=== PATIENT | male | born 1955 | race Caucasian/White ===

== ENCOUNTER 2020-10-13 11:00 | Inpatient (IN) ==
[2020-10-13] MEDS ORDERED: MoRPHine SULFATE 10 MG/ML CARP/VIAL IM STA (11:28)
--- NOTE | 2020-10-13 11:33 | Emergency Department Note ---
Impression & Plan Disc disorder of cervical region, Left arm weakness, High serum chloride ED Provider Note NAME: GRIS DUVALL AGE: 65 SEX: M : 1955 ARRIVES VIA: Walk-In INFORMANT: Patient ED PROVIDER(S): Ken Enriquez DO CHIEF COMPLAINT: neck pain and arm pain HPI: Patient is a 65-year-old male who presents the ER for severe left neck pain and arm pain and weakness. Everything has been present since this past May. He has had 1 previous surgery. He was set to get operated on at the end of August and again today but it got canceled. He was taking muscle relaxers but notes that that is no longer helping. He can no longer sleep with the pain. He was prescribed baclofen. He is taking baclofin 10 mg 3 times a day. He took 2000 milligrams of Tylenol last night but has not taken any Tylenol prior to that or after that. He said no improvement. He notes that the weakness has been getting worse in his left upper extremity. Pain has gotten severely worse in the past several days. He ran out of baclofen on Monday. ROS: See above HPI for pertinent positives & negatives. A total of 10 systems reviewed and were otherwise negative. PAST MEDICAL HISTORY:See Below PAST SURGICAL HISTORY:See Below FAMILY HISTORY:See Below SOCIAL HISTORY:See Below HOME MEDICATIONS:See Below ALLERGIES:See Below VITALS:See Below PHYSICAL EXAMINATION: GENERAL: Sitting up in bed, alert, significant distress, in tears, holding left arm against the chest EYE EXAM: normal conjunctiva. OROPHARYNX: no exudate, no erythema, lips, buccal mucosa, and tongue normal and mucous membranes are moist NECK: supple, no nuchal rigidity, no adenopathy, tenderness in the cervical reg ion tracking down through the left trapezius and into the left humerus. LUNGS: Clear to auscultation. Normal chest wall mechanics HEART: no murmurs, S1 normal and S2 normal ABDOMEN: abdomen soft, non-tender, normo-active bowel sounds, no masses, no rebound or guarding. UPPER EXTREMITIES: upper extremities are grossly normal. Grasp as well as abduction and adduction of the fingers 5 out of 5 on the right hand 4 out of 5 on the left. Flexion extension of the wrist is 5 out of 5 bilaterally. Significant pain with flexion extension of the elbow and shoulder. Cannot go more than 10 to 15 degrees. Radial pulse 2 of 4 bilaterally. Gross sensation intact. Able to wiggle fingers. LOWER EXTREMITIES: No pitting edema. NEURO EXAM: Normal sensorium, cranial nerves II-XII grossly intact, normal speech, no gross weakness of arms, no gross weakness of legs. MEDICAL DECISION MAKING: Patient is a 65-year-old male who presents the ER for worsening weakness and sev ere pain in his left upper extremity. On exam he does have weakness with grasp. He notes symptoms have significantly worsened over the past 3 days. IV established blood work was obtained and shows no significant leukocytosis or anemia. BMP with a high serum chloride. LFTs were marginally elevated. Covid was negative. Patient declined any additional images. He was given IV narcotics. He does have clear weakness of the left upper extremity and was in significant pain. Discussed with Dr. Stratton and he admitted for further work-up as this gentleman does need surgery and has a clear deficit. Triage Nursing notes reviewed. Prior medical records reviewed Vital Signs: reviewed and remarkable for HTN Differential diagnosis: Cervical strain, fracture, cervical disc disease, lymphadenitis, meningitis, tumor, arterial dissection, thyroiditis, parotitis, mastoiditis, neurologic, cardiovascular, as well as other pathologies. ER treatment provided: See below Diagnostics interpreted by me: ECG: none Cardiac Monitoring: An order was placed for continuous cardiac monitoring. The monitor shows a rate of 70 with sinus rhythm. Laboratory studies: As stated above and show below. Imaging studies: See below Consultation(s): Discussed with Dr. Stratton for further evaluation ED COURSE: Procedures: none Critical Care: None Past Med/Surg History Medical History Chronic obstructive pulmonary disease MILD- BREATHING STABLE- OCC AGGREVATION OF SYMPTOMS Degenerative disc disease CERVICAL GERD (gastroesophageal reflux disease) WELL CONTROLLED AND STABLE Hyperlipidemia Hypertension Osteoarthritis Surgical History H/O neck surgery 2017---CERVICAL normal ROM C5-7 History of appendectomy History of colonoscopy with polypectomy History of esophagogastroduodenoscopy (EGD) History of hand surgery right middle finger tip of finger removed History of surgery NERVE GRAFT LEFT HAND History of wisdom tooth extraction S/P left knee arthroscopy X3 Family History Other No family history of adverse response to anesthesia Social History Smoking Status: Former smoker Tobacco Type: Cigarettes Second Hand Exposure: No; Hx Alcohol Use: No Hx Substance Use: No Preferred Language: Korean Communication Ability: Effective 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: No Beliefs That Will Affect Care: None Current Living Situation: Spouse Feels Safe at Home: Yes Assistive Devices: Denture - Upper and Glasses Allergies Allergies Allergy/AdvReac Type Severity Reaction Status Date / Time No Known Allergies Allergy Unknown Verified 10/13/20 11:58 IVORY SOAP Allergy Mild RASH Uncoded 10/13/20 11:58 Home Meds Home Medications Medication Instructions Recorded Confirmed pantoprazole 40 mg PO QAM 03/30/20 10/13/20 albuterol sulfate [ProAir HFA] 2 puff INHALATION QID PRN 09/07/20 10/13/20 baclofen 10 mg PO TID PRN 09/07/20 10/13/20 tiotropium-olodaterol [Stiolto 2 puff INHALATION QAM 09/07/20 10/13/20 Respimat] atorvastatin 10 mg PO QAM 09/14/20 10/13/20 lisinopril 20 mg PO QAM 09/14/20 10/13/20 Results & Data (ED) Vital Signs Vital Signs - 24 hr 10/13/20 11:04 Temperature 36.6 C Temperature Source Oral Pulse Rate 99 H Respiratory Rate 18 Respiratory Effort / Characteristics Non-Labored Respiratory Depth Normal Blood Pressure 167/96 H Blood Pressure Mean 119 Blood Pressure Position Sitting Pulse Oximetry 96 Oxygen Delivery Method Room Air Sepsis Recent Fever Within 48 Hours No Sepsis New/Unexplained Change in Mental Status N/A Sepsis Action Taken by Nursing No Action Required Laboratory Data Result diagrams: 10/13/20 11:34 10/13/20 15:35 Lab Results 10/13/20 10/13/20 Range/Units 11:34 11:34 WBC 6.29 (4.8-10.8) K/uL RBC 4.39 L (4.7-6.1) M/uL Hgb 14.2 (14.0-18.0) g/dL Hct 41.2 L (42-52) % MCV 93.8 (80-100) fL MCH 32.3 (25-34) pg MCHC 34.5 (32-36) g/dL RDW Std Deviation 46.7 H (36.4-46.3) fL RDW Coeff of Lexi 13.5 (11.5-14.5) % Plt Count 276 (130-400) K/uL MPV 9.9 (7.4-10.4) fL Immature Gran % (Auto) 0.2 % Neut % (Auto) 57.0 % Lymph % (Auto) 28.6 % [place] % (Auto) 12.2 % Eos % (Auto) 1.7 % Baso % (Auto) 0.3 % Neut # (Auto) 3.58 (1.4-6.5) K/uL Lymph # (Auto) 1.80 (1.2-3.4) K/uL [place] # (Auto) 0.77 H (0.11-0.59) K/uL Eos # (Auto) 0.11 (0-0.5) K/uL Baso # (Auto) 0.02 (0-0.2) K/uL Immature Gran # (Auto) 0.01 (0.00-0.02) K/uL Sodium 139 (136-145) mmol/L Potassium (3.5-5.1) mmol/L Chloride 108 H (98-107) mmol/L Carbon Dioxide 27 (21-32) mmol/L Anion Gap 4.0 (3-11) BUN 14 (7-18) mg/dl Creatinine 1.04 (0.6-1.4) mg/dl Est Cr Clr Drug Dosing 78.3 ml/min Est GFR ( Amer) 87.5 Est GFR (Non-Af Amer) 75.5 BUN/Creatinine Ratio 13.3 (10-20) Glucose 97 (70-99) mg/dl Calcium 8.7 (8.5-10.1) mg/dl Total Bilirubin 1.2 H (0.2-1) mg/dl AST (15-37) U/L ALT 86 H (12-78) U/L Alkaline Phosphatase 70 (45-117) U/L Total Protein 7.2 (6.4-8.2) gm/dl Albumin 3.6 (3.4-5.0) gm/dl Globulin 3.6 (2.5-4.0) gm/dl Albumin/Globulin Ratio 1.0 (0.9-2) Administered Medications Discontinued Medications Morphine Sulfate (Morphine Sulfate 10 Mg/Ml Carp/Vial) 6 mg IM NOW STA Stop: 10/13/20 11:29 Last Admin: 10/13/20 12:52 Dose: Not Given [place]ed [place]: [id number] Morphine Sulfate (Morphine Sulfate 4 Mg/Ml 1 Ml Carp\Vial) 4 mg IV NOW STA Stop: 10/13/20 11:36 Last Admin: 10/13/20 12:23 Dose: 4 mg Documented by: [id number] Discharge Plan Visit Data Chief Complaint: Neck Injury/Pain Stated Complaint: NECK PAIN & LEFT ARM PAIN ED Provider: Ken Enriquez Discharge Problem: Disc disorder of cervical region, Left arm weakness, High serum chloride Patient Disposition: Admitted As Inpatient Discharge Instructions Interventions: ED Discharge Assessment Last Done: 10/13/20 14:26
[2020-10-13] MEDS ORDERED: MoRPHine SULFATE 4 MG/ML 1 ML CARP\\VIAL IV STA (11:35)
[2020-10-13 12:27] LABS: Basophils # (auto) 0.02 K/uL (0-0.2); Basophils % (auto) 0.3 %; Eosinophils # (auto) 0.11 K/uL (0-0.5); Eosinophils % (auto) 1.7 %; Hematocrit (blood only) 41.2 % (42-52); Hemoglobin 14.2 g/dL (14.0-18.0); Immature Granulocytes # (auto) 0.01 K/uL (0.00-0.02); Immature Granulocytes % (auto) 0.2 %; Lymphocytes % (auto) 28.6 %; Mean Corpuscular Hemoglobin 32.3 pg (25-34); Mean Corpuscular Hgb Conc 34.5 g/dL (32-36); Mean Corpuscular Volume 93.8 fL (80-100); Mean Platelet Volume 9.9 fL (7.4-10.4); Monocytes # (auto) 0.77 K/uL (0.11-0.59); Monocytes % (auto) 12.2 %; Neutrophils # (auto) 3.58 K/uL (1.4-6.5); Platelet Count 276 K/uL (130-400); RDW Coefficient of Variation 13.5 % (11.5-14.5); RDW Standard Deviation 46.7 fL (36.4-46.3); Red Blood Count 4.39 M/uL (4.7-6.1); White Blood Count 6.29 K/uL (4.8-10.8)
[2020-10-13 12:54] LABS: Albumin Level 3.6 gm/dl (3.4-5.0); BUN Creatinine Ratio 13.3 (10-20); Bilirubin,Total 1.2 mg/dl (0.2-1); Calcium 8.7 mg/dl (8.5-10.1); Creatinine Clr Calc Pharmacy 78.3 ml/min; Est GFR (African American) 87.5; Est GFR (Non-African American) 75.5; Globulin 3.6 gm/dl (2.5-4.0); Total Protein 7.2 gm/dl (6.4-8.2)
[2020-10-13] MEDS ORDERED: ONDANSETRON 4 MG OD TAB PO PRN (14:58)
[2020-10-13] MEDS ORDERED: LORazepam 1 MG TAB PO PRN (14:58)
[2020-10-13] MEDS ORDERED: PROMETHAZINE HCL 12.5 MG in SODIUM CHLORIDE 0.9% 50 ML IV PRN (14:58)
[2020-10-13] MEDS ORDERED: BACLOFEN 10 MG TAB PO PRN (14:58)
[2020-10-13] MEDS ORDERED: LORazepam 1 MG/2 ML VIAL IV PRN (14:58)
[2020-10-13] MEDS ORDERED: METOCLOPRAMIDE HCL INJ 5 MG/ML 2 ML VIAL IV PRN (14:58)
[2020-10-13] MEDS ORDERED: ONDANSETRON INJ 2 MG/ML 2 ML VIAL IV PRN (14:58)
[2020-10-13] MEDS ORDERED: ALBUTEROL HFA 8 GM INHALER INH PRN (15:17)
[2020-10-13 16:02] LABS: Potassium 4.1 mmol/L (3.5-5.1)
[2020-10-13] MEDS ORDERED: oxyCODONE HCL IR 5 MG TAB (IMMEDIATE RELEASE) PO PRN (18:10)
[2020-10-13] MEDS ORDERED: HYDROmorphone INJ 0.5 MG/0.5 ML SYR IV PRN (18:16)
[2020-10-13] MEDS: oxyCODONE HCL IR 5 MG TAB (IMMEDIATE RELEASE) PO PRN ×2 (19:09→23:13)
[2020-10-13] MEDS: LACTATED RINGER'S 1,000 ML IV SCH (19:17)
[2020-10-14] MEDS: LACTATED RINGER'S 1,000 ML IV SCH ×2 (05:31→12:45)
[2020-10-14] MEDS ORDERED: ceFAZolin 2000MG 2,000 MG/15 ML SYR IV SCH (06:00)
[2020-10-14] MEDS ORDERED: HYDROmorphone INJ 2 MG/ML SYR/VIAL IV ONE (06:23)
[2020-10-14] MEDS ORDERED: ROCURONIUM BROMIDE 10 MG/ML 5 ML VIAL IV ONE (06:23)
[2020-10-14] MEDS ORDERED: DEXAMETHASONE SOD INJ 4 MG/ML VIAL IV ONE (06:23)
[2020-10-14] MEDS ORDERED: MIDAZOLAM HCL 1 MG/ML 2ML VIAL IV ONE (06:23)
[2020-10-14] MEDS ORDERED: LIDOCAINE HCL 2% 2 ML VIAL/AMP(20MG/ML) INFIL ONE (06:23)
[2020-10-14] MEDS ORDERED: PROPOFOL IV EMULSION 10 MG/ML 100 ML VIAL IV ONE ×2 (06:23)
[2020-10-14] MEDS ORDERED: ONDANSETRON INJ 2 MG/ML 2 ML VIAL IV ONE (06:23)
[2020-10-14] MEDS ORDERED: SUGAMMADEX SODIUM 200 MG/2 ML VIAL IV ONE (06:33)
[2020-10-14] MEDS ORDERED: ALBUMIN HUMAN 5% 12.5 GM/250 ML VIAL IV ONE (06:33)
[2020-10-14] MEDS ORDERED: HYDROmorphone INJ 1 MG/ML SYRINGE IV PRN ×2 (06:51→12:13)
[2020-10-14] MEDS ORDERED: ATROPINE SULFATE 0.1 MG/ML 10ML SYR IV PRN (06:51)
[2020-10-14] MEDS ORDERED: ONDANSETRON INJ 2 MG/ML 2 ML VIAL IV PRN ×2 (06:51→12:13)
[2020-10-14] MEDS ORDERED: ePHEDrine sulfate 50 MG/ML AMP IV PRN (06:51)
[2020-10-14] MEDS ORDERED: fentaNYL citrate 100 MCG/2 ML VIAL IV PRN (06:51)
[2020-10-14] MEDS ORDERED: BACITRACIN INJ 50,000 UNIT VIAL ONE (07:02)
--- NOTE | 2020-10-14 07:38 | Anesthesiology Consultation ---
Date of Service October 14, 2020 Assessment & Plan (1) Encounter for pre-operative examination: Chart Review Chart Review: Acceptable Risk for Surgery and Patient NOT seen in Pre Admission Testing Consults Requested none History Surgery Operation Date: 10/14/20 07:45 Proposed Procedures p C4-C5 Anterior Cervical Discectomy and Fusion, Possible C5-C7 Hardware Removal, Spinal Cord Monitoring - Carlos Stratton DO Height/Weight Height: 5 ft 7 in Weight: 93.8 kg Allergies Allergy/AdvReac Type Severity Reaction Status Date / Time No Known Allergies Allergy Unknown Verified 10/13/20 11:58 IVORY SOAP Allergy Mild RASH Uncoded 10/13/20 11:58 Medications Home Medications Medication Instructions Recorded Confirmed Last Taken pantoprazole 40 mg PO QAM 03/30/20 10/13/20 10/13/20 albuterol sulfate [ProAir HFA] 2 puff INHALATION QID PRN 09/07/20 10/13/20 10/12/20 baclofen 10 mg PO TID PRN 09/07/20 10/13/20 10/10/20 tiotropium-olodaterol [Stiolto 2 puff INHALATION QAM 09/07/20 10/13/20 10/13/20 Respimat] atorvastatin 10 mg PO QAM 09/14/20 10/13/20 10/13/20 lisinopril 20 mg PO QAM 09/14/20 10/13/20 10/13/20 Active Medications Generic Name Dose Route Start Last Admin Trade Name Freq PRN Reason Stop Dose Admin Lactated Ringer's 1,000 mls @ 100 mls/hr 10/13/20 14:58 10/14/20 05:31 Lr IV 11/12/20 14:57 100 mls/hr .Q10H JUANITA Administration Oxycodone HCl 5 - 10 mg 10/13/20 19:15 10/13/20 23:13 Oxycodone Hcl Ir 5 Mg Tab (Immediate Release) PO 10/27/20 18:09 10 mg Q4H PRN Administration Pain NPO Date Last Intake of Fluids: 10/13/20 Time Last Intake of Fluids: 23:00 Date Last Intake of Solids: 10/13/20 Time Last Intake of Solids: 18:00 Past Medical History Medical History Chronic obstructive pulmonary disease MILD- BREATHING STABLE- OCC AGGREVATION OF SYMPTOMS Degenerative disc disease CERVICAL GERD (gastroesophageal reflux disease) WELL CONTROLLED AND STABLE Hyperlipidemia Hypertension Osteoarthritis Exercise / Class Metabolic Activity II 4-5 Yardwork/Stairs/Walk up hill Past Family History Family History Other No family history of adverse response to anesthesia Past Surgical History Surgical History H/O neck surgery 2017---CERVICAL normal ROM C5-7 History of appendectomy History of colonoscopy with polypectomy History of esophagogastroduodenoscopy (EGD) History of hand surgery right middle finger tip of finger removed History of surgery NERVE GRAFT LEFT HAND History of wisdom tooth extraction S/P left knee arthroscopy X3 Past Anesthesia History No Hx of Anesthesia Complications and No Family Hx of Anesthesia Complications History of PONV No Hx of PONV and No Hx of Motion Sickness Social History Smoking Status: Former smoker tobacco type: cigarettes Hx Alcohol Use: No Alcohol type: beer alcohol intake frequency: other Hx Substance Use: No substance use type: does not use Physical Exam Vital Signs Last Vital Signs Temp 36.7 C 10/14/20 07:29 Pulse 77 10/14/20 07:29 Resp 20 10/14/20 07:29 BP 134/61 10/14/20 07:29 Pulse Ox 92 10/14/20 07:29 Testing Laboratory Results 10/13/20 11:34 10/13/20 15:35 Blood Type A Positive 10/13/20 15:35 Antibody Screen NEGATIVE 10/13/20 15:35
--- NOTE | 2020-10-14 08:00 | History & Physical Bridge Note ---
Date of Service October 14, 2020 History & Physical Bridge Note I have examined the patient, reviewed the History & Physical and in the interval since the performance of the History & Physical I have noted the following changes of clinical significance: no changes noted
--- NOTE | 2020-10-14 08:02 | History & Physical Report ---
Date of Service October 14, 2020 Assessment & Plan (1) Cervical stenosis of spinal canal: Admission and Anticipated Discharge Date Admission Date: October 13, 2020 C4-C5 anterior cervical discectomy and fusion, possible C5-C7 hardware removal History of Present Illness Chief Complaint: Neck and arm pain Primary Care Provider: Mariaelena Carpenter PA-C This is a 65-year-old male presents with chronic persistent neck and arm pain. Failing course of nonoperative care is here for surgical invention. Allergies Allergy/AdvReac Type Severity Reaction Status Date / Time No Known Allergies Allergy Unknown Verified 10/13/20 11:58 IVORY SOAP Allergy Mild RASH Uncoded 10/13/20 11:58 Home Medications Medication Instructions Recorded Confirmed Type pantoprazole 40 mg PO QAM 03/30/20 10/13/20 History albuterol sulfate [ProAir HFA] 2 puff INHALATION QID PRN 09/07/20 10/13/20 History baclofen 10 mg PO TID PRN 09/07/20 10/13/20 History tiotropium-olodaterol [Stiolto 2 puff INHALATION QAM 09/07/20 10/13/20 History Respimat] atorvastatin 10 mg PO QAM 09/14/20 10/13/20 History lisinopril 20 mg PO QAM 09/14/20 10/13/20 History Past Med/Surg History Medical History Chronic obstructive pulmonary disease MILD- BREATHING STABLE- OCC AGGREVATION OF SYMPTOMS Degenerative disc disease CERVICAL GERD (gastroesophageal reflux disease) WELL CONTROLLED AND STABLE Hyperlipidemia Hypertension Osteoarthritis Surgical History H/O neck surgery 2017---CERVICAL normal ROM C5-7 History of appendectomy History of colonoscopy with polypectomy History of esophagogastroduodenoscopy (EGD) History of hand surgery right middle finger tip of finger removed History of surgery NERVE GRAFT LEFT HAND History of wisdom tooth extraction S/P left knee arthroscopy X3 Family History Other No family history of adverse response to anesthesia Social History Smoking Status: Former smoker Tobacco Type: Cigarettes Second Hand Exposure: No; Hx Alcohol Use: No Hx Substance Use: No Preferred Language: Yi Communication Ability: Effective [place] Required: No Beliefs That Will Affect Care: None Current Living Situation: Spouse Feels Safe at Home: Yes Assistive Devices: None Physical Exam Physical Exam: Patient is alert and oriented Heart regular rate and rhythm Lungs clear to auscultation Results & Data ([facility]) Vital Signs (Past 12 Hours) Vital Signs Temp Pulse Resp BP Pulse Ox 10/14/20 07:29 36.7 C 77 20 134/61 92 10/14/20 07:02 36.6 C 80 16 99/69 L 92 10/13/20 22:55 36.8 C 76 16 117/73 92 Code Status & VTE Plan VTE Prophylaxis Plan VTE Prophylaxis will be ordered: Yes
[2020-10-14] MEDS ORDERED: FLOSEAL HEMOSTATIC MATRIX 10ML TOP ONE (09:12)
--- NOTE | 2020-10-14 09:22 | Operative Report ---
Post Operative Report Pre & Post Diagnosis Operation Date: 10/14/20 07:45 Pre-Op Diagnosis: Cerivical Radiculopathy Post-Op Diagnosis: Cerivical Radiculopathy I identified the patient and participated in the time-out.: Yes Procedure Operation Date: 10/14/20 07:45 Actual Procedures #1 anterior cervical discectomy with bilateral foraminotomies C4-C5. #2 anterior cervical arthrodesis C4-C5 per #3 placement of globus 8 mm interbody cage filled with DBM at C4-C5. Surgeon Carlos Stratton, Insurance Coder Afua Serra Estimated Blood Loss 10 Findings Consistent with Post-Op Diagnosis Specimens None Indications This is a 65-year-old male who presents above-mentioned diagnosis after failing course of nonoperative care is here for the above-mentioned seizure. Description of Procedure Patient met with properly case cussed all questions were addressed but that the patient was taken back to op suite underwent an patient placed in spine position injected with head Hughes head butler. All bony prominences well-padded eyes inspected to ensure no external pressure placed upon up at this point the anterior cervical spine was prepped and draped in a sterile fashion. With assistance of fluoroscopy identified the C for C5 displacement transverse incision was placed on the right anterior aspect of the cervical spinal lines region. Sharp dissection with assistance of bipolar electrocautery was performed down to and exposing the anterior cervical spine from C4-C5. A self-retaining tractor was placed. Then performed a complete discectomy at C4-5 out to the uncovertebral joints bilaterally. [place] distracting pins were utilized to assist in visualization. I removed all posterior annular fibers longitudinal ligament bilateral foraminotomies performed. Endplates were then burred to subcortical bleeding bone and an 8 mm globus interbody cage filled with DBM tapped in position and screwed into place with fluoroscopic visualization. The incision was then copiously irrigated explored to ensure no damage to surrounding structures remaining bleeding. 10 round MISTY drain inserted. Incision was then closed with 2 Vicryl in the fascia 4 Monocryl for final skin closure. Steri-Strip sterile dressings placed. Patient will continue PACU stable condition. Please note spinal cord monitoring was utilized at the procedure no changes noted. Marsha Serra was present at the entire surgery involved in patient positioning complex portions of the surgery and final skin closure. I attest to the content of the Intraoperative Record and any orders documented therein. Any exceptions are noted below.
--- NOTE | 2020-10-14 09:48 | Fluoroscopy Report ---
FL cervical 2-3V CLINICAL HISTORY: ACDF C4-C5 C5-C7 HW COMPARISON STUDY: None. FLUOROSCOPY TIME: 12.7 seconds. FLUOROSCOPIC IMAGES: 2 FINDINGS: Fluoroscopy provided during C4-C5 anterior discectomy and fusion. Hardware within the lower cervical spine is partially imaged on this examination. IMPRESSION: Fluoroscopy provided during C4-C5 anterior discectomy and fusion. ACT 112: Negative or not required by law. Electronically signed by: Jamie Fried M.D. 10/14/2020 9:46 AM
[2020-10-14] MEDS ORDERED: ALBUT/IPRATROP 3MG/0.5MG NEB 3 ML VIAL NEB STA (10:04)
[2020-10-14] MEDS ORDERED: MAGNESIUM HYDROXIDE SUSP 30 ML UDC PO PRN (12:13)
[2020-10-14] MEDS ORDERED: LORazepam 0.5 MG/1 ML VIAL IV PRN (12:13)
[2020-10-14] MEDS ORDERED: HYDROmorphone INJ 0.5 MG/0.5 ML SYR IV PRN (12:13)
[2020-10-14] MEDS ORDERED: SOD PHOSPHATE/SOD BIPHOSPHATE ENEMA 132 ML BTL PR PRN (12:13)
[2020-10-14] MEDS ORDERED: dexAMETHasone 8 MG in SYRINGE 0 ML IV PRN (12:13)
[2020-10-14] MEDS ORDERED: FAMOTIDINE 20 MG TAB PO PRN (12:13)
[2020-10-14] MEDS ORDERED: RACEPINEPHRINE 2.25% NEBU SOLN 0.5 ML VIAL INH PRN (12:13)
[2020-10-14] MEDS ORDERED: diphenhydrAMINE Capsule 25 MG CAP PO PRN (12:13)
[2020-10-14] MEDS ORDERED: LACTATED RINGER'S 1,000 ML IV SCH (12:13)
[2020-10-14] MEDS ORDERED: DO NOT ADMINISTER PNEUMOCOCCAL VACCINE PRN (12:13)
[2020-10-14] MEDS ORDERED: PROMETHAZINE HCL 12.5 MG in SODIUM CHLORIDE 0.9% 50 ML IV PRN (12:13)
[2020-10-14] MEDS ORDERED: ACETAMINOPHEN 500 MG TAB PO PRN (12:13)
[2020-10-14] MEDS ORDERED: hydrOXYzine HCl 25 MG TAB PO PRN (12:13)
[2020-10-14] MEDS ORDERED: ONDANSETRON 4 MG OD TAB PO PRN (12:13)
[2020-10-14] MEDS ORDERED: ACETAMINOPHEN 1,000 MG/100 ML VIAL IV PRN (12:13)
[2020-10-14] MEDS ORDERED: traMADol HCL 50 MG TABLET PO PRN (12:13)
[2020-10-14] MEDS ORDERED: oxyCODONE HCL IR 5 MG TAB (IMMEDIATE RELEASE) PO PRN (12:13)
[2020-10-14] MEDS ORDERED: LORazepam 0.5 MG TAB PO PRN (12:13)
[2020-10-14] MEDS ORDERED: DO NOT ADMINISTER FLU VACCINE PRN (12:13)
[2020-10-14] MEDS ORDERED: ALUMINUM/MAGNESIUM SUSP 30 ML UDC PO PRN (12:13)
[2020-10-14] MEDS ORDERED: METOCLOPRAMIDE HCL INJ 5 MG/ML 2 ML VIAL IV PRN (12:13)
[2020-10-14] MEDS ORDERED: NALOXONE HCL 0.4 MG/1 ML VIAL/CARP IV PRN (12:13)
[2020-10-14] MEDS: ATORVASTATIN 10 MG TAB PO SCH (12:44)
[2020-10-14] MEDS: lisinopril 20 MG TAB PO SCH (12:44)
[2020-10-14] MEDS: PANTOprazole 40 MG TAB PO SCH (12:44)
[2020-10-14] MEDS: UMECLIDINIUM/VILANTEROL 62.5/25MCG 7 PUFFS/INHALER INH SCH (12:46)
--- NOTE | 2020-10-14 15:14 | Anesthesiology Progress Note ---
Date of Service October 14, 2020 Anesthesia Post Procedure Vital Signs Vital Signs: Temp Pulse Pulse Resp BP BP Pulse Ox 10/14/20 14:34 36.9 C 93 H 16 113/79 92 10/14/20 13:32 36.7 C 100 H 16 142/90 H 92 10/14/20 12:33 36.7 C 96 H 16 153/92 H 92 10/14/20 12:16 36.9 C 92 H 18 143/77 H 92 10/14/20 11:41 88 23 94 10/14/20 11:30 36.5 C 92 H 18 129/79 92 10/14/20 11:20 36.6 C 93 H 16 125/88 93 10/14/20 11:10 92 H 16 140/70 92 10/14/20 11:00 94 H 16 135/75 93 10/14/20 10:50 95 H 15 155/77 H 91 10/14/20 10:40 96 H 15 111/75 91 10/14/20 10:30 96 H 18 129/83 91 10/14/20 10:20 97 H 20 133/82 90 10/14/20 10:10 99 H 22 131/88 98 10/14/20 10:00 104 H 22 128/78 98 10/14/20 09:50 104 H 22 140/75 99 10/14/20 09:40 93 H 20 143/91 H 98 10/14/20 09:38 37.0 C 99 H 16 125/82 94 10/14/20 07:29 36.7 C 77 20 134/61 92 10/14/20 07:02 36.6 C 80 16 99/69 L 92 10/13/20 22:55 36.8 C 76 16 117/73 92 10/13/20 15:34 36.6 C 68 16 151/82 H 145/105 H 96 Pain Intensity Neck: Pain Intensity: 0 Transfer of Care Handoff Completed per policy Notes Mental Status: alert / awake / arousable and participated in evaluation Patient Amnestic to Procedure: Yes Nausea / Vomiting: adequately controlled Pain: adequately controlled Airway Patency, RR, SpO2: stable & adequate BP & HR: stable & adequate Hydration State: stable & adequate Anesthetic Complications: no major complications apparent and Pt Satisfied with anesthetic care
[2020-10-14] MEDS: ceFAZolin 2000MG 2,000 MG/15 ML SYR IV SCH (16:18)
[2020-10-14] MEDS ORDERED: DOCUSATE SODIUM/SENNA 50/8.6MG TAB PO SCH (21:00)
[2020-10-15] MEDS: ceFAZolin 2000MG 2,000 MG/15 ML SYR IV SCH (00:05)
[2020-10-15] MEDS: oxyCODONE HCL IR 5 MG TAB (IMMEDIATE RELEASE) PO PRN (00:07)
[2020-10-15] MEDS: UMECLIDINIUM/VILANTEROL 62.5/25MCG 7 PUFFS/INHALER INH SCH (07:44)
[2020-10-15] MEDS: PANTOprazole 40 MG TAB PO SCH (07:44)
[2020-10-15] MEDS: lisinopril 20 MG TAB PO SCH (07:44)
[2020-10-15] MEDS: ATORVASTATIN 10 MG TAB PO SCH (07:44)
--- NOTE | 2020-10-15 09:21 | Discharge Summary ---
Date of Service October 15, 2020 Admission HPI Per Admitting Provider This is a 65-year-old male presents with chronic persistent neck and arm pain. Failing course of nonoperative care is here for surgical invention. Principal Diagnosis Cervical spinal stenosis with radiculopathy Discharge Data Allergies Allergy/AdvReac Type Severity Reaction Status Date / Time No Known Allergies Allergy Unknown Verified 10/13/20 11:58 IVORY SOAP Allergy Mild RASH Uncoded 10/13/20 11:58 Consultations 10/13/20 11:38 ED Decision to Admit Stat Procedures Performed Operation Date: 10/14/20 07:45 Actual Procedures p C4-C5 Anterior Cervical Discectomy and Fusion, Spinal Cord Monitoring(Not Applicable) - Carlos Stratton DO Ordered Studies 10/14/20 07:45 FL cervical 2-3V Routine FL fluoroscopy <1hr Routine Hospital Course (1) Cervical stenosis of spinal canal: Patient went anterior cervical discectomy and fusion C4-C5. He said marked improvement of his pain postoperative. He swallowing well. No hoarseness. Excellent strength testing. MISTY drain decreasing appropriately. Subsequent discharge home. Discharge orders instructions from the chart for further review. Total Time Total Time Spent Total Time Spent (In Minutes): 20 minutes Discharge Plan Discharge Items Patient Disposition: Home - Self-Care Reason For Visit: CERVIVAL RADICULOPATHY Discharge Diagnosis: Cervical radiculopathy Activity: As commented below Non-emergency contact: Primary Care Provider Call non-emergency contact if: you have any medication questions Follow-up/Referrals: Mariaelena Carpenter PA-C [Primary Care Provider] - Diet: Regular Addtl Attending Provider Instructions: ACTIVITY RECOMMENDATIONS: SELF CARE INSTRUCTIONS AFTER CERVICAL FUSIONS 1. No smoking. Smoking drastically decreases the chance of a solid fusion. 2. No bending, lifting more than 5 pounds, or twisting (roll like a log when turning in bed). 3. You may shower 3 days after surgery. Thoroughly dry wound. Do not soak in the tub. 4. Cervical collar: Must be worn at all times including sleeping. You may remove the brace only to bath, eat and if you are sitting in a recliner. 5. Please walk as much as you can for exercise. Gradually increase the distance that you walk as your endurance increases. SPECIAL CARE INSTRUCTIONS: VERY IMPORTANT TO READ AND REVIEW A. Do not take any anti-inflammatory medications (i.e. Indocin, Advil, Aspirin, Naprosyn, Aleve, Motrin, etc.) as these may inhibit the chance of a solid fusion. Tylenol is okay to take. B. Your surgical incision has been closed with a cosmetic suture under the skin that will dissolve in about 6 weeks. In 14 days, you can use a pair of clean scissors and cut the suture that is left outside of the skin at the ends of your incision. C. Complications are uncommon, but please contact us if you have any signs or symptoms of: 1. wound infection (fever higher than 102.5 degrees F, redness, separation of wound, drainage, or increasing pain from the incision) 2. blood clots in legs (pain, swelling, redness and warmth in legs) 3. urinary tract infection (fever higher than 102.5 degrees, burning upon urination or increased frequency of urination) 4. nerve problems (inability to walk on your toes or heels, numbness, loss of bowel or bladder control) 5. any other symptoms that concern you. D. Please call the office at if you have any concerns or questions about your operation or recovery. MANAGING PAIN AFTER SPINAL SURGERY 1. Narcotic medication is intended for short-term use and will be provided for surgical pain. Surgical pain usually lasts for a period of 4-6 weeks. Narcotic medication includes Percocet, Vicodin, Darvocet, Tylenol #3 or Lortab. 2. Longer-term pain is more appropriately treated with non-narcotic medication such as Tylenol ES. 3. Muscle spasm is not appropriately treated with narcotics. Muscle relaxers such as Soma, Flexeril or Skelaxin can be used along with Tylenol ES. 4. Remember that we all live with some "aches and pains". This is not unusual or uncommon after an injury or as we get older. 5. We will provide appropriate medication within the normal guidelines of their prescribed use. We will also be very cautious and aware of potential abuse and extended duration of patients' medication needs. 6. Please allow 2-3 days to process refills. Prescriptions will not be mailed but must be picked up at the office. FOLLOW UP VISIT: Keep your scheduled follow-up appointment. Any questions, please call the office at . Pending Studies at Discharge: No Stand-Alone Forms: My [facility] [employer], Smoking Cessation Medications and DC Order Prescriptions: New tramadol 50 mg tablet 50 mg PO Q6H PRN (Reason: pain, moderate) Qty: 20 RF: 0 oxycodone 5 mg tablet 5 mg PO Q6H PRN (Reason: pain, severe) Qty: 20 RF: 0 Continued pantoprazole 40 mg Tablet,Delayed Release (Dr/Ec) 40 mg PO QAM RF: 0 baclofen 10 mg Tablet 10 mg PO TID PRN (Reason: Pain) RF: 0 albuterol sulfate [ProAir HFA] 90 mcg/actuation Hfa Aerosol Inhaler 2 puff INHALATION QID PRN (Reason: SHORT OF BREATH) RF: 0 Stiolto Respimat 2.5-2.5 mcg/actuation Mist 2 puff INHALATION QAM RF: 0 atorvastatin 20 mg Tablet 10 mg PO QAM RF: 0 lisinopril 10 mg Tablet 20 mg PO QAM RF: 0 Discharge Orders: Discharge Order (Routine); Ordered 10/15/20 Ordered By: Carlos Stratton Admission Data Admit Date/Time: 10/13/20 12:13 Attending Provider: Carlos Stratton Admit Provider: Carlos Stratton Primary Care Provider: Mariaelena Carpenter Other Providers: Carlos Stratton
[2020-10-15] MEDS ORDERED: POLYETHYLENE (MIRALAX) 17 GM PACK PO SCH (09:30)
[2020-10-16] MEDS ORDERED: bisacodyL 10 MG SUPP PR PRN (09:23)
== END 2020-10-15 11:45 | disposition home or self-care (01) | DRG 473 ==
LOC: ED 11:00 → 3N 12:13

== ENCOUNTER 2021-11-14 13:54 | Inpatient (IN) ==
[2021-11-14] MEDS ORDERED: ALBUT/IPRATROP 3MG/0.5MG NEB 3 ML VIAL NEB STA (14:17)
[2021-11-14] MEDS ORDERED: methylPREDNISolone 125 MG/2 ML VIAL IV STA (14:17)
--- NOTE | 2021-11-14 14:17 | Emergency Department Note ---
History of Present Illness General Chief complaint: Syncope Stated complaint: PASSED OUT 2X TODAY Time Seen by Provider: 11/14/21 14:02 History of Present Illness Provider complaint: Syncope body aches shortness of breath cough nausea Onset (ago): day(s) 3 Maximum Pain Intensity: 9 Associated symptoms: + cough, + malaise, + nausea/vomiting, + shortness of breath and + syncope; no chest pain 66-year-old male with history of COPD presents emergency department for syncope, body aches, shortness of breath, cough, and nausea. Patient states the symptoms been going on for the last week. Patient states he thinks he has a virus. When asked if he was vaccinating his COVID-19 the patient stated no. When asked if h e thought he had COVID-19 the patient said "absolutely not." Patient denies any hematuria, hematemesis coffee-ground emesis, bilious vomiting, melena hematochezia. Patient states he has not been taking his any of his medications over the last 2 days. Home Medications Medication Instructions Recorded Confirmed Type albuterol sulfate 90 mcg/actuation 2 puff INHALATION QID PRN 09/07/20 11/14/21 History aerosol inhaler (ProAir HFA) lisinopril 20 mg tablet 20 mg PO QAM 03/18/21 11/14/21 History atorvastatin 20 mg tablet 40 mg PO QAM #1 tab 04/12/21 11/14/21 Rx aspirin 81 mg tablet,delayed 81 mg PO QAM 05/24/21 11/14/21 History release indomethacin 75 mg 75 mg PO BID PRN #10 cap MDD 2 05/24/21 11/14/21 Rx capsule,extended release amoxicillin 875 mg-potassium 1 tab PO BID #20 tab 09/16/21 11/14/21 Rx clavulanate 125 mg tablet (Augmentin) clopidogrel 75 mg tablet 75 mg PO QAM 11/14/21 11/14/21 History dicyclomine 10 mg capsule 10 mg PO TID PRN 11/14/21 11/14/21 History Allergies Allergy/AdvReac Type Severity Reaction Status Date / Time IVORY SOAP Allergy Mild RASH Uncoded 11/14/21 14:56 Past Med/Surg History Medical History (Updated 11/14/21 @ 18:13 by Patricia E. Lynn, PA-C) Chronic obstructive pulmonary disease MILD- BREATHING STABLE- OCC AGGREVATION OF SYMPTOMS Degenerative disc disease CERVICAL GERD (gastroesophageal reflux disease) WELL CONTROLLED AND STABLE Hyperlipidemia Hypertension Osteoarthritis Surgical History H/O neck surgery 2017---CERVICAL normal ROM C5-7 History of appendectomy History of colonoscopy with polypectomy History of esophagogastroduodenoscopy (EGD) History of hand surgery right middle finger tip of finger removed History of surgery NERVE GRAFT LEFT HAND History of wisdom tooth extraction S/P left knee arthroscopy X3 Family History Other No family history of adverse response to anesthesia Social History Smoking Status: Never smoker Tobacco Type: Cigarettes Second Hand Exposure: No; Hx Alcohol Use: No Hx Substance Use: No Preferred Language: Djiboutian Communication Ability: Effective Insole Filler Required: No Beliefs That Will Affect Care: None Current Living Situation: Spouse current occupation: terminal press operator disability Feels Safe at Home: Yes Assistive Devices: None Review of Systems A total of 10 systems reviewed and were otherwise negative Physical Exam Vital Signs Vital Signs - 24 hr 11/14/21 13:58 11/14/21 14:15 11/14/21 14:31 Temperature 37.0 C Temperature Source Temporal Artery Scan Pulse Rate 106 H Pulse Rate [Apical] Pulse Rate from SpO2 Sensor Respiratory Rate 18 Blood Pressure 123/73 169/84 H Blood Pressure [Left Arm] Blood Pressure Mean 89 112 Blood Pressure Mean [Left Arm] Pulse Oximetry 90 92 Oxygen Delivery Method Room Air Room Air Oxygen Flow Rate Sepsis Recent Fever Within 48 Hours No Sepsis New/Unexplained Change in Mental Status No Sepsis Action Taken by Nursing No Action Required 11/14/21 14:32 11/14/21 14:40 11/14/21 14:50 Temperature Temperature Source Pulse Rate 105 H 100 H 104 H Pulse Rate [Apical] Pulse Rate from SpO2 Sensor 105 H 100 H 103 H Respiratory Rate 38 H 24 18 Blood Pressure Blood Pressure [Left Arm] Blood Pressure Mean Blood Pressure Mean [Left Arm] Pulse Oximetry 86 L 94 98 Oxygen Delivery Method Oxygen Flow Rate Sepsis Recent Fever Within 48 Hours Sepsis New/Unexplained Change in Mental Status Sepsis Action Taken by Nursing 11/14/21 15:00 11/14/21 15:41 11/14/21 17:00 Temperature Temperature Source Pulse Rate Pulse Rate [Apical] 101 H 90 Pulse Rate from SpO2 Sensor 106 H Respiratory Rate 23 12 Blood Pressure 129/67 Blood Pressure [Left Arm] 149/67 H 105/57 L Blood Pressure Mean 87 Blood Pressure Mean [Left Arm] 94 73 Pulse Oximetry 94 93 93 Oxygen Delivery Method Nasal Cannula Nasal Cannula Oxygen Flow Rate 2 2 Sepsis Recent Fever Within 48 Hours Sepsis New/Unexplained Change in Mental Status Sepsis Action Taken by Nursing Physical Exam GENERAL: He is oriented to person, place, and time. He appears well-developed and well-nourished. He does not appear distressed. HENT: Exam performed. - Head: Normocephalic and atraumatic. - Right Ear: External ear normal. No mastoid tenderness. - Left Ear: External ear normal. No mastoid tenderness. - Mouth/Throat: The oropharynx is clear and moist. No trismus in the jaw. No dental abscesses or uvula swelling. No oropharyngeal exudate or tonsillar abscesses. EYES: Conjunctivae and EOM are normal. Pupils are equal, round, and reactive to light. Right eye exhibits no discharge. Left eye exhibits no discharge. No scleral icterus. NECK: Normal range of motion. Neck supple. No JVD present. No spinous process tenderness present. No carotid bruit present. No rigidity. No tracheal deviation and normal range of motion present. No Brudzinski's sign and no Kernig's sign noted. CV: Normal rate, regular rhythm, normal heart sounds and intact distal pulses. There is no peripheral edema. Palpable radial pulses bue. PULM/CHEST: Expiratory wheezes bilaterally. - Chest Wall: He exhibits no tenderness. ABD: The abdomen is soft. Bowel sounds are normal. He has no distension. No mass is present. There is no tenderness. There is no rebound, no guarding, no Greene's sign and no tenderness at McBurney's point. Rovsig negative. MUSC/SKEL: Normal range of motion. There is no peripheral edema, tenderness or deformity. LYMPH: No cervical adenopathy. NEURO: He is alert and oriented to person, place, and time. He has normal strength. No cranial nerve deficit or sensory deficit. Coordination and gait normal. GCS eye subscore is 4. GCS verbal subscore is 5. GCS motor subscore is 6. Cerebellar tests wnl. SKIN: Skin is warm and dry. He is not diaphoretic. PSYCH: He has a normal mood and affect. Behavior is normal. Judgment and thought content normal. Course Course 1402: The patient was evaluated in room B11. A complete history and physical exam was performed Cardiac monitoring: An order was placed for continuous cardiac monitoring. The monitor shows a rate of 100 with sinus rhythm 1445: Patient became hypoxic on room air. Supplemental oxygen applied to the patient which improved his oxygen saturation. Patient does not wear oxygen normally at home. 1645: Vital signs stable on supplemental oxygen via nasal cannula. Labs are within normal limits. Imaging shows no PE. Patient is COVID-19 positive. Given his hypoxia and positive COVID status the patient will be admitted to the [facility] team Dr. Gonzalez notified Administered Medications Discontinued Medications Acetaminophen (Acetaminophen 325 Mg Tab) 650 mg PO NOW STA Stop: 11/14/21 16:09 Last Admin: 11/14/21 16:37 Dose: 650 mg Documented by: [id number] Albuterol (Albut/Ipratrop 3mg/0.5mg Neb 3 Ml Vial) 3 ml NEB NOW STA; Protocol Stop: 11/14/21 14:18 Last Admin: 11/14/21 14:44 Dose: 3 ml Documented by: [id number] Ioversol (Optiray 320 125ml) 120 ml IV ONCE ONE Stop: 11/14/21 15:34 Last Admin: 11/14/21 15:34 Dose: 120 ml Documented by: [id number] Methylprednisolone (Methylprednisolone 125 Mg/2 Ml Vial) 125 mg IV NOW STA Stop: 11/14/21 14:18 Last Admin: 11/14/21 14:44 Dose: 125 mg Documented by: [id number] Ondansetron HCl (Ondansetron Inj 2 Mg/Ml 2 Ml Vial) 4 mg IV NOW ONE Stop: 11/14/21 17:26 Last Admin: 11/14/21 17:34 Dose: 4 mg Documented by: [id number] Critical Care Time Critical Care Time: Yes Total Critical Care Time: 60 I have personally spent greater than 60 minutes of critical care time in the direct management of this patient. This includes bedside care, interpretation of diagnostic studies, and testing, discussion with consultants, patient, and family members, and other required patient management activities. This 60 minutes is in excess of all separately billable procedures. Medical Decision Making Laboratory Data Result diagrams: 11/14/21 14:27 11/14/21 14:27 Lab Results 11/14/21 11/14/21 11/14/21 Range/Units 14:27 14:27 14:27 WBC 6.65 (4.8-10.8) K/uL RBC 4.44 L (4.7-6.1) M/uL Hgb 14.3 (14.0-18.0) g/dL Hct 41.6 L (42-52) % MCV 93.7 (80-100) fL MCH 32.2 (25-34) pg MCHC 34.4 (32-36) g/dL RDW Std Deviation 48.4 H (36.4-46.3) fL RDW Coeff of Lexi 14.1 (11.5-14.5) % Plt Count 169 (130-400) K/uL MPV 10.7 H (7.4-10.4) fL Immature Gran % (Auto) 0.2 % Neut % (Auto) 67.8 % Lymph % (Auto) 19.4 % Fountain % (Auto) 12.6 % Eos % (Auto) 0.0 % Baso % (Auto) 0.0 % Neut # (Auto) 4.51 (1.4-6.5) K/uL Lymph # (Auto) 1.29 (1.2-3.4) K/uL Fountain # (Auto) 0.84 H (0.11-0.59) K/uL Eos # (Auto) 0.00 (0-0.5) K/uL Baso # (Auto) 0.00 (0-0.2) K/uL Immature Gran # (Auto) 0.01 (0.00-0.02) K/uL PT 10.3 (9.0-12.0) Seconds INR 1.0 (0.9-1.1) APTT 29.9 (21.0-31.0) Seconds PTT Ratio 1.1 VBG pH 7.42 H (7.36-7.41) VBG pCO2 40 (38-50) mmHg VBG pO2 18 mmHg VBG HCO3 25 mmol/L VBG O2 Saturation < 60.0 % VBG Base Excess 0.9 mEq/L Barometric Pressure 732.8 mm/Hg Sodium (136-145) mmol/L Potassium (3.5-5.1) mmol/L Chloride (98-107) mmol/L Carbon Dioxide (21-32) mmol/L Anion Gap (3-11) BUN (6-23) mg/dl Creatinine (0.6-1.4) mg/dl Est Cr Clr Drug Dosing ml/min Est GFR ( Amer) ml/min Est GFR (Non-Af Amer) ml/min BUN/Creatinine Ratio (10-20) Glucose (70-99) mg/dl Calcium (8.5-10.1) mg/dl Troponin I (0-0.04) ng/ml C-Reactive Protein (0-5.00) mg/dl Lipase (11-82) U/L SARS-CoV-2 (PCR) (Negative) Influenza Type A (PCR) (Neg) Influenza Type B (PCR) (Neg) RSV (RT-PCR) (Neg) 11/14/21 11/14/21 11/14/21 Range/Units 14:27 14:27 Unknown WBC (4.8-10.8) K/uL RBC (4.7-6.1) M/uL Hgb (14.0-18.0) g/dL Hct (42-52) % MCV (80-100) fL MCH (25-34) pg MCHC (32-36) g/dL RDW Std Deviation (36.4-46.3) fL RDW Coeff of Lexi (11.5-14.5) % Plt Count (130-400) K/uL MPV (7.4-10.4) fL Immature Gran % (Auto) % Neut % (Auto) % Lymph % (Auto) % Fountain % (Auto) % Eos % (Auto) % Baso % (Auto) % Neut # (Auto) (1.4-6.5) K/uL Lymph # (Auto) (1.2-3.4) K/uL Fountain # (Auto) (0.11-0.59) K/uL Eos # (Auto) (0-0.5) K/uL Baso # (Auto) (0-0.2) K/uL Immature Gran # (Auto) (0.00-0.02) K/uL PT (9.0-12.0) Seconds INR (0.9-1.1) APTT (21.0-31.0) Seconds PTT Ratio VBG pH (7.36-7.41) VBG pCO2 (38-50) mmHg VBG pO2 mmHg VBG HCO3 mmol/L VBG O2 Saturation % VBG Base Excess mEq/L Barometric Pressure mm/Hg Sodium 131 L (136-145) mmol/L Potassium 4.2 (3.5-5.1) mmol/L Chloride 98 (98-107) mmol/L Carbon Dioxide 25 (21-32) mmol/L Anion Gap 8 (3-11) BUN 21 (6-23) mg/dl Creatinine 1.22 (0.6-1.4) mg/dl Est Cr Clr Drug Dosing 65.8 ml/min Est GFR ( Amer) 71.7 ml/min Est GFR (Non-Af Amer) 61.8 ml/min BUN/Creatinine Ratio 17.2 (10-20) Glucose 100 H (70-99) mg/dl Calcium 8.4 L (8.5-10.1) mg/dl Troponin I < 0.03 (0-0.04) ng/ml C-Reactive Protein 13.40 H (0-5.00) mg/dl Lipase 42 (11-82) U/L SARS-CoV-2 (PCR) POSITIVE A* (Negative) Influenza Type A (PCR) Negative (Neg) Influenza Type B (PCR) Negative (Neg) RSV (RT-PCR) Negative (Neg) Imaging Data Radiologist's Impression: Chest X-Ray 11/14/21 14:15 XR chest 1V portable CLINICAL HISTORY: Chest Pain. COMPARISON STUDY: 06/24/2020 TECHNIQUE: 1 view of the chest FINDINGS: Single frontal view of the chest demonstrates the cardiomediastinal silhouette to be within normal limits. There is indistinctness of the central hilar vessels with the findings suspicious for mild central vascular congestion. No gross interstitial edema is seen. There is no evidence for pleural effusion. No confluent alveolar opacities are seen. There is no acute osseous pathology. IMPRESSION: Evidence for mild central vascular congestion suspicious for early cardiac decompensation. ACT 112: Negative or not required by law. Electronically signed by: Solomon Rivera M.D. 11/14/2021 3:18 PM Chest CTA 11/14/21 14:54 CT angio chest PE protocol CLINICAL HISTORY: Syncopal episode. Shortness of breath. Positive Covid. Evaluate for pulmonary embolus COMPARISON STUDY: Portable chest from 11/14/2020 CT DOSE: 1503.90 mGy.cm TECHNIQUE: CT Angio of the chest was performed.followed by image post processing with coronal, and sagittal MIP reformats. Contrast Volume: Optiray 320, 120 ml FINDINGS: Vasculature: There is homogeneous perfusion of the pulmonary vasculature bilaterally. No intraluminal filling defects or evidence for pulmonary embolus is seen. Airway: The airway is clear. No endobronchial lesion is identified. Lungs: Centrilobular emphysematous changes are present particularly involving the upper lobes bilaterally. Diffuse interstitial fibrotic changes are present as well accounting for the prominence of the interstitial markings seen on the chest radiograph. There is no evidence for vascular congestion. Subpleural blebs and bullae are seen involving the upper lobes. The lungs are otherwise clear of groundglass opacities, confluent alveolar opacities, air bronchograms or pulmonary nodules. Pleura: There is no evidence for pleural effusion. There is no evidence for pneumothorax. Mediastinum: There is no evidence for pathologic adenopathy. The heart size is within normal limits. Coronary artery calcifications present. The thoracic aorta is within normal limits. There is no evidence for pericardial effusion. Upper abdomen:The adrenal glands are normal bilaterally. There is small hiatal hernia. There is evidence for mild hepatomegaly with fatty infiltration of the liver. Osseous structures: There is no acute osseous pathology. Impression: 1. No CTA evidence for pulmonary embolus. 2. Centrilobular emphysematous changes with extensive interstitial fibrotic changes accounting for the prominence of the interstitial markings seen radiogr aphically. There is no evidence for vascular congestion. 3. There are no groundglass opacities, alveolar opacities or air bronchograms. 4. Mild coronary artery calcification. 5. Small hiatal hernia and fatty infiltration of enlarged liver. ACT 112: Negative or not required by law. Electronically signed by: Solomon Rivera M.D. 11/14/2021 4:[address] 11/14/21 14:55 CT head/brain wo con CLINICAL HISTORY: syncope COMPARISON STUDY: No previous studies for comparison. CT DOSE: TECHNIQUE: Standard CT of the Brain was performed without IV contrast. A dose lowering technique was utilized adhering to the principles of ALARA. FINDINGS: Extraaxial space: There is no evidence for subdural hematoma. There are no extra-axial fluid collections. Ventricles and cisterns: The ventricles are normal in size and configuration. There is no evidence for midline shift or mass effect. Parenchyma: There is no subarachnoid or intraparenchymal hemorrhage. There is no evidence for an acute infarct or cerebral edema. There is homogeneous attenuation of the brain parenchyma. There are no gross mass lesions. Osseous structures: There is no evidence for an acute fracture. The visualized paranasal sinuses are clear. The mastoid air cells are clear bilaterally. Soft tissues: There is no evidence for focal soft tissue swelling. IMPRESSION: No acute intracerebral pathology. ACT 112: Negative or not required by law. Electronically signed by: Solomon Rivera M.D. 11/14/2021 4:00 PM ECG Data Indication: + SOB/dyspnea Rate (beats per minute): 100 Rhythm: + normal sinus ECG Intervals/blocks: + Normal QRS, + Normal NH and + Normal QT-c ECG ST segments: + Normal ST segments [facility] Narrative 1402: The patient was evaluated in room B11. A complete history and physical exam was performed Cardiac monitoring: An order was placed for continuous cardiac monitoring. The monitor shows a rate of 100 with sinus rhythm 1445: Patient became hypoxic on room air. Supplemental oxygen applied to the patient which improved his oxygen saturation. Patient does not wear oxygen normally at home. 1645: Vital signs stable on supplemental oxygen via nasal cannula. Labs are within normal limits. Imaging shows no PE. Patient is COVID-19 positive. Given his hypoxia and positive COVID status the patient will be admitted to the [facility] team Dr. Gonzalez notified Impression & Plan Hypoxia, COVID-19 Discharge Plan Visit Data Chief Complaint: Syncope Stated Complaint: PASSED OUT 2X TODAY Discharge Problem: Hypoxia, COVID-19 Forms Stand Alone Forms: My [facility] [employer] Prescriptions Prescriptions: No Action lisinopril 20 mg tablet 20 mg PO QAM RF: 0 indomethacin 75 mg capsule, extended release 75 mg PO BID MDD 2 PRN (Reason: prn knee/wrist pain) Qty: 10 RF: 0 albuterol sulfate [ProAir HFA] 90 mcg/actuation Hfa Aerosol Inhaler 2 puff INHALATION QID PRN (Reason: SHORT OF BREATH) RF: 0 amoxicillin-pot clavulanate [Augmentin] 875-125 mg tablet 1 tab PO BID Qty: 20 RF: 0 atorvastatin 20 mg Tablet 40 mg PO QAM Qty: 1 RF: 3 aspirin 81 mg Tablet,Delayed Release (Dr/Ec) 81 mg PO QAM RF: 0 dicyclomine 10 mg capsule 10 mg PO TID PRN (Reason: Pain) RF: 0 clopidogrel 75 mg tablet 75 mg PO QAM RF: 0 Referrals Referrals: Mariaelena Carpenter PA-C [Primary Care Provider] -
[2021-11-14 14:41] LABS: Hematocrit (blood only) 41.6 % (42-52); Hemoglobin 14.3 g/dL (14.0-18.0); Immature Granulocytes # (auto) 0.01 K/uL (0.00-0.02); Immature Granulocytes % (auto) 0.2 %; Lymphocytes # (auto) 1.29 K/uL (1.2-3.4); Lymphocytes % (auto) 19.4 %; Mean Corpuscular Hemoglobin 32.2 pg (25-34); Mean Corpuscular Hgb Conc 34.4 g/dL (32-36); Mean Corpuscular Volume 93.7 fL (80-100); Mean Platelet Volume 10.7 fL (7.4-10.4); Monocytes # (auto) 0.84 K/uL (0.11-0.59); Monocytes % (auto) 12.6 %; Neutrophils # (auto) 4.51 K/uL (1.4-6.5); Neutrophils % (auto) 67.8 %; Platelet Count 169 K/uL (130-400); RDW Coefficient of Variation 14.1 % (11.5-14.5); RDW Standard Deviation 48.4 fL (36.4-46.3); Red Blood Count 4.44 M/uL (4.7-6.1); White Blood Count 6.65 K/uL (4.8-10.8)
[2021-11-14 14:43] LABS: Base Excess VBG 0.9 mEq/L; HCO3 VBG 25 mmol/L; Oxygen Saturation VBG < 60.0 %; PCO2 VBG 40 mmHg (38-50); PO2 VBG 18 mmHg; pH VBG 7.42 (7.36-7.41)
[2021-11-14 14:59] LABS: Anion Gap 8 (3-11); BUN Creatinine Ratio 17.2 (10-20); Blood Urea Nitrogen 21 mg/dl (6-23); Calcium 8.4 mg/dl (8.5-10.1); Carbon Dioxide 25 mmol/L (21-32); Chloride 98 mmol/L (98-107); Creatinine Clr Calc Pharmacy 65.8 ml/min; Est GFR (African American) 71.7 ml/min; Est GFR (Non-African American) 61.8 ml/min; Glucose 100 mg/dl (70-99); Lipase 42 U/L (11-82); Partial Thromboplastin Ratio 1.1; Partial Thromboplastin Time 29.9 Seconds (21.0-31.0); Potassium 4.2 mmol/L (3.5-5.1); Prothrombin Time 10.3 Seconds (9.0-12.0); Sodium 131 mmol/L (136-145)
[2021-11-14 15:02] LABS: Troponin I < 0.03 ng/ml (0-0.04)
--- NOTE | 2021-11-14 15:19 | XRay Report ---
XR chest 1V portable CLINICAL HISTORY: Chest Pain. COMPARISON STUDY: 06/24/2020 TECHNIQUE: 1 view of the chest FINDINGS: Single frontal view of the chest demonstrates the cardiomediastinal silhouette to be within normal li mits. There is indistinctness of the central hilar vessels with the findings suspicious for mild cent ral vascular congestion. No gross interstitial edema is seen. There is no evidence for pleural effusi on. No confluent alveolar opacities are seen. There is no acute osseous pathology. IMPRESSION: Evidence for mild central vascular congestion suspicious for early cardiac decompensation . ACT 112: Negative or not required by law. Electronically signed by: Solomon Rivera M.D. 11/14/2021 3:18 PM
[2021-11-14 15:26] LABS: Influenza A virus by PCR Negative (Neg); Influenza B virus by PCR Negative (Neg); RSV by PCR Negative (Neg)
[2021-11-14] MEDS ORDERED: OPTIRAY 320 125ml IV ONE (15:33)
[2021-11-14 15:54] LABS: SARS CoV2 RNA(COVID-19) InHosp POSITIVE (Negative)
--- NOTE | 2021-11-14 16:01 | CT Scan Report ---
CT head/brain wo con CLINICAL HISTORY: syncope COMPARISON STUDY: No previous studies for comparison. CT DOSE: TECHNIQUE: Standard CT of the Brain was performed without IV contrast. A dose lowering technique was utilized adhering to the principles of ALARA. FINDINGS: Extraaxial space: There is no evidence for subdural hematoma. There are no extra-axial fluid collecti ons. Ventricles and cisterns: The ventricles are normal in size and configuration. There is no evidence f or midline shift or mass effect. Parenchyma: There is no subarachnoid or intraparenchymal hemorrhage. There is no evidence for an acu te infarct or cerebral edema. There is homogeneous attenuation of the brain parenchyma. There are no gross mass lesions. Osseous structures: There is no evidence for an acute fracture. The visualized paranasal sinuses are clear. The mastoid air cells are clear bilaterally. Soft tissues: There is no evidence for focal soft tissue swelling. IMPRESSION: No acute intracerebral pathology. ACT 112: Negative or not required by law. Electronically signed by: Solomon Rivera M.D. 11/14/2021 4:00 PM
[2021-11-14] MEDS ORDERED: ACETAMINOPHEN 325 MG TAB PO STA (16:08)
--- NOTE | 2021-11-14 16:13 | CT Scan Report ---
CT angio chest PE protocol CLINICAL HISTORY: Syncopal episode. Shortness of breath. Positive Covid. Evaluate for pulmonary embol us COMPARISON STUDY: Portable chest from 11/14/2020 CT DOSE: 1503.90 mGy.cm TECHNIQUE: CT Angio of the chest was performed.followed by image post processing with coronal, and s agittal MIP reformats. Contrast Volume: Optiray 320, 120 ml FINDINGS: Vasculature: There is homogeneous perfusion of the pulmonary vasculature bilaterally. No intraluminal filling defects or evidence for pulmonary embolus is seen. Airway: The airway is clear. No endobronchial lesion is identified. Lungs: Centrilobular emphysematous changes are present particularly involving the upper lobes bilater ally. Diffuse interstitial fibrotic changes are present as well accounting for the prominence of the interstitial markings seen on the chest radiograph. There is no evidence for vascular congestion. Sub pleural blebs and bullae are seen involving the upper lobes. The lungs are otherwise clear of groundg lass opacities, confluent alveolar opacities, air bronchograms or pulmonary nodules. Pleura: There is no evidence for pleural effusion. There is no evidence for pneumothorax. Mediastinum: There is no evidence for pathologic adenopathy. The heart size is within normal limits. Coronary artery calcifications present. The thoracic aorta is within normal limits. There is no evide nce for pericardial effusion. Upper abdomen:The adrenal glands are normal bilaterally. There is small hiatal hernia. There is evide nce for mild hepatomegaly with fatty infiltration of the liver. Osseous structures: There is no acute osseous pathology. Impression: 1. No CTA evidence for pulmonary embolus. 2. Centrilobular emphysematous changes with extensive interstitial fibrotic changes accounting for th e prominence of the interstitial markings seen radiographically. There is no evidence for vascular co ngestion. 3. There are no groundglass opacities, alveolar opacities or air bronchograms. 4. Mild coronary artery calcification. 5. Small hiatal hernia and fatty infiltration of enlarged liver. ACT 112: Negative or not required by law. Electronically signed by: Solomon Rivera M.D. 11/14/2021 4:11 PM
--- NOTE | 2021-11-14 16:44 | History & Physical Report ---
Date of Service November 14, 2021 Assessment & Plan (1) Acute exacerbation of chronic obstructive pulmonary disease (COPD): Plan: -Acute on chronic. Patient received a Medrol pack and DuoNeb in the ED and was placed on 2 L nasal cannula and is now satting in mid 90s. Patient is not on home oxygen. -Exacerbation likely due to medication noncompliance rather than COVID-[address] findings are more consistent with chronic COPD, do not reveal pulmonary changes that could be attributed to COVID-19 infection. Patient is prescribed inhalers at home, however did not take them over the past 2 days despite shortness of breath because he states did not have the urge to. -We will begin Decadron 6 mg twice daily starting tomorrow, as patient has already received Medrol pack in the ED. -DuoNebs ordered every 6 as needed. (2) Hypoxia: Plan: -As above. (3) COVID-19: Plan: -Patient tested positive in ED. He is not vaccinated. Illness day #2. -Patient's oxygen saturation was in the low 80s on room air in the ED. Patient received a Medrol pack and DuoNeb in the ED and was placed on 2 L nasal cannula and is now satting in mid 90s. -Patient qualifies for remdesivir treatment based on days of symptoms as well as oxygen requirement and would like to pursue remdesivir treatment. -Procalcitonin and CRP ordered, pending. -We will begin Decadron 6 mg twice daily starting tomorrow, as patient has already received Medrol pack in the ED. (4) Syncope: Plan: -Two syncopal episodes at home upon standing from supine position. Head CT negative for any acute process. -Likely due to orthostasis due to volume depletion from illness, patient reports poor PO intake. (5) CAD (coronary artery disease): Plan: -Continue lisinopril, statin, clopidogrel, ASA, isosorbide mononitrate -Patient is not complaining of chest pain at this time, troponin within normal limits. (6) Hyperlipidemia: Plan: - Continue statin as above. (7) Hypertension: Plan: - Continue lisinopril as above. (8) GERD (gastroesophageal reflux disease): Plan: -Patient complaining of diffuse abdominal pain, abdomen is distended on exam. According to previous notes, this seems to be a chronic condition. -Continue PPI and dicyclomine. (9) DVT prophylaxis: Plan: -SCDs ordered -Lovenox 40 mg SC BID History of Present Illness Chief Complaint: Syncopal events with hypoxia Primary Care Provider: Mariaelena Carpenter PA-C 66-year-old male with history of COPD, CAD, HTN, hyperlipidemia, and GERD presents emergency department for syncope. Patient states that on Monday, he got out of bed when he passed out for an unknown amount of time. His came into the room shortly after and found him lying on his side. Also that day he began experiencing body aches, shortness of breath, nonproductive cough, and nausea. Monday he was at his living room and stood up to go to the bathroom when he passed out again, this time his witnessed it and said he fell onto his side, did not hit his head, and was out for 5 to 10 minutes. Patient is unvaccinated for COVID-19, on Monday began experiencing fatigue, fever chills, nonproductive cough, myalgias, and decreased appetite. He has been struggling with po intake, endorsing only liquids since Monday, about 3-4 8-oz bottles of water, and some orange juice however that gave him an episode of diarrhea. He states he is overall uncomfortable and achy, but specifically complains of generalized abdominal pain. Patient's last bowel movement was today and he reports was normal, no blood no melanotic stool, denies vomiting or constipation. Patient states he has not been taking his any of his medications over the last 2 days because "he has not felt the urge to". Allergies Allergy/AdvReac Type Severity Reaction Status Date / Time IVORY SOAP Allergy Mild RASH Uncoded 11/14/21 14:56 Home Medications Medication Instructions Recorded Confirmed Type albuterol sulfate 90 mcg/actuation 2 puff INHALATION QID PRN 09/07/20 11/14/21 History aerosol inhaler (ProAir HFA) lisinopril 20 mg tablet 20 mg PO QAM 03/18/21 11/14/21 History atorvastatin 20 mg tablet 40 mg PO QAM #1 tab 04/12/21 11/14/21 Rx aspirin 81 mg tablet,delayed 81 mg PO QAM 05/24/21 11/14/21 History release indomethacin 75 mg 75 mg PO BID PRN #10 cap MDD 2 05/24/21 11/14/21 Rx capsule,extended release clopidogrel 75 mg tablet 75 mg PO QAM 11/14/21 11/14/21 History dicyclomine 10 mg capsule 10 mg PO TID PRN 11/14/21 11/14/21 History fluticasone 250 mcg-salmeterol 50 1 inh INHALATION BID 11/14/21 11/14/21 History mcg/dose blistr powdr for inhalation (Advair Diskus) Past Med/Surg History Medical History Chronic obstructive pulmonary disease MILD- BREATHING STABLE- OCC AGGREVATION OF SYMPTOMS Degenerative disc disease CERVICAL GERD (gastroesophageal reflux disease) WELL CONTROLLED AND STABLE Hyperlipidemia Hypertension Osteoarthritis Surgical History H/O neck surgery 2017---CERVICAL normal ROM C5-7 History of appendectomy History of colonoscopy with polypectomy History of esophagogastroduodenoscopy (EGD) History of hand surgery right middle finger tip of finger removed History of surgery NERVE GRAFT LEFT HAND History of wisdom tooth extraction S/P left knee arthroscopy X3 Family History Other No family history of adverse response to anesthesia Social History Smoking Status: Former smoker Tobacco Type: Cigarettes Second Hand Exposure: No; Hx Alcohol Use: Yes Alcohol type: beer Hx Substance Use: No Preferred Language: Guatemalan Communication Ability: Effective 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 Eyes: No diplopia, no worsening or blurred vision ENT: normal hearing, no trouble swallowing Respiratory: Endorses noproductive cough; Denies sputum, dyspnea at rest or on exertion Cardiovascular: No chest pain, tightness or palpitations Abdomen: Reports diffuse abdominal pain and nausea and diarrhea; No vomiting or constipation Musculoskeletal: No joint pain, calf pain, swelling Neurologic: No weakness, numbness/tingling, or balance problems Psychiatric: No anxiety or depression Skin: No rash or itch Physical Exam Physical Exam: Physical exam: General: awake, alert, no apparent distress on 2L NC Head: Normocephalic, atraumatic ENT: PERRL, EOMI, no pharyngeal exudate, mucous membranes moist Chest: Clear to auscultation, on 2L NC, no adventitious breath sounds Cardiac: Regular rate and rhythm, no murmur, no JVD, normal peripheral pulses, good capillary refill Abdominal: NABS x 4 quadrants, generally tender to palpation throughout and mildly distended, no rebound, guarding or tenderness Extremities: Normal inspection, no peripheral edema or erythema, calfs nontender to palpation Psych: Normal mood and affect Neuro: AAO x 3, strength intact bilaterally and rated 5/5, no motor deficits, speech is clear, no peripheral sensory deficits Skin: no rash or erythema Results & Data Results & Data ([facility]) Vital Signs (Past 12 Hours) Vital Signs Temp Pulse Pulse Resp BP BP Pulse Ox 11/14/21 15:41 101 H 23 149/67 H 93 11/14/21 15:00 129/67 94 11/14/21 14:50 104 H 18 98 11/14/21 14:40 100 H 24 94 11/14/21 14:32 105 H 38 H 86 L 11/14/21 14:31 169/84 H 11/14/21 14:15 92 11/14/21 13:58 37.0 C 106 H 18 123/73 90 Laboratory Results Abnormal lab results 11/14/21 11/14/21 11/14/21 Range/Units 14:27 14:27 14:27 RBC 4.44 L (4.7-6.1) M/uL Hct 41.6 L (42-52) % RDW Std Deviation 48.4 H (36.4-46.3) fL MPV 10.7 H (7.4-10.4) fL [place] # (Auto) 0.84 H (0.11-0.59) K/uL VBG pH 7.42 H (7.36-7.41) Sodium 131 L (136-145) mmol/L Glucose 100 H (70-99) mg/dl Calcium 8.4 L (8.5-10.1) mg/dl C-Reactive Protein (0-5.00) mg/dl SARS-CoV-2 (PCR) (Negative) 11/14/21 11/14/21 Range/Units 14:27 Unknown RBC (4.7-6.1) M/uL Hct (42-52) % RDW Std Deviation (36.4-46.3) fL MPV (7.4-10.4) fL [place] # (Auto) (0.11-0.59) K/uL VBG pH (7.36-7.41) Sodium (136-145) mmol/L Glucose (70-99) mg/dl Calcium (8.5-10.1) mg/dl C-Reactive Protein 13.40 H (0-5.00) mg/dl SARS-CoV-2 (PCR) POSITIVE A* (Negative) Diagnostic Findings Chest X-Ray 11/14/21 14:15 XR chest 1V portable CLINICAL HISTORY: Chest Pain. COMPARISON STUDY: 06/24/2020 TECHNIQUE: 1 view of the chest FINDINGS: Single frontal view of the chest demonstrates the cardiomediastinal silhouette to be within normal limits. There is indistinctness of the central hilar vessels with the findings suspicious for mild central vascular congestion. No gross interstitial edema is seen. There is no evidence for pleural effusion. No confluent alveolar opacities are seen. There is no acute osseous pathology. IMPRESSION: Evidence for mild central vascular congestion suspicious for early cardiac decompensation. ACT 112: Negative or not required by law. Electronically signed by: Solomon Rivera M.D. 11/14/2021 3:18 PM Chest CTA 11/14/21 14:54 CT angio chest PE protocol CLINICAL HISTORY: Syncopal episode. Shortness of breath. Positive Covid. Evaluate for pulmonary embolus COMPARISON STUDY: Portable chest from 11/14/2020 CT DOSE: 1503.90 mGy.cm TECHNIQUE: CT Angio of the chest was performed.followed by image post processing with coronal, and sagittal MIP reformats. Contrast Volume: Optiray 320, 120 ml FINDINGS: Vasculature: There is homogeneous perfusion of the pulmonary vasculature bilaterally. No intraluminal filling defects or evidence for pulmonary embolus is seen. Airway: The airway is clear. No endobronchial lesion is identified. Lungs: Centrilobular emphysematous changes are present particularly involving the upper lobes bilaterally. Diffuse interstitial fibrotic changes are present as well accounting for the prominence of the interstitial markings seen on the chest radiograph. There is no evidence for vascular congestion. Subpleural blebs and bullae are seen involving the upper lobes. The lungs are otherwise clear of groundglass opacities, confluent alveolar opacities, air bronchograms or pulmonary nodules. Pleura: There is no evidence for pleural effusion. There is no evidence for pneumothorax. Mediastinum: There is no evidence for pathologic adenopathy. The heart size is within normal limits. Coronary artery calcifications present. The thoracic aorta is within normal limits. There is no evidence for pericardial effusion. Upper abdomen:The adrenal glands are normal bilaterally. There is small hiatal hernia. There is evidence for mild hepatomegaly with fatty infiltration of the liver. Osseous structures: There is no acute osseous pathology. Impression: 1. No CTA evidence for pulmonary embolus. 2. Centrilobular emphysematous changes with extensive interstitial fibrotic changes accounting for the prominence of the interstitial markings seen radiographically. There is no evidence for vascular congestion. 3. There are no groundglass opacities, alveolar opacities or air bronchograms. 4. Mild coronary artery calcification. 5. Small hiatal hernia and fatty infiltration of enlarged liver. ACT 112: Negative or not required by law. Electronically signed by: Solomon Rivera M.D. 11/14/2021 4:[address] 11/14/21 14:55 CT head/brain wo con CLINICAL HISTORY: syncope COMPARISON STUDY: No previous studies for comparison. CT DOSE: TECHNIQUE: Standard CT of the Brain was performed without IV contrast. A dose lowering technique was utilized adhering to the principles of ALARA. FINDINGS: Extraaxial space: There is no evidence for subdural hematoma. There are no extra-axial fluid collections. Ventricles and cisterns: The ventricles are normal in size and configuration. There is no evidence for midline shift or mass effect. Parenchyma: There is no subarachnoid or intraparenchymal hemorrhage. There is no evidence for an acute infarct or cerebral edema. There is homogeneous attenuation of the brain parenchyma. There are no gross mass lesions. Osseous structures: There is no evidence for an acute fracture. The visualized paranasal sinuses are clear. The mastoid air cells are clear bilaterally. Soft tissues: There is no evidence for focal soft tissue swelling. IMPRESSION: No acute intracerebral pathology. ACT 112: Negative or not required by law. Electronically signed by: Solomon Rivera M.D. 11/14/2021 4:00 PM Supervising Physician Co-Signing Physician Notes I personally saw and examined the patient. I verified all mahan points and agree with Patricia Lynn PA-C with the following exceptions and/or additions: 66 year old male who presents to the ER with syncope, shortness of breath, fatigue, cough and nausea. Started on Monday. O/E No respiratory distress, speaking in full sentences, Reduced breath sounds throughout, no wheezing. HS1+2, no murmurs, Abdo SNT, no pedal edema. A/P Syncope - monitor on telemetry for arrythmia but suspect vasovagal in setting of acute illness. Continue lisinopril but monitor BP closely. Consider orthostatics. COVID-19 - Unvaccinated. Day three of illness. Dexamethasone 6mg IV BID (increased dose to cover for COPD exacerbation). Remdesivir. Does not meet criteria for baricitinib based on current O2 requirement. Hypoxia - without respiratory failure, Aim O2 sats 88-92%. COPD exacerbation - no wheezing on my exam but subjective improvement with duonebs. Increased dexamethasone dose as above. Continue his regular Advair inhaler. VTE Prophylaxis - although current NIH guidelines call for d-dimer testing and potentially full dose anticoagulation patient already on aspirin, clopidogrel and likely short stay therefore will use Lovenox 40mg SQ daily PG Care Time/CCT Total # of Minutes Spent Total Time Spent with Patient: Total time spent is greater than 50% in coordination of care (as documented) at patient's floor/unit and/or counseling patient: Coding Level of Care Code 37688 Initial Inpt Care Lvl 3 Diagnoses CAD (coronary artery disease) I25.10 COVID-19 U07.1 GERD (gastroesophageal reflux disease) K21.9 Hypoxia R09.02 Syncope R55 DVT prophylaxis Z29.9 Hyperlipidemia E78.5 Hypertension I10 Acute exacerbation of chronic obstructive pulmonary disease (COPD) J44.1
[2021-11-14] MEDS ORDERED: ONDANSETRON INJ 2 MG/ML 2 ML VIAL IV ONE (17:25)
[2021-11-14] MEDS ORDERED: ALBUT/IPRATROP 3MG/0.5MG NEB 3 ML VIAL NEB PRN (17:30)
[2021-11-14] MEDS ORDERED: REMDESIVIR 200 MG in SODIUM CHLORIDE 0.9% 210 ML IV ONE (18:30)
[2021-11-14] MEDS ORDERED: ACETAMINOPHEN 325 MG TAB PO PRN (20:11)
[2021-11-14] MEDS ORDERED: INDOMETHACIN EXTENDED REL 75 MG CAPCR PO PRN (20:11)
[2021-11-14] MEDS ORDERED: POLYETHYLENE (MIRALAX) 17 GM PACK PO PRN (20:11)
[2021-11-14] MEDS ORDERED: DICYCLOMINE HCL 10 MG CAP PO PRN (20:11)
[2021-11-14] MEDS ORDERED: ALBUTEROL HFA 8 GM INHALER INH PRN (20:11)
[2021-11-14] MEDS ORDERED: ONDANSETRON INJ 2 MG/ML 2 ML VIAL IV PRN (20:11)
[2021-11-14] MEDS ORDERED: PNEUMOCOCCAL POLYSACCHARIDES 25 MCG/0.5 ML VIAL/SYR IM ONE (20:31)
[2021-11-14] MEDS: SODIUM CHLORIDE 0.9% 10ML FLUSH IV SCH (20:39)
[2021-11-14] MEDS: ASPIRIN 81 MG ECTAB PO SCH (21:26)
[2021-11-14] MEDS: ATORVASTATIN 40 MG TAB PO SCH (21:26)
[2021-11-14] MEDS: lisinopril 20 MG TAB PO SCH (21:27)
[2021-11-14] MEDS: ENOXAPARIN INJ 40 MG/0.4 ML SYR SQ SCH (21:27)
[2021-11-14] MEDS: CLOPIDOGREL BISULFATE 75 MG TAB PO SCH (21:27)
[2021-11-15] MEDS: ALBUT/IPRATROP 3MG/0.5MG NEB 3 ML VIAL NEB SCH ×4 (07:23→19:19)
[2021-11-15 07:39] LABS: BUN Creatinine Ratio 26.2 (10-20); Calcium 8.2 mg/dl (8.5-10.1); Creatinine Clr Calc Pharmacy 78.2 ml/min; Est GFR (African American) 87.9 ml/min; Est GFR (Non-African American) 75.9 ml/min
[2021-11-15] MEDS: FLUTICASONE/VILANTEROL 200/25MCG 14 PUFFS/INHALER INH SCH (08:02)
[2021-11-15] MEDS: dexAMETHasone 6 MG in SYRINGE 0 ML IV SCH ×2 (08:02→20:32)
[2021-11-15] MEDS: ASPIRIN 81 MG ECTAB PO SCH (08:03)
[2021-11-15] MEDS: CLOPIDOGREL BISULFATE 75 MG TAB PO SCH (08:03)
[2021-11-15] MEDS: ATORVASTATIN 40 MG TAB PO SCH (08:03)
[2021-11-15] MEDS: lisinopril 20 MG TAB PO SCH (08:03)
--- NOTE | 2021-11-15 08:42 | Electrocardiogram Report ---
Test Reason : Blood Pressure : / mmHG Vent. Rate : 100 BPM Atrial Rate : 100 BPM P-R Int : 146 ms QRS Dur : 080 ms QT Int : 324 ms P-R-T Axes : 065 028 046 degrees QTc Int : 417 ms Normal sinus rhythm Diffuse Minor Nonspecific ST abnormality Abnormal ECG When compared with ECG of 16-SEP-2021 15:09, Minor Nonspecific ST abnormality now present Confirmed by Deni Campos ([id number]) on 11/15/2021 8:42:33 AM Referred By: REFERRED SELF Confirmed By:Deni Campos
[2021-11-15 13:41] LABS: Albumin Level 3.6 gm/dl (3.4-5.0); Bilirubin Direct 0.2 mg/dl (0-0.2); Bilirubin,Total 0.9 mg/dl (0.2-1.0); Total Protein 6.5 gm/dl (6.0-8.3)
--- NOTE | 2021-11-15 17:09 | Hospitalist Progress Note ---
Date of Service November 15, 2021 Assessment & Plan (1) Acute exacerbation of chronic obstructive pulmonary disease (COPD): Plan: Dexamethasone 6mg IV BID Duonebs QID Continue maintenance Advair (2) Hypoxia: Plan: -As above. -Aim O2 sats 88-92% 2 step in AM (3) COVID-19: Plan: Unvaccinated Day 3 of illness Dexamethasone increased dosing due to COPD exacerbation as above Continue remdesivir - need to monitor LFTs while on this Procalcitonin negative CRP 13.4 Discussed possibly he will initially feel better in early phase of illness but possibility of acute worsening around day 10 - however would not keep him in hospital for this reason (4) Syncope: Plan: -Two syncopal episodes at home upon standing from supine position. Head CT negative for any acute process. -Hold lisinopril given ongoing low normal BP, can likely restart after illness resolved with PCP -No arrhythmia on telemetry (5) CAD (coronary artery disease): Plan: -Continue ASA, clopidogrel. statin Lisinopril on hold as above (6) Hyperlipidemia: Plan: - Continue statin as above. (7) Hypertension: Plan: - Hold lisinopril as above. (8) GERD (gastroesophageal reflux disease): Plan: -Patient complaining of diffuse abdominal pain, abdomen is distended on exam. According to previous notes, this seems to be a chronic condition. -Continue dicyclomine. Plan: VTE Prophylaxis - Lovenox 40mg SQ daily - given also on ASA and clopidogrel with short stay duration will avoid higher dosing Diet - regular Disposition - continued inpatient stay due to hypoxia. 2 step tomorrow with suspected discharge tomorrow. Admission and Anticipated Discharge Date Admission Date: November 14, 2021 Anticipated date of discharge: 11/16/21 Subjective Significantly improved since yesterday. When seen he is up and walking around without any dizziness. PT did notice drop in O2 sats on exertion however and patient not on O2 at home. He continues to feel short of breath compared to his baseline. Review of Systems Review of Systems: All systems reviewed & are unremarkable except as noted in HPI & below Physical Exam Constitutional: WD/WN, vitals as above ENMT: external ear and nose normal, oropharynx normal Respiratory: normal respiratory effort, lungs clear to auscultation no pursed lip breathing (present on day of admission) Auscultation: no wheezes Cardiovascular: Extremities: normal capillary refill; no pedal edema Gastrointestinal (Abdomen): Percussion/Palpation: abdomen soft; abdomen nontender Skin: no rashes, warm and dry Psychiatric: A+Ox3, euthymic affect Results & Data Results & Data ([facility]) Vital Signs (Past 12 Hours) Vital Signs Temp Pulse Resp BP BP Pulse Ox 11/15/21 14:49 78 18 93 11/15/21 14:34 36.5 C 77 20 114/72 91 11/15/21 10:36 78 16 95 11/15/21 09:01 115/72 11/15/21 07:23 71 16 95 PG Care Time/CCT Total # of Minutes Spent Total Time Spent with Patient: Total time spent is greater than 50% in coordination of care (as documented) at patient's floor/unit and/or counseling patient: Coding Level of Care Code 00138 Subseq Hosp Care Lvl 2 Diagnoses Acute exacerbation of chronic obstructive pulmonary disease (COPD) J44.1 Hypoxia R09.02 COVID-19 U07.1 Syncope R55 CAD (coronary artery disease) I25.10 Hyperlipidemia E78.5 Hypertension I10 GERD (gastroesophageal reflux disease) K21.9
[2021-11-15] MEDS ORDERED: REMDESIVIR 100 MG in SODIUM CHLORIDE 0.9% 230 ML IV SCH (20:00)
[2021-11-15] MEDS: ENOXAPARIN INJ 40 MG/0.4 ML SYR SQ SCH (20:31)
[2021-11-15] MEDS: SODIUM CHLORIDE 0.9% 10ML FLUSH IV SCH (20:32)
[2021-11-16] MEDS: ALBUT/IPRATROP 3MG/0.5MG NEB 3 ML VIAL NEB SCH ×2 (07:33→10:04)
[2021-11-16 07:34] LABS: Hematocrit (blood only) 39.4 % (42-52); Hemoglobin 13.6 g/dL (14.0-18.0); Immature Granulocytes # (auto) 0.02 K/uL (0.00-0.02); Immature Granulocytes % (auto) 0.2 %; Lymphocytes # (auto) 1.06 K/uL (1.2-3.4); Lymphocytes % (auto) 10.6 %; Mean Corpuscular Hemoglobin 32.2 pg (25-34); Mean Corpuscular Hgb Conc 34.5 g/dL (32-36); Mean Corpuscular Volume 93.1 fL (80-100); Mean Platelet Volume 11.1 fL (7.4-10.4); Monocytes # (auto) 0.79 K/uL (0.11-0.59); Monocytes % (auto) 7.9 %; Neutrophils # (auto) 8.09 K/uL (1.4-6.5); Neutrophils % (auto) 81.3 %; Platelet Count 202 K/uL (130-400); RDW Coefficient of Variation 14.3 % (11.5-14.5); RDW Standard Deviation 48.6 fL (36.4-46.3); Red Blood Count 4.23 M/uL (4.7-6.1); White Blood Count 9.96 K/uL (4.8-10.8)
[2021-11-16 07:57] LABS: Albumin Globulin Ratio 1.2 (0.9-2); Albumin Level 3.4 gm/dl (3.4-5.0); BUN Creatinine Ratio 27.8 (10-20); Bilirubin,Total 0.7 mg/dl (0.2-1.0); Calcium 7.9 mg/dl (8.5-10.1); Est GFR (African American) 94.6 ml/min; Est GFR (Non-African American) 81.6 ml/min; Globulin 2.8 gm/dl (2.5-4.0); Total Protein 6.2 gm/dl (6.0-8.3)
[2021-11-16] MEDS: ATORVASTATIN 40 MG TAB PO SCH (07:57)
[2021-11-16] MEDS: ASPIRIN 81 MG ECTAB PO SCH (07:57)
[2021-11-16] MEDS: dexAMETHasone 6 MG in SYRINGE 0 ML IV SCH (07:57)
[2021-11-16] MEDS: CLOPIDOGREL BISULFATE 75 MG TAB PO SCH (07:58)
[2021-11-16] MEDS: FLUTICASONE/VILANTEROL 200/25MCG 14 PUFFS/INHALER INH SCH (07:58)
--- NOTE | 2021-11-16 14:08 | Discharge Summary ---
Date of Service November 16, 2021 Admission HPI Per Admitting Provider 66-year-old male with history of COPD, CAD, HTN, hyperlipidemia, and GERD presents emergency department for syncope. Patient states that on Monday, he got out of bed when he passed out for an unknown amount of time. His came into the room shortly after and found him lying on his side. Also that day he began experiencing body aches, shortness of breath, nonproductive cough, and nausea. Monday he was at his living room and stood up to go to the bathroom when he passed out again, this time his witnessed it and said he fell onto his side, did not hit his head, and was out for 5 to 10 minutes. Patient is unvaccinated for COVID-19, on Monday began experiencing fatigue, fever chills, nonproductive cough, myalgias, and decreased appetite. He has been struggling with po intake, endorsing only liquids since Monday, about 3-4 8-oz bottles of water, and some orange juice however that gave him an episode of diarrhea. He states he is overall uncomfortable and achy, but specifically complains of generalized abdominal pain. Patient's last bowel movement was today and he reports was normal, no blood no melanotic stool, denies vomiting or constipation. Patient states he has not been taking his any of his medications over the last 2 days because "he has not felt the urge to". Principal Diagnosis COVID-19, COPD exacerbation, hypoxia, syncope Discharge Exam Constitutional WD/WN, vitals as above ENMT external ear and nose normal, oropharynx normal Respiratory normal respiratory effort, lungs clear to auscultation no pursed lip breathing (present on day of admission) Auscultation: no wheezes Cardiovascular Extremities: normal capillary refill; no pedal edema Gastrointestinal (Abdomen) Percussion/Palpation: abdomen soft; abdomen nontender Skin no rashes, warm and dry Psychiatric A+Ox3, euthymic affect Discharge Data Allergies Allergy/AdvReac Type Severity Reaction Status Date / Time IVORY SOAP Allergy Mild RASH Uncoded 11/20/21 23:51 Consultations 11/14/21 16:45 ED Decision to Admit Stat Ordered Studies 11/14/21 14:54 CT angio chest PE protocol Stat Impression: 1. No CTA evidence for pulmonary embolus. 2. Centrilobular emphysematous changes with extensive interstitial fibrotic changes accounting for the prominence of the interstitial markings seen radiographically. There is no evidence for vascular congestion. 3. There are no groundglass opacities, alveolar opacities or air bronchograms. 4. Mild coronary artery calcification. 5. Small hiatal hernia and fatty infiltration of enlarged liver. 11/14/21 14:55 CT head/brain wo con Stat IMPRESSION: No acute intracerebral pathology. Hospital Course (1) Acute exacerbation of chronic obstructive pulmonary disease (COPD): Dago Mcdonald is 66 year old male admitted at [facility] from November 14 to 2021 due to shortness of breath and syncope. He was diagnosed with COVID-19 pneumonia and COPD exacerbation. This was treated with dexamethasone 6mg IV BID, remdesivir and duonebs. He will continue on dexamethasone (BID for total 5 days then daily for 5 days) on discharge given continued hypoxia. Suspect syncope was exacerbated by his lisinopril causing hypotension and has been discontinued - recommend he follows up with his PCP after resolution of symptoms from COVID-19 to see if this needs to be restarted. On discharge he is still requiring 2LPM O2 at rest and 4 LPM O2 on exertion which has been prescribed. He was recommended to continue to isolate per current CDC guidelines and follow up with his PCP once out of isolation. (2) Hypoxia: (3) COVID-19: (4) Syncope: (5) CAD (coronary artery disease): (6) Hyperlipidemia: (7) Hypertension: (8) GERD (gastroesophageal reflux disease): Total Time Total Time Spent Total Time Spent (In Minutes): 40 Discharge Plan Discharge Items Patient Disposition: Home - Self-Care Reason For Visit: SYNCOPE, HYPOXIA, COVID-19 + Discharge Diagnosis: COVID-19, COPD exacerbation, hypoxia, syncope Activity: Resume your previous activity Non-emergency contact: Primary Care Provider Call non-emergency contact if: your symptoms worsen Follow-up/Referrals: Mariaelena Carpenter PA-C [Primary Care Provider] - (PLEASE CALL YOUR PRIMARY CARE PROVIDER TO SCHEDULE A DISCHARGE FOLLOW-UP APPOINTMENT WITHIN 7-10 DAYS.) Diet: Regular Addtl Attending Provider Instructions: You were admitted at [facility] from November 14 to 2021 due to shortness of breath and syncope. You are diagnosed with COVID-19 pneumonia and COPD exacerbation. This was treated with steroids (dexamethasone), remdesivir and nebulizers. Suspect syncope was exacerbated by your lisinopril causing hypotension and this is being discontinued -please follow-up with your primary care physician after you have recovered from COVID-19 to see if this needs to be restarted. You are still requiring some oxygen at discharge which has been arranged for you at home. Please use 2LPM O2 at rest and 4 LPM O2 on exertion. Please follow-up with your primary care physician to wean off this. Please continue to isolate per CDC guidelines to avoid spreading COVID-19 and continue to take precautions until day 10 of illness including avoiding travel, wearing a mask and avoiding being around people who are high risk. You are currently in the early stages of COVID-19 and at risk of getting worse around days 10-14, please return to the emergency room if you feel you are continuously getting worse. Pending Studies at Discharge: No Stand-Alone Forms: My [employer] Smoking Cessation Medications and DC Order Prescriptions: New dexamethasone 6 mg tablet See Rx Instructions .ROUTE .COMPLEX Qty: 11 RF: 0 Continued indomethacin 75 mg capsule, extended release 75 mg PO BID MDD 2 PRN (Reason: prn knee/wrist pain) Qty: 10 RF: 0 albuterol sulfate [ProAir HFA] 90 mcg/actuation Hfa Aerosol Inhaler 2 puff INHALATION QID PRN (Reason: SHORT OF BREATH) RF: 0 atorvastatin 20 mg Tablet 40 mg PO QAM Qty: 1 RF: 3 aspirin 81 mg Tablet,Delayed Release (Dr/Ec) 81 mg PO QAM RF: 0 dicyclomine 10 mg capsule 10 mg PO TID PRN (Reason: Pain) RF: 0 clopidogrel 75 mg tablet 75 mg PO QAM RF: 0 fluticasone propion-salmeterol [Advair Diskus] 250-50 mcg/dose Blister With Device 1 inh INHALATION BID RF: 0 Discontinued lisinopril 20 mg tablet 20 mg PO QAM RF: 0 Discharge Orders: Discharge Order (Routine); Ordered 11/16/21 Ordered By: Iftikhar Delacruz/Other Patient Handouts: 2019-nCoV Admission Data Admit Date/Time: 11/14/21 18:11 Attending Provider: Iftikhar Gonzalez Admit Provider: Iftikhar Gonzalez Primary Care Provider: Mariaelena Carpenter Other Providers: Iftikhar Gonzalez ; [facility] Other Interventions: Discharge Summary Assessment (RN) Last Done: 11/16/21 14:09 Coding Level of Care Code D/C DAY MANAGEMENT >30 MINS Diagnoses Acute exacerbation of chronic obstructive pulmonary disease (COPD) J44.1 Hypoxia R09.02 COVID-19 U07.1 Syncope R55 CAD (coronary artery disease) I25.10 Hyperlipidemia E78.5 Hypertension I10 GERD (gastroesophageal reflux disease) K21.9
== END 2021-11-16 14:50 | disposition home or self-care (01) | DRG 190 ==
LOC: ED 13:54 → 2W 18:11

== ENCOUNTER 2021-11-20 21:31 | Inpatient (IN) ==
[2021-11-20] MEDS ORDERED: methylPREDNISolone 125 MG/2 ML VIAL IV STA (21:47)
[2021-11-20] MEDS ORDERED: ALBUT/IPRATROP 3MG/0.5MG NEB 3 ML VIAL NEB STA ×2 (21:47→21:57)
[2021-11-20 22:27] LABS: Basophils # (auto) 0.01 K/uL (0-0.2); Basophils % (auto) 0.1 %; Hemoglobin 13.6 g/dL (14.0-18.0); Immature Granulocytes % (auto) 0.7 %; Lymphocytes # (auto) 1.22 K/uL (1.2-3.4); Mean Corpuscular Hemoglobin 31.9 pg (25-34); Mean Corpuscular Hgb Conc 34.9 g/dL (32-36); Mean Corpuscular Volume 91.3 fL (80-100); Mean Platelet Volume 10.4 fL (7.4-10.4); Monocytes # (auto) 1.14 K/uL (0.11-0.59); Monocytes % (auto) 7.5 %; Neutrophils # (auto) 12.69 K/uL (1.4-6.5); Neutrophils % (auto) 83.7 %; Platelet Count 330 K/uL (130-400); RDW Coefficient of Variation 13.9 % (11.5-14.5); RDW Standard Deviation 46.7 fL (36.4-46.3); Red Blood Count 4.27 M/uL (4.7-6.1); White Blood Count 15.16 K/uL (4.8-10.8)
[2021-11-20 22:30] LABS: Base Excess VBG -2.2 mEq/L; Oxygen Saturation VBG 82.8 %; pH VBG 7.47 (7.36-7.41)
--- NOTE | 2021-11-20 22:32 | XRay Report ---
SINGLE VIEW CHEST CLINICAL HISTORY: Dyspnea. FINDINGS: An AP, portable, upright chest radiograph is compared to chest x-ray and chest CT dated 10/30. The cardiomediastinal silhouette is unremarkable. Emphysema and chronic interstitial thickeni ng is similar to previous. Bilateral airspace opacities have increased from previous. No large pleura l effusion or pneumothorax is identified. The skeletal structures appear osteopenic. The bony thorax is grossly intact. There is widening of the left acromioclavicular joint. Degenerative changes noted at the right AC joint. IMPRESSION: 1. Emphysema. 2. Hazy bilateral airspace opacities have increased from 11/14/2021 and suggest an infectious/inflamma tory pneumonitis. Clinical correlation will be required. ACT 112: Negative or not required by law. Electronically signed by: Deonte Cline M.D. 11/20/2021 10:31 PM
[2021-11-20 22:55] LABS: Troponin I < 0.03 ng/ml (0-0.04)
--- NOTE | 2021-11-20 22:57 | Emergency Department Note ---
History of Present Illness General Chief Complaint: Respiratory Problems Stated Complaint: LOW OXYGEN, AT 82, COVID + 11/14 Time Seen by Provider: 11/20/21 21:47 History of Present Illness Provider Complaint: shortness of breath and cough Onset (ago): day(s) (1) Severity: severe Consistency/Duration: + progressively worsening Maximum Pain Intensity: 8 Relieved By: + nothing Exacerbated By: + exertion and + coughing Context: + recent illness (Diagnosed with COVID-19 on November 14, 2021) Known history of: COPD Associated symptoms: + fever, + cough, + wheezing, + sputum production, + nausea/vomiting and + chest congestion Home Medications Medication Instructions Recorded Confirmed Type albuterol sulfate 90 mcg/actuation 2 puff INHALATION QID PRN 09/07/20 11/14/21 History aerosol inhaler (ProAir HFA) atorvastatin 20 mg tablet 40 mg PO QAM #1 tab 04/12/21 11/14/21 Rx aspirin 81 mg tablet,delayed 81 mg PO QAM 05/24/21 11/14/21 History release indomethacin 75 mg 75 mg PO BID PRN #10 cap MDD 2 05/24/21 11/14/21 Rx capsule,extended release clopidogrel 75 mg tablet 75 mg PO QAM 11/14/21 11/14/21 History dicyclomine 10 mg capsule 10 mg PO TID PRN 11/14/21 11/14/21 History fluticasone 250 mcg-salmeterol 50 1 inh INHALATION BID 11/14/21 11/14/21 History mcg/dose blistr powdr for inhalation (Advair Diskus) dexamethasone 6 mg tablet See Rx Instructions .ROUTE 11/16/21 Rx .COMPLEX #11 tab Allergies Allergy/AdvReac Type Severity Reaction Status Date / Time IVORY SOAP Allergy Mild RASH Uncoded 11/14/21 14:56 Past Med/Surg History Medical History Chronic obstructive pulmonary disease MILD- BREATHING STABLE- OCC AGGREVATION OF SYMPTOMS Degenerative disc disease CERVICAL GERD (gastroesophageal reflux disease) WELL CONTROLLED AND STABLE Hyperlipidemia Hypertension Osteoarthritis Surgical History H/O neck surgery 2016---CERVICAL normal ROM C5-7 History of appendectomy History of colonoscopy with polypectomy History of esophagogastroduodenoscopy (EGD) History of hand surgery right middle finger tip of finger removed History of surgery NERVE GRAFT LEFT HAND History of wisdom tooth extraction S/P left knee arthroscopy X3 Family History Other No family history of adverse response to anesthesia Social History Smoking Status: Never smoker Tobacco Type: Cigarettes Second Hand Exposure: No; Hx Alcohol Use: Yes Alcohol type: beer Hx Substance Use: No Preferred Language: Icelandic Communication Ability: Effective Professional Skater Required: No Beliefs That Will Affect Care: None marital status: Current Living Situation: Spouse current occupation: skilled nursing disability Feels Safe at Home: Yes Assistive Devices: Cane and Walker Review of Systems A total of 10 systems reviewed and were otherwise negative Physical Exam Vital Signs: Vital Signs - 24 hr 11/20/21 21:37 11/20/21 22:08 Temperature 36.2 C L Temperature Source Temporal Artery Sc an Pulse Rate 114 H Pulse Rate [Right Finger] 96 H Pulse Rhythm [Righ t Finger] Regular Pulse Strength [Ri ght Finger] Normal Respiratory Rate 32 H 14 Respiratory Effort / Characteristics Labored Non-Labored Respiratory Depth Normal Respiratory Patter n Regular Blood Pressure 131/71 Blood Pressure [Ri ght Arm] 127/80 Blood Pressure Alexandra n 91 Blood Pressure Alexandra n [Right Arm] 95 Blood Pressure Pos ition [Right Arm] Lying Pulse Oximetry 84 L 95 Oxygen Delivery Me thod Nasal Cannula Nasal Cannula Oxygen Flow Rate 2 6 Sepsis Recent Feve r Within 48 Hours No Sepsis New/Unexpla ined Change in Men shaye Status N/A Sepsis Action Take n by Nursing No Action Required Physical Exam: Physical Exam HENT: Exam performed. - Head: Normocephalic and atraumatic. - Right Ear: External ear normal. No mastoid tenderness. - Left Ear: External ear normal. No mastoid tenderness. - Mouth/Throat: The oropharynx is clear and moist. No trismus in the jaw. No dental abscesses or uvula swelling. No oropharyngeal exudate or tonsillar abscesses. EYES: Conjunctivae and EOM are normal. Pupils are equal, round, and reactive to light. Right eye exhibits no discharge. Left eye exhibits no discharge. No scleral icterus. NECK: Normal range of motion. Neck supple. No JVD present. No spinous process tenderness present. No carotid bruit present. No rigidity. No tracheal deviation and normal range of motion present. No Brudzinski's sign and no Kernig's sign noted. CV: Normal rate, regular rhythm, normal heart sounds and intact distal pulses. There is no peripheral edema. Palpable radial pulses bue. PULM/CHEST: Tachypneic. Bilateral expiratory wheezes. - Chest Wall: He exhibits no tenderness. ABD: The abdomen is soft. Bowel sounds are normal. He has no distension. No mass is present. There is no tenderness. There is no rebound, no guarding, no Greene's sign and no tenderness at McBurney's point. Rovsig negative. MUSC/SKEL: Normal range of motion. There is no peripheral edema, tenderness or deformity. LYMPH: No cervical adenopathy. NEURO: He is alert and oriented to person, place, and time. He has normal strength. No cranial nerve deficit or sensory deficit. Coordination and gait normal. GCS eye subscore is 4. GCS verbal subscore is 5. GCS motor subscore is 6. Cerebellar tests wnl. SKIN: Skin is warm and dry. He is not diaphoretic. PSYCH: He has a normal mood and affect. Behavior is normal. Judgment and thought content normal. Course Course 2146: The patient was evaluated in room C4. A complete history and physical exam was performed Cardiac monitoring: An order was placed for continuous cardiac monitoring. The monitor shows a rate of 90 with sinus rhythm EMR reviewed. Patient was seen in the emergency department on November 14, 2021, 6 days ago. At that time he was diagnosed with COVID-19 and was hypoxic. Patient had a negative CTA of the chest that day. Patient was admitted to the [facility] team and received remdesivir as well as Decadron as well as breathing treatments. He was discharged 2 days later on November 16, 2021 with home oxygen instructed to use 2 L at rest and 4 L when exerting himself. Patient reports that he was using his home oxygen at 2 L and his oxygen level was 82% and he felt like he could not catch his breath so he returned to the emergency department. On 2 L nasal cannula the patient's oxygen saturation was in the low to mid 80s. Patient's oxygen level was increased to 6 L which improved his oxygen saturation and he states he feels like he can breathe better on the 6 L. Patient is not vaccinated against COVID-19. 2312: Vital signs stable on 6 L nasal cannula status post 2 DuoNeb treatments and Solu-Medrol 125 mg IV push. Patient's labs are within normal limits. X-ray does show bilateral groundglass opacities. [facility] team notified. Administered Medications Discontinued Medications Albuterol (Albut/Ipratrop 3mg/0.5mg Neb 3 Ml Vial) 3 ml NEB NOW STA; Protocol Stop: 11/20/21 21:48 Last Admin: 11/20/21 22:12 Dose: 3 ml Documented by: [id number] Albuterol (Albut/Ipratrop 3mg/0.5mg Neb 3 Ml Vial) 3 ml NEB NOW STA; Protocol Stop: 11/20/21 21:58 Last Admin: 11/20/21 22:12 Dose: Not Given Documented by: [id number] Methylprednisolone (Methylprednisolone 125 Mg/2 Ml Vial) 125 mg IV NOW STA Stop: 11/20/21 21:48 Last Admin: 11/20/21 22:12 Dose: 125 mg Documented by: [id number] Medical Decision Making Laboratory Data Result diagrams: 11/20/21 22:15 11/20/21 22:15 Lab Results 11/20/21 11/20/21 11/20/21 Range/Units 22:15 22:15 22:15 WBC 15.16 H (4.8-10.8) K/uL RBC 4.27 L (4.7-6.1) M/uL Hgb 13.6 L (14.0-18.0) g/dL Hct 39.0 L (42-52) % MCV 91.3 (80-100) fL MCH 31.9 (25-34) pg MCHC 34.9 (32-36) g/dL RDW Std Deviation 46.7 H (36.4-46.3) fL RDW Coeff of Lexi 13.9 (11.5-14.5) % Plt Count 330 (130-400) K/uL MPV 10.4 (7.4-10.4) fL Immature Gran % (Auto) 0.7 % Neut % (Auto) 83.7 % Lymph % (Auto) 8.0 % Webb % (Auto) 7.5 % Eos % (Auto) 0.0 % Baso % (Auto) 0.1 % Neut # (Auto) 12.69 H (1.4-6.5) K/uL Lymph # (Auto) 1.22 (1.2-3.4) K/uL Webb # (Auto) 1.14 H (0.11-0.59) K/uL Eos # (Auto) 0.00 (0-0.5) K/uL Baso # (Auto) 0.01 (0-0.2) K/uL Immature Gran # (Auto) 0.10 H (0.00-0.02) K/uL VBG pH 7.47 H (7.36-7.41) VBG pCO2 28 L (38-50) mmHg VBG pO2 47 mmHg VBG HCO3 20 mmol/L VBG O2 Saturation 82.8 % VBG Base Excess -2.2 mEq/L Barometric Pressure 732.2 mm/Hg Sodium 136 (136-145) mmol/L Potassium 4.1 (3.5-5.1) mmol/L Chloride 107 (98-107) mmol/L Carbon Dioxide 20 L (21-32) mmol/L Anion Gap 9 (3-11) BUN 24 H (6-23) mg/dl Creatinine 0.83 (0.6-1.4) mg/dl Est Cr Clr Drug Dosing 100.2 ml/min Est GFR ( Amer) 107.0 ml/min Est GFR (Non-Af Amer) 92.3 ml/min BUN/Creatinine Ratio 28.9 H (10-20) Glucose 99 (70-99(Fasting)) mg/dl Calcium 8.1 L (8.5-10.1) mg/dl Troponin I < 0.03 (0-0.04) ng/ml Imaging Data Radiologist's Impression: Chest X-Ray 11/20/21 21:48 SINGLE VIEW CHEST CLINICAL HISTORY: Dyspnea. FINDINGS: An AP, portable, upright chest radiograph is compared to chest x-ray and chest CT dated 11/14/2021. The cardiomediastinal silhouette is unremarkable. Emphysema and chronic interstitial thickening is similar to previous. Bilateral airspace opacities have increased from previous. No large pleural effusion or pneumothorax is identified. The skeletal structures appear osteopenic. The bony thorax is grossly intact. There is widening of the left acromioclavicular joint. Degenerative changes noted at the right AC joint. IMPRESSION: 1. Emphysema. 2. Hazy bilateral airspace opacities have increased from 11/14/2021 and suggest an infectious/inflammatory pneumonitis. Clinical correlation will be required. ACT 112: Negative or not required by law. Electronically signed by: Deonte Cline M.D. 11/20/2021 10:31 PM ECG Data Interpretation: Sinus rhythm with a rate of 93. CT 138 QRS [address] elevation or depression. [facility] Narrative 2147: The patient was evaluated in room C4. A complete history and physical exam was performed Cardiac monitoring: An order was placed for continuous cardiac monitoring. The monitor shows a rate of 90 with sinus rhythm EMR reviewed. Patient was seen in the emergency department on November 14, 2021, 6 days ago. At that time he was diagnosed with COVID-19 and was hypoxic. Patient had a negative CTA of the chest that day. Patient was admitted to the [facility] team and received remdesivir as well as Decadron as well as breathing treatments. He was discharged 2 days later on November 16, 2021 with home oxygen instructed to use 2 L at rest and 4 L when exerting himself. Patient reports that he was using his home oxygen at 2 L and his oxygen level was 82% and he felt like he could not catch his breath so he returned to the [facility] department. On 2 L nasal cannula the patient's oxygen saturation was in the low to mid 80s. Patient's oxygen level was increased to 6 L which improved his oxygen saturation and he states he feels like he can breathe better on the 6 L. Patient is not vaccinated against COVID-19. 2312: Vital signs stable on 6 L nasal cannula status post 2 DuoNeb treatments and Solu-Medrol 125 mg IV push. Patient's labs are within normal limits. X-ray does show bilateral groundglass opacities. [facility] team notified. Impression & Plan COPD exacerbation, COVID-19 Discharge Plan Visit Data Chief Complaint: Respiratory Problems Stated Complaint: LOW OXYGEN, AT 82, COVID + 11/14 ED Provider: Juan Floyd Discharge Problem: COPD exacerbation, COVID-19 Forms Stand Alone Forms: My [facility] [employer] Prescriptions Prescriptions: No Action indomethacin 75 mg capsule, extended release 75 mg PO BID MDD 2 PRN (Reason: prn knee/wrist pain) Qty: 10 RF: 0 albuterol sulfate [ProAir HFA] 90 mcg/actuation Hfa Aerosol Inhaler 2 puff INHALATION QID PRN (Reason: SHORT OF BREATH) RF: 0 atorvastatin 20 mg Tablet 40 mg PO QAM Qty: 1 RF: 3 aspirin 81 mg Tablet,Delayed Release (Dr/Ec) 81 mg PO QAM RF: 0 dicyclomine 10 mg capsule 10 mg PO TID PRN (Reason: Pain) RF: 0 clopidogrel 75 mg tablet 75 mg PO QAM RF: 0 fluticasone propion-salmeterol [Advair Diskus] 250-50 mcg/dose Blister With Device 1 inh INHALATION BID RF: 0 dexamethasone 6 mg tablet See Rx Instructions .ROUTE .COMPLEX Qty: 11 RF: 0 Referrals Referrals: Mariaelena Carpenter PA-C [Primary Care Provider] -
[2021-11-20 22:58] LABS: Anion Gap 9 (3-11); BUN Creatinine Ratio 28.9 (10-20); Blood Urea Nitrogen 24 mg/dl (6-23); Calcium 8.1 mg/dl (8.5-10.1); Carbon Dioxide 20 mmol/L (21-32); Chloride 107 mmol/L (98-107); Creatinine Clr Calc Pharmacy 100.2 ml/min; Est GFR (Non-African American) 92.3 ml/min; Glucose 99 mg/dl (70-99(Fasting)); Potassium 4.1 mmol/L (3.5-5.1); Sodium 136 mmol/L (136-145)
--- NOTE | 2021-11-20 23:46 | History & Physical Report ---
Date of Service November 20, 2021 Assessment & Plan (1) COVID-19: Plan: COVID-19 pneumonia/secondary bacterial pneumonia/COPD exacerbation- Dexamethasone 6 mg IV every 12 hours He received remdesivir loading dose on 11/14, and 1 maintenance dose on 11/15. Will place on additional 3 days of remdesivir Ceftriaxone 2 g IV daily Azithromycin 5 mg IV daily Combivent Respimat 2 puffs 4 times daily DuoNebs every 2 hours as needed Guaifenesin extended release 12 mg p.o. twice daily Vitamin D 5000 international units p.o. every morning Zinc sulfate 220 mg p.o. every morning Nasal cannula oxygen, titrate to keep pulse ox around 92% (2) Hypoxia: Plan: See above (3) Secondary bacterial pneumonia: Plan: See above (4) COPD exacerbation: Plan: See above (5) CAD (coronary artery disease): Plan: Continue aspirin 81 mg daily and clopidogrel 75 mg daily (6) Hyperlipidemia: Plan: Continue atorvastatin 40 mg daily History of Present Illness Chief Complaint: The patient presents to the emergency department with worsening shortness of breath, after initial improvement for a few days, post discharge from hospital on 11/16 Primary Care Provider: Mariaelena Carpenter PA-C The patient is a 66-year-old male with a past medical history including COPD, hyperlipidemia, hypertension, syncope, CAD, cervical spine stenosis, shingles, GERD, history of neck surgery and status post left knee arthroscopy. Initially developed symptoms on 11/13, was then admitted from 11/14-11/16, discharged to home, felt good on 11/17 through , and then developed symptoms on 11/20. He was diagnosed with COVID-19 on 11/14/2021. He was discharged home on dexamethasone and albuterol inhaler, which he reports taking as directed. In the emergency department this evening, his pulse ox was recorded as 84% on room air, chest x- ray showed some moderate worsening compared to 11/14, and he was thus referred for evaluation for admission. From the ED he received the following medications: Solu-Medrol 125 mg IV, and duo nebs x2. Allergies Allergy/AdvReac Type Severity Reaction Status Date / Time IVORY SOAP Allergy Mild RASH Uncoded 11/20/21 23:51 Home Medications Medication Instructions Recorded Confirmed Type albuterol sulfate 90 mcg/actuation 2 puff INHALATION QID PRN 09/07/20 11/20/21 History aerosol inhaler (ProAir HFA) atorvastatin 20 mg tablet 40 mg PO QAM #1 tab 04/12/21 11/20/21 Rx aspirin 81 mg tablet,delayed 81 mg PO QAM 05/24/21 11/20/21 History release indomethacin 75 mg 75 mg PO BID PRN #10 cap MDD 2 05/24/21 11/20/21 Rx capsule,extended release clopidogrel 75 mg tablet 75 mg PO QAM 11/14/21 11/20/21 History dicyclomine 10 mg capsule 10 mg PO TID PRN 11/14/21 11/20/21 History fluticasone 250 mcg-salmeterol 50 1 inh INHALATION BID 11/14/21 11/20/21 History mcg/dose blistr powdr for inhalation (Advair Diskus) dexamethasone 6 mg tablet See Rx Instructions .ROUTE 11/16/21 11/20/21 Rx .COMPLEX #11 tab Past Med/Surg History Medical History Chronic obstructive pulmonary disease MILD- BREATHING STABLE- OCC AGGREVATION OF SYMPTOMS Degenerative disc disease CERVICAL GERD (gastroesophageal reflux disease) WELL CONTROLLED AND STABLE Hyperlipidemia Hypertension Osteoarthritis Surgical History H/O neck surgery 2016---CERVICAL normal ROM C5-7 History of appendectomy History of colonoscopy with polypectomy History of esophagogastroduodenoscopy (EGD) History of hand surgery right middle finger tip of finger removed History of surgery NERVE GRAFT LEFT HAND History of wisdom tooth extraction S/P left knee arthroscopy X3 Family History Other No family history of adverse response to anesthesia Social History Smoking Status: Never smoker Tobacco Type: Cigarettes Second Hand Exposure: No; Hx Alcohol Use: Yes Alcohol type: beer Hx Substance Use: No Preferred Language: Italian Communication Ability: Effective [employer] Supervisor Required: No Beliefs That Will Affect Care: None marital status: Current Living Situation: Spouse current occupation: halfway disability Feels Safe at Home: Yes Assistive Devices: Cane and Walker Review of Systems Review of Systems: The patient denies chest pain, palpitations, lower extremity swelling, sore throat, fevers, chills, sweats, nausea, vomiting, diarrhea , constipation, abdominal pain, pelvic pain, blood in urine or stool, dysuria, urinary frequency or urgency, lightheadedness, dizziness, headache, memory loss, loss of consciousness, rash, abnormal bruising or bleeding, imbalance, focal or generalized weakness, numbness or tingling in arms or legs, generalized arthralgias or myalgias, back or neck pain, or night sweats. The review of systems is otherwise negative other than for that already noted above, and at least 10 systems have been reviewed. Physical Exam Physical Exam: The patient is awake, alert and oriented 3, well developed and well nourished, normocephalic and atraumatic, lying in bed and in no acute distress. HEENT--PERRL, EOMI, mucous membranes and oropharynx normal. Neck--supple. No JVD. No bruits. Thyroid normal, trachea midline, no adenopathy. Heart--normal S1 and S2. No murmurs, rubs or gallops. Lungs--coarse breath sounds and wheezes bilaterally. No respiratory distress, no accessory muscle use. Abdomen--normal bowel sounds and soft. Nontender. Nondistended. Mildly obese Extremities--no cyanosis or clubbing. No edema. Dermatologic--normal skin turgor, normal color, no abnormal lymph nodes, no rash. Neurologic--cranial nerves II through XII grossly intact. Rheumatologic--normal range of motion. Psychiatric--normal affect. Results & Data Results & Data ([facility]) Vital Signs (Past 12 Hours) Vital Signs Temp Pulse Pulse Resp BP BP Pulse Ox 11/20/21 22:08 96 H 14 127/80 95 11/20/21 21:37 36.2 C L 114 H 32 H 131/71 84 L Laboratory Results Laboratory Results WBC 15.16 K/uL (4.8-10.8) H 11/20/21 22:15 RBC 4.27 M/uL (4.7-6.1) L 11/20/21 22:15 Hgb 13.6 g/dL (14.0-18.0) L 11/20/21 22:15 Hct 39.0 % (42-52) L 11/20/21 22:15 MCV 91.3 fL (80-100) 11/20/21 22:15 MCH 31.9 pg (25-34) 11/20/21 22:15 MCHC 34.9 g/dL (32-36) 11/20/21 22:15 RDW Std Deviation 46.7 fL (36.4-46.3) H 11/20/21 22:15 RDW Coeff of Lexi 13.9 % (11.5-14.5) 11/20/21:15 Plt Count 330 K/uL (130-400) 11/20/21 22:15 MPV 10.4 fL (7.4-10.4) 11/20/21:15 Immature Gran % (Auto) 0.7 % 11/20/21:15 Neut % (Auto) 83.7 % 11/20/21:15 Lymph % (Auto) 8.0 % 11/20/21:15 [place] % (Auto) 7.5 % 11/20/21:15 Eos % (Auto) 0.0 % 11/20/21:15 Baso % (Auto) 0.1 % 11/20/21:15 Neut # (Auto) 12.69 K/uL (1.4-6.5) H 11/20/21:15 Lymph # (Auto) 1.22 K/uL (1.2-3.4) 11/20/21 22:15 [place] # (Auto) 1.14 K/uL (0.11-0.59) H 11/20/21:15 Eos # (Auto) 0.00 K/uL (0-0.5) 11/20/21:15 Baso # (Auto) 0.01 K/uL (0-0.2) 11/20/21:15 Immature Gran # (Auto) 0.10 K/uL (0.00-0.02) H 11/20/21:15 VBG pH 7.47 (7.36-7.41) H 11/20/21 22:15 VBG pCO2 28 mmHg (38-50) L 11/20/21:15 VBG pO2 47 mmHg 11/20/21 22:15 VBG HCO3 20 mmol/L 11/20/21 22:15 VBG O2 Saturation 82.8 % 11/20/21 22:15 VBG Base Excess -2.2 mEq/L 11/20/21 22:15 Barometric Pressure 732.2 mm/Hg 11/20/21 22:15 Sodium 136 mmol/L (136-145) 11/20/21 22:15 Potassium 4.1 mmol/L (3.5-5.1) 11/20/21 22:15 Chloride 107 mmol/L (98-107) 11/20/21 22:15 Carbon Dioxide 20 mmol/L (21-32) L 11/20/21 22:15 Anion Gap 9 (3-11) 11/20/21 22:15 BUN 24 mg/dl (6-23) H 11/20/21 22:15 Creatinine 0.83 mg/dl (0.6-1.4) 11/20/21 22:15 Est Cr Clr Drug Dosing 100.2 ml/min 11/20/21 22:15 Est GFR ( Amer) 107.0 ml/min 11/20/21 22:15 Est GFR (Non-Af Amer) 92.3 ml/min 11/20/21 22:15 BUN/Creatinine Ratio 28.9 (10-20) H 11/20/21 22:15 Glucose 99 mg/dl (70-99(Fasting)) 11/20/21 22:15 Calcium 8.1 mg/dl (8.5-10.1) L 11/20/21 22:15 Troponin I < 0.03 ng/ml (0-0.04) 11/20/21 22:15 Impressions Chest X-Ray 11/20/21 21:48 SINGLE VIEW CHEST CLINICAL HISTORY: Dyspnea. FINDINGS: An AP, portable, upright chest radiograph is compared to chest x-ray and chest CT dated 11/14/2021. The cardiomediastinal silhouette is unremarkable. Emphysema and chronic interstitial thickening is similar to previous. Bilateral airspace opacities have increased from previous. No large pleural effusion or pneumothorax is identified. The skeletal structures appear osteopenic. The bony thorax is grossly intact. There is widening of the left acromioclavicular joint. Degenerative changes noted at the right AC joint. IMPRESSION: 1. Emphysema. 2. Hazy bilateral airspace opacities have increased from 11/14/2021 and suggest an infectious/inflammatory pneumonitis. Clinical correlation will be required. ACT 112: Negative or not required by law. Electronically signed by: Deonte Cline M.D. 11/20/2021 10:31 PM Code Status & VTE Plan Code Status Full code VTE Prophylaxis Plan VTE Prophylaxis will be ordered: Yes PG Care Time/CCT Total # of Minutes Spent Total Time Spent with Patient: Total time spent is greater than 50% in coordination of care (as documented) at patient's floor/unit and/or counseling patient: Coding Level of Care Code 92235 Initial Inpt Care Lvl 3 Diagnoses COVID-19 U07.1 Hypoxia R09.02 CAD (coronary artery disease) I25.10 Hyperlipidemia E78.5 Secondary bacterial pneumonia J15.9 COPD exacerbation J44.1
[2021-11-21] MEDS: cefTRIAXone SODIUM 2,000 MG in DEXTROSE 5% 50 ML IV SCH (00:29)
[2021-11-21] MEDS: REMDESIVIR 100 MG in SODIUM CHLORIDE 0.9% 230 ML IV SCH (01:21)
[2021-11-21] MEDS ORDERED: ALBUT/IPRATROP 3MG/0.5MG NEB 3 ML VIAL NEB PRN (02:42)
[2021-11-21] MEDS ORDERED: DICYCLOMINE HCL 10 MG CAP PO PRN (02:42)
[2021-11-21] MEDS ORDERED: ONDANSETRON INJ 2 MG/ML 2 ML VIAL IV PRN (02:42)
[2021-11-21] MEDS ORDERED: ACETAMINOPHEN 325 MG TAB PO PRN (02:42)
[2021-11-21] MEDS: dexAMETHasone 6 MG in SYRINGE 0 ML IV SCH ×2 (03:41→21:36)
[2021-11-21] MEDS: ALBUTEROL HFA 8 GM INHALER INH SCH ×4 (07:13→19:23)
[2021-11-21] MEDS: IPRATROPIUM BROMIDE HFA INHALER INH SCH ×4 (07:13→19:23)
--- NOTE | 2021-11-21 07:37 | Electrocardiogram Report ---
Test Reason : Blood Pressure : / mmHG Vent. Rate : 093 BPM Atrial Rate : 093 BPM P-R Int : 138 ms QRS Dur : 072 ms QT Int : 358 ms P-R-T Axes : 060 031 062 degrees QTc Int : 445 ms Normal sinus rhythm Normal ECG When compared with ECG of 14-NOV-2021 14:35, No significant change was found Confirmed by Adithya Padilla ([id number]) on 11/21/2021 7:37:21 AM Referred By: REFERRED SELF Confirmed By:Juan Padilla
[2021-11-21] MEDS ORDERED: IPRATROPIUM BROMIDE/ALBUTEROL respimat INH INH SCH (09:00)
[2021-11-21] MEDS: CHOLECALCIFEROL 5,000 UNITS 125 MCG TAB PO SCH (09:23)
[2021-11-21] MEDS: ATORVASTATIN 40 MG TAB PO SCH (09:23)
[2021-11-21] MEDS: guaiFENesin 600 MG TABCR PO SCH ×2 (09:23→21:36)
[2021-11-21] MEDS: CLOPIDOGREL BISULFATE 75 MG TAB PO SCH (09:23)
[2021-11-21] MEDS: ZINC SULFATE 220 MG CAPSULE PO SCH (09:23)
[2021-11-21] MEDS: ASPIRIN 81 MG ECTAB PO SCH (09:23)
[2021-11-21] MEDS: AZITHROMYCIN 500 MG in DEXTROSE 5% 250 ML IV SCH (10:35)
--- NOTE | 2021-11-21 16:39 | Hospitalist Progress Note ---
Date of Service November 21, 2021 Assessment & Plan (1) COVID-19: Plan: COVID-19 pneumonia with suspected bactreial superimposition Dexamethasone 6 mg IV every 12 hours, IV Remdesivir Empiric Ceftriaxone 2 g IV daily, Azithromycin 5 mg IV daily Check procalcitonin Guaifenesin extended release 12 mg p.o. twice daily Vitamin D 5000 international units p.o. every morning Zinc sulfate 220 mg p.o. every morning monitor inflammatory markers (2) Hypoxia: Plan: supplemental oxygen wean as tolerated (3) Secondary bacterial pneumonia: Plan: continue antibiotics as above check procalcitonin discontinue antibiotics if procalcitonin is normal (4) COPD exacerbation: Plan: Combivent Respimat 2 puffs 4 times daily DuoNebs every 2 hours as needed (5) CAD (coronary artery disease): Plan: Continue aspirin 81 mg daily and clopidogrel 75 mg daily (6) Hyperlipidemia: Plan: Continue atorvastatin 40 mg daily Admission and Anticipated Discharge Date Admission Date: November 20, 2021 Subjective patient seen and examined, says shortness of breath is better. denies cough Review of Systems Review of Systems: All systems reviewed are negative, apart from the ones contained in the history. Physical Exam Physical Exam: The patient is awake, alert and oriented 3, well developed and well nourished, normocephalic and atraumatic, lying in bed and in no acute distress. HEENT--PERRL, EOMI, mucous membranes and oropharynx mildly dry Neck--supple. No JVD. No bruits. Thyroid normal, trachea midline, no adenopathy. Heart--normal S1 and S2. No murmurs, rubs or gallops. Lungs--reduced air entry on auscultation Abdomen--normal bowel sounds and soft. Mild epigastric and left sided abdominal pain Extremities--no cyanosis or clubbing. No edema. Dermatologic--normal skin turgor, normal color, no abnormal lymph nodes, no rash. Neurologic--cranial nerves II through XII grossly intact. Rheumatologic--normal range of motion. Psychiatric--normal affect. Results & Data Results & Data ([facility]) Vital Signs (Past 12 Hours) Vital Signs Temp Pulse Pulse Pulse Resp BP Pulse Ox 11/21/21 16:09 78 22 87 L 11/21/21 15:00 78 11/21/21 14:21 85 11/21/21 14:05 97.7 F 79 22 150/73 H 90 11/21/21 12:00 98.4 F 80 20 151/72 H 91 11/21/21 10:44 92 H 20 91 11/21/21 08:00 88 22 155/81 H 92 11/21/21 07:13 89 23 91 11/21/21 05:47 71 18 162/85 H 92 PG Care Time/CCT Total # of Minutes Spent Total Time Spent with Patient: Total time spent is greater than 50% in coordination of care (as documented) at patient's floor/unit and/or counseling patient: Coding Level of Care Code 47309 Subseq Hosp Care Lvl 2 Diagnoses COVID-19 U07.1 Hypoxia R09.02 Secondary bacterial pneumonia J15.9 COPD exacerbation J44.1 CAD (coronary artery disease) I25.10 Hyperlipidemia E78.5 Time Spent (min) 35
[2021-11-22] MEDS: cefTRIAXone SODIUM 2,000 MG in DEXTROSE 5% 50 ML IV SCH (00:05)
[2021-11-22] MEDS: REMDESIVIR 100 MG in SODIUM CHLORIDE 0.9% 230 ML IV SCH ×2 (00:55→23:59)
[2021-11-22 07:33] LABS: Eosinophils # (auto) 0.03 K/uL (0-0.5); Eosinophils % (auto) 0.3 %; Hematocrit (blood only) 38.3 % (42-52); Hemoglobin 13.3 g/dL (14.0-18.0); Immature Granulocytes # (auto) 0.05 K/uL (0.00-0.02); Immature Granulocytes % (auto) 0.5 %; Lymphocytes # (auto) 1.14 K/uL (1.2-3.4); Lymphocytes % (auto) 12.3 %; Mean Corpuscular Hemoglobin 32.1 pg (25-34); Mean Corpuscular Hgb Conc 34.7 g/dL (32-36); Mean Corpuscular Volume 92.5 fL (80-100); Mean Platelet Volume 10.1 fL (7.4-10.4); Monocytes # (auto) 0.22 K/uL (0.11-0.59); Monocytes % (auto) 2.4 %; Neutrophils # (auto) 7.82 K/uL (1.4-6.5); Neutrophils % (auto) 84.5 %; Platelet Count 384 K/uL (130-400); RDW Coefficient of Variation 14.4 % (11.5-14.5); RDW Standard Deviation 48.8 fL (36.4-46.3); Red Blood Count 4.14 M/uL (4.7-6.1); White Blood Count 9.26 K/uL (4.8-10.8)
[2021-11-22 07:54] LABS: Albumin Level 3.2 gm/dl (3.4-5.0); BUN Creatinine Ratio 28.9 (10-20); Bilirubin,Total 0.9 mg/dl (0.2-1.0); C Reactive Protein 8.61 mg/dl (0-0.5); Calcium 7.9 mg/dl (8.5-10.1); Creatinine Clr Calc Pharmacy 92.4 ml/min; Est GFR (African American) 103.5 ml/min; Est GFR (Non-African American) 89.3 ml/min; Globulin 3.1 gm/dl (2.5-4.0); Potassium 4.2 mmol/L (3.5-5.1); Total Protein 6.3 gm/dl (6.0-8.3)
[2021-11-22] MEDS: AZITHROMYCIN 500 MG in DEXTROSE 5% 250 ML IV SCH (07:54)
[2021-11-22] MEDS: guaiFENesin 600 MG TABCR PO SCH ×2 (07:55→19:49)
[2021-11-22] MEDS: dexAMETHasone 6 MG in SYRINGE 0 ML IV SCH ×2 (07:55→19:49)
[2021-11-22] MEDS: CHOLECALCIFEROL 5,000 UNITS 125 MCG TAB PO SCH (07:55)
[2021-11-22] MEDS: ZINC SULFATE 220 MG CAPSULE PO SCH (07:55)
[2021-11-22] MEDS: CLOPIDOGREL BISULFATE 75 MG TAB PO SCH (07:57)
[2021-11-22] MEDS: ASPIRIN 81 MG ECTAB PO SCH (07:58)
[2021-11-22] MEDS: ATORVASTATIN 40 MG TAB PO SCH (07:58)
[2021-11-22] MEDS: IPRATROPIUM BROMIDE HFA INHALER INH SCH ×4 (08:08→19:30)
[2021-11-22] MEDS: ALBUTEROL HFA 8 GM INHALER INH SCH ×4 (08:08→19:30)
[2021-11-22 08:12] LABS: Ferritin 416.4 ng/ml (8-388)
--- NOTE | 2021-11-22 14:24 | Hospitalist Progress Note ---
Date of Service November 22, 2021 Assessment & Plan (1) COVID-19: Plan: COVID-19 pneumonia with suspected bactreial superimposition Dexamethasone 6 mg IV every 12 hours, IV Remdesivir Empiric Ceftriaxone 2 g IV daily, Azithromycin 5 mg IV daily Guaifenesin extended release 12 mg p.o. twice daily Vitamin D 5000 international units p.o. every morning Zinc sulfate 220 mg p.o. every morning monitor inflammatory markers, CRP and ferritin still elevated Cultures pending (2) Hypoxia: Plan: Worsening hypoxia Now on 15L oxygen wean as tolerated (3) Secondary bacterial pneumonia: Plan: continue antibiotics as above check procalcitonin discontinue antibiotics if procalcitonin is normal (4) COPD exacerbation: Plan: Combivent Respimat 2 puffs 4 times daily DuoNebs every 2 hours as needed (5) CAD (coronary artery disease): Plan: Continue aspirin 81 mg daily and clopidogrel 75 mg daily (6) Hyperlipidemia: Plan: Continue atorvastatin 40 mg daily Admission and Anticipated Discharge Date Admission Date: November 20, 2021 Subjective patient seen and examined, says shortness of breath is worse today Review of Systems Review of Systems: All systems reviewed are negative, apart from the ones contained in the history. Physical Exam Physical Exam: The patient is awake, alert and oriented 3, well developed and well nourished, normocephalic and atraumatic, lying in bed and in no acute distress. HEENT--PERRL, EOMI, mucous membranes and oropharynx mildly dry Neck--supple. No JVD. No bruits. Thyroid normal, trachea midline, no adenopathy. Heart--normal S1 and S2. No murmurs, rubs or gallops. Lungs--reduced air entry on auscultation Abdomen--normal bowel sounds and soft. Mild epigastric and left sided abdominal pain Extremities--no cyanosis or clubbing. No edema. Dermatologic--normal skin turgor, normal color, no abnormal lymph nodes, no rash. Neurologic--cranial nerves II through XII grossly intact. Rheumatologic--normal range of motion. Psychiatric--normal affect. Results & Data Results & Data ([facility]) Vital Signs (Past 12 Hours) Vital Signs Temp Pulse Pulse Resp BP Pulse Ox 11/22/21 11:20 98.4 F 93 H 22 136/67 94 11/22/21 11:18 89 20 94 11/22/21 08:21 89 20 11/22/21 08:14 97.7 F 111 H 23 125/65 90 11/22/21 08:10 88 20 94 11/22/21 08:00 94 H 11/22/21 04:00 98.2 F 98 H 20 119/65 92 PG Care Time/CCT Total # of Minutes Spent Total Time Spent with Patient: Total time spent is greater than 50% in coordination of care (as documented) at patient's floor/unit and/or counseling patient: Coding Level of Care Code 37884 Subseq Hosp Care Lvl 2 Diagnoses COVID-19 U07.1 Hypoxia R09.02 Secondary bacterial pneumonia J15.9 COPD exacerbation J44.1 CAD (coronary artery disease) I25.10 Hyperlipidemia E78.5 Time Spent (min) 35
[2021-11-22] MEDS: CALCIUM ACETATE 667 MG CAP/TAB PO SCH (17:11)
[2021-11-23] MEDS: cefTRIAXone SODIUM 2,000 MG in DEXTROSE 5% 50 ML IV SCH (01:19)
[2021-11-23 06:23] LABS: Hematocrit (blood only) 37.8 % (42-52); Hemoglobin 13.3 g/dL (14.0-18.0); Immature Granulocytes # (auto) 0.02 K/uL (0.00-0.02); Immature Granulocytes % (auto) 0.2 %; Lymphocytes # (auto) 0.61 K/uL (1.2-3.4); Lymphocytes % (auto) 7.4 %; Mean Corpuscular Hemoglobin 32.4 pg (25-34); Mean Corpuscular Hgb Conc 35.2 g/dL (32-36); Mean Corpuscular Volume 92.2 fL (80-100); Monocytes # (auto) 0.25 K/uL (0.11-0.59); Neutrophils # (auto) 7.38 K/uL (1.4-6.5); Neutrophils % (auto) 89.4 %; Platelet Count 374 K/uL (130-400); RDW Coefficient of Variation 14.2 % (11.5-14.5); RDW Standard Deviation 48.2 fL (36.4-46.3); White Blood Count 8.26 K/uL (4.8-10.8)
[2021-11-23 06:54] LABS: Albumin Level 3.1 gm/dl (3.4-5.0); BUN Creatinine Ratio 35.8 (10-20); Bilirubin,Total 0.8 mg/dl (0.2-1.0); C Reactive Protein 21.23 mg/dl (0-0.5); Calcium 8.3 mg/dl (8.5-10.1); Est GFR (African American) 116.9 ml/min; Est GFR (Non-African American) 100.8 ml/min; Globulin 3.1 gm/dl (2.5-4.0); Potassium 4.3 mmol/L (3.5-5.1); Total Protein 6.2 gm/dl (6.0-8.3)
[2021-11-23] MEDS: IPRATROPIUM BROMIDE HFA INHALER INH SCH ×4 (08:11→19:22)
[2021-11-23] MEDS: ALBUTEROL HFA 8 GM INHALER INH SCH ×4 (08:12→19:22)
[2021-11-23] MEDS: AZITHROMYCIN 500 MG in DEXTROSE 5% 250 ML IV SCH (08:45)
[2021-11-23] MEDS: dexAMETHasone 6 MG in SYRINGE 0 ML IV SCH ×2 (08:46→20:23)
[2021-11-23] MEDS: ZINC SULFATE 220 MG CAPSULE PO SCH (08:51)
[2021-11-23] MEDS: guaiFENesin 600 MG TABCR PO SCH ×2 (08:51→20:13)
[2021-11-23] MEDS: ATORVASTATIN 40 MG TAB PO SCH (08:51)
[2021-11-23] MEDS: ASPIRIN 81 MG ECTAB PO SCH (08:52)
[2021-11-23] MEDS: CLOPIDOGREL BISULFATE 75 MG TAB PO SCH (08:52)
[2021-11-23] MEDS: CHOLECALCIFEROL 5,000 UNITS 125 MCG TAB PO SCH (08:52)
[2021-11-23] MEDS: CALCIUM ACETATE 667 MG CAP/TAB PO SCH ×3 (08:53→17:59)
--- NOTE | 2021-11-23 11:51 | Hospitalist Progress Note ---
Date of Service November 23, 2021 Assessment & Plan (1) COVID-19: Plan: COVID-19 pneumonia with suspected bactreial superimposition Dexamethasone 6 mg IV every 12 hours, IV Remdesivir, today is day 4 Empiric Ceftriaxone 2 g IV daily, Azithromycin 5 mg IV daily Guaifenesin extended release 12 mg p.o. twice daily Vitamin D 5000 international units p.o. every morning Zinc sulfate 220 mg p.o. every morning monitor inflammatory markers, CRP and ferritin still elevated Cultures negative so far (2) Hypoxia: Plan: Currently on 15 L/min through oxygen mask. Although patient subjectively feels less short of breath. We will wean as tolerated. (3) Secondary bacterial pneumonia: Plan: continue antibiotics as above All the cultures are negative, however patient feels overall better. We will continue antibiotics (4) COPD exacerbation: Plan: Combivent Respimat 2 puffs 4 times daily DuoNebs every 2 hours as needed (5) CAD (coronary artery disease): Plan: Continue aspirin 81 mg daily and clopidogrel 75 mg daily (6) Hyperlipidemia: Plan: Continue atorvastatin 40 mg daily Admission and Anticipated Discharge Date Admission Date: November 20, 2021 Subjective patient seen and examined, says shortness of breath is much better today, denies chest pain Review of Systems Review of Systems: All systems reviewed are negative, apart from the ones contained in the history. Physical Exam Physical Exam: The patient is awake, alert and oriented 3, well developed and well nourished, normocephalic and atraumatic, lying in bed and in no acute distress. HEENT--PERRL, EOMI, mucous membranes and oropharynx mildly dry Neck--supple. No JVD. No bruits. Thyroid normal, trachea midline, no adenopathy. Heart--normal S1 and S2. No murmurs, rubs or gallops. Lungs--reduced air entry on auscultation Abdomen--normal bowel sounds and soft. Mild epigastric and left sided abdominal pain Extremities--no cyanosis or clubbing. No edema. Dermatologic--normal skin turgor, normal color, no abnormal lymph nodes, no rash. Neurologic--cranial nerves II through XII grossly intact. Rheumatologic--normal range of motion. Psychiatric--normal affect. Results & Data Results & Data ([facility]) Vital Signs (Past 12 Hours) Vital Signs Temp Pulse Resp BP BP Pulse Ox 11/23/21 11:12 97.7 F 87 16 127/70 89 L 11/23/21 10:57 78 20 89 L 11/23/21 08:12 73 20 90 11/23/21 07:24 97.7 F 67 20 123/69 92 11/23/21 04:57 73 18 91 11/23/21 00:00 98.2 F 67 20 114/61 93 PG Care Time/CCT Total # of Minutes Spent Total Time Spent with Patient: Total time spent is greater than 50% in coordination of care (as documented) at patient's floor/unit and/or counseling patient: Coding Level of Care Code 02401 Subseq Hosp Care Lvl 2 Diagnoses COVID-19 U07.1 Hypoxia R09.02 Secondary bacterial pneumonia J15.9 COPD exacerbation J44.1 CAD (coronary artery disease) I25.10 Hyperlipidemia E78.5 Time Spent (min) 35
[2021-11-24] MEDS: REMDESIVIR 100 MG in SODIUM CHLORIDE 0.9% 230 ML IV SCH (00:05)
[2021-11-24] MEDS: cefTRIAXone SODIUM 2,000 MG in DEXTROSE 5% 50 ML IV SCH (01:30)
[2021-11-24] MEDS: ALBUTEROL HFA 8 GM INHALER INH SCH (07:25)
[2021-11-24] MEDS: IPRATROPIUM BROMIDE HFA INHALER INH SCH (07:25)
[2021-11-24 08:14] LABS: Hematocrit (blood only) 36.4 % (42-52); Hemoglobin 12.7 g/dL (14.0-18.0); Mean Corpuscular Hemoglobin 31.8 pg (25-34); Mean Corpuscular Hgb Conc 34.9 g/dL (32-36); Mean Platelet Volume 9.9 fL (7.4-10.4); Platelet Count 380 K/uL (130-400); RDW Coefficient of Variation 13.9 % (11.5-14.5); RDW Standard Deviation 46.5 fL (36.4-46.3); White Blood Count 10.32 K/uL (4.8-10.8)
[2021-11-24] MEDS: dexAMETHasone 6 MG in SYRINGE 0 ML IV SCH ×2 (09:48→20:44)
[2021-11-24] MEDS: AZITHROMYCIN 500 MG in DEXTROSE 5% 250 ML IV SCH (09:49)
[2021-11-24] MEDS: CHOLECALCIFEROL 5,000 UNITS 125 MCG TAB PO SCH (09:53)
[2021-11-24] MEDS: guaiFENesin 600 MG TABCR PO SCH ×2 (09:53→20:43)
[2021-11-24] MEDS: CLOPIDOGREL BISULFATE 75 MG TAB PO SCH (09:53)
[2021-11-24] MEDS: ASPIRIN 81 MG ECTAB PO SCH (09:54)
[2021-11-24] MEDS: ATORVASTATIN 40 MG TAB PO SCH (09:54)
[2021-11-24] MEDS: ZINC SULFATE 220 MG CAPSULE PO SCH (09:55)
[2021-11-24] MEDS: CALCIUM ACETATE 667 MG CAP/TAB PO SCH ×3 (09:55→17:19)
[2021-11-24] MEDS ORDERED: ALBUTEROL HFA 8 GM INHALER INH PRN (10:23)
[2021-11-24] MEDS ORDERED: IPRATROPIUM BROMIDE HFA INHALER INH PRN (10:24)
[2021-11-24 12:09] LABS: BUN Creatinine Ratio 32.4 (10-20); C Reactive Protein 8.27 mg/dl (0-0.5); Creatinine Clr Calc Pharmacy 112.4 ml/min; Est GFR (African American) 112.2 ml/min; Est GFR (Non-African American) 96.8 ml/min
--- NOTE | 2021-11-24 12:42 | Hospitalist Progress Note ---
Date of Service November 24, 2021 Assessment & Plan (1) COVID-19: Plan: COVID-19 pneumonia with suspected bacterial superimposition Dexamethasone 6 mg IV every 12 hours, IV Remdesivir, today is day 5 Empiric Ceftriaxone 2 g IV daily, Azithromycin 5 mg IV daily Guaifenesin extended release 12 mg p.o. twice daily Vitamin D 5000 international units p.o. every morning Zinc sulfate 220 mg p.o. every morning Inflammatory markers continue to improve Cultures negative so far (2) Acute respiratory failure with hypoxia: Plan: Improving Currently on 9 L/min through oxygen mask. Was on 15 yesterday Although patient subjectively feels less short of breath. We will wean as tolerated. (3) Secondary bacterial pneumonia: Plan: continue antibiotics as above All the cultures are negative, however patient feels overall better. We will continue antibiotics (4) COPD exacerbation: Plan: Combivent Respimat 2 puffs 4 times daily DuoNebs every 2 hours as needed (5) CAD (coronary artery disease): Plan: Continue aspirin 81 mg daily and clopidogrel 75 mg daily (6) Hyperlipidemia: Plan: Continue atorvastatin 40 mg daily (7) Hypoxia: Admission and Anticipated Discharge Date Admission Date: November 20, 2021 Subjective patient seen and examined, says shortness of breath is much better today, denies chest pain Review of Systems Review of Systems: All systems reviewed are negative, apart from the ones contained in the history. Physical Exam Physical Exam: The patient is awake, alert and oriented 3, well developed and well nourished, normocephalic and atraumatic, lying in bed and in no acute distress. HEENT--PERRL, EOMI, mucous membranes and oropharynx mildly dry Neck--supple. No JVD. No bruits. Thyroid normal, trachea midline, no adenopathy. Heart--normal S1 and S2. No murmurs, rubs or gallops. Lungs--reduced air entry on auscultation Abdomen--normal bowel sounds and soft. Mild epigastric and left sided abdominal pain Extremities--no cyanosis or clubbing. No edema. Dermatologic--normal skin turgor, normal color, no abnormal lymph nodes, no rash. Neurologic--cranial nerves II through XII grossly intact. Rheumatologic--normal range of motion. Psychiatric--normal affect. Results & Data Results & Data ([facility]) Vital Signs (Past 12 Hours) Vital Signs Temp Pulse Pulse Resp BP BP Pulse Ox 11/24/21 11:16 97.9 F 84 20 129/58 L 90 11/24/21 07:01 97.9 F 68 18 128/85 93 11/24/21 02:59 97.9 F 65 20 126/77 90 PG Care Time/CCT Total # of Minutes Spent Total Time Spent with Patient: Total time spent is greater than 50% in coordination of care (as documented) at patient's floor/unit and/or counseling patient: Coding Level of Care Code 96208 Subseq Hosp Care Lvl 2 Diagnoses COVID-19 U07.1 Hypoxia R09.02 Secondary bacterial pneumonia J15.9 COPD exacerbation J44.1 CAD (coronary artery disease) I25.10 Hyperlipidemia E78.5 Acute respiratory failure with hypoxia J96.01 Time Spent (min) 35
[2021-11-25] MEDS: cefTRIAXone SODIUM 2,000 MG in DEXTROSE 5% 50 ML IV SCH (00:47)
[2021-11-25 08:23] LABS: Hematocrit (blood only) 39.5 % (42-52); Hemoglobin 13.6 g/dL (14.0-18.0); Mean Corpuscular Hemoglobin 31.6 pg (25-34); Mean Corpuscular Hgb Conc 34.4 g/dL (32-36); Mean Corpuscular Volume 91.6 fL (80-100); Platelet Count 396 K/uL (130-400); RDW Standard Deviation 47.3 fL (36.4-46.3); Red Blood Count 4.31 M/uL (4.7-6.1); White Blood Count 9.76 K/uL (4.8-10.8)
[2021-11-25 08:52] LABS: BUN Creatinine Ratio 30.3 (10-20); C Reactive Protein 4.41 mg/dl (0-0.5); Calcium 8.3 mg/dl (8.5-10.1); Creatinine Clr Calc Pharmacy 105.8 ml/min; Est GFR (Non-African American) 95.7 ml/min; Potassium 4.3 mmol/L (3.5-5.1)
[2021-11-25] MEDS: dexAMETHasone 6 MG in SYRINGE 0 ML IV SCH ×2 (09:24→20:21)
[2021-11-25] MEDS: AZITHROMYCIN 500 MG in DEXTROSE 5% 250 ML IV SCH (09:26)
[2021-11-25] MEDS: guaiFENesin 600 MG TABCR PO SCH ×2 (09:29→20:20)
[2021-11-25] MEDS: CALCIUM ACETATE 667 MG CAP/TAB PO SCH ×3 (09:29→17:55)
[2021-11-25] MEDS: ASPIRIN 81 MG ECTAB PO SCH (09:29)
[2021-11-25] MEDS: ATORVASTATIN 40 MG TAB PO SCH (09:30)
[2021-11-25] MEDS: CLOPIDOGREL BISULFATE 75 MG TAB PO SCH (09:30)
[2021-11-25] MEDS: ZINC SULFATE 220 MG CAPSULE PO SCH (09:30)
[2021-11-25] MEDS: CHOLECALCIFEROL 5,000 UNITS 125 MCG TAB PO SCH (09:30)
--- NOTE | 2021-11-25 11:35 | Hospitalist Progress Note ---
Date of Service November 25, 2021 Assessment & Plan (1) COVID-19: Plan: COVID-19 pneumonia with suspected bacterial superimposition Dexamethasone 6 mg IV every 12 hours, has completed a course of IV Remdesivir Empiric Ceftriaxone 2 g IV daily, Azithromycin 5 mg IV daily, continue till 11/28 Guaifenesin extended release 12 mg p.o. twice daily Vitamin D 5000 international units p.o. every morning Zinc sulfate 220 mg p.o. every morning Inflammatory markers continue to improve Cultures negative so far (2) Acute respiratory failure with hypoxia: Plan: Continues to improve Currently on 8 L/min through oxygen mask. Gets short of breath with exertion, but recovers quickly We will wean as tolerated. (3) Secondary bacterial pneumonia: Plan: continue antibiotics as above, till 11/28 (4) COPD exacerbation: Plan: Combivent Respimat 2 puffs 4 times daily DuoNebs every 2 hours as needed (5) CAD (coronary artery disease): Plan: Continue aspirin 81 mg daily and clopidogrel 75 mg daily (6) Hyperlipidemia: Plan: Continue atorvastatin 40 mg daily (7) Hypoxia: Admission and Anticipated Discharge Date Admission Date: November 20, 2021 Subjective patient seen and examined, says shortness of breath is much better today, denies chest pain Review of Systems Review of Systems: All systems reviewed are negative, apart from the ones contained in the history. Physical Exam Physical Exam: The patient is awake, alert and oriented 3, well developed and well nourished, normocephalic and atraumatic, lying in bed and in no acute distress. HEENT--PERRL, EOMI, mucous membranes and oropharynx mildly dry Neck--supple. No JVD. No bruits. Thyroid normal, trachea midline, no adenopathy. Heart--normal S1 and S2. No murmurs, rubs or gallops. Lungs--reduced air entry on auscultation Abdomen--normal bowel sounds and soft. Mild epigastric and left sided abdominal pain Extremities--no cyanosis or clubbing. No edema. Dermatologic--normal skin turgor, normal color, no abnormal lymph nodes, no rash. Neurologic--cranial nerves II through XII grossly intact. Rheumatologic--normal range of motion. Psychiatric--normal affect. Results & Data Results & Data ([facility]) Vital Signs (Past 12 Hours) Vital Signs Temp Pulse Pulse Pulse Resp BP Pulse Ox 11/25/21 07:08 97.7 F 66 19 130/75 90 11/25/21 03:00 98.2 F 78 20 140/68 93 11/25/21 00:30 72 PG Care Time/CCT Total # of Minutes Spent Total Time Spent with Patient: Total time spent is greater than 50% in coordination of care (as documented) at patient's floor/unit and/or counseling patient: Coding Level of Care Code 29369 Subseq Hosp Care Lvl 2 Diagnoses COVID-19 U07.1 Acute respiratory failure with hypoxia J96.01 Secondary bacterial pneumonia J15.9 COPD exacerbation J44.1 CAD (coronary artery disease) I25.10 Hyperlipidemia E78.5 Hypoxia R09.02 Time Spent (min) 35
[2021-11-25 15:36] LABS: Ferritin 560.3 ng/ml (8-388)
[2021-11-26] MEDS: cefTRIAXone SODIUM 2,000 MG in DEXTROSE 5% 50 ML IV SCH (00:33)
[2021-11-26] MEDS: dexAMETHasone 6 MG in SYRINGE 0 ML IV SCH ×2 (07:45→20:08)
[2021-11-26] MEDS: AZITHROMYCIN 500 MG in DEXTROSE 5% 250 ML IV SCH (07:46)
[2021-11-26] MEDS: CALCIUM ACETATE 667 MG CAP/TAB PO SCH ×3 (07:49→17:02)
[2021-11-26] MEDS: CHOLECALCIFEROL 5,000 UNITS 125 MCG TAB PO SCH (07:49)
[2021-11-26] MEDS: ASPIRIN 81 MG ECTAB PO SCH (07:49)
[2021-11-26] MEDS: guaiFENesin 600 MG TABCR PO SCH ×2 (07:49→21:09)
[2021-11-26] MEDS: ATORVASTATIN 40 MG TAB PO SCH (07:49)
[2021-11-26] MEDS: CLOPIDOGREL BISULFATE 75 MG TAB PO SCH (07:49)
[2021-11-26] MEDS: ZINC SULFATE 220 MG CAPSULE PO SCH (07:50)
[2021-11-26 07:51] LABS: Hematocrit (blood only) 38.2 % (42-52); Hemoglobin 13.3 g/dL (14.0-18.0); Mean Corpuscular Hgb Conc 34.8 g/dL (32-36); Mean Corpuscular Volume 91.8 fL (80-100); Mean Platelet Volume 9.9 fL (7.4-10.4); Platelet Count 412 K/uL (130-400); RDW Coefficient of Variation 14.2 % (11.5-14.5); RDW Standard Deviation 48.2 fL (36.4-46.3); Red Blood Count 4.16 M/uL (4.7-6.1); White Blood Count 10.56 K/uL (4.8-10.8)
[2021-11-26 08:22] LABS: BUN Creatinine Ratio 29.3 (10-20); C Reactive Protein 2.64 mg/dl (0-0.5); Calcium 8.4 mg/dl (8.5-10.1); Est GFR (African American) 111.6 ml/min; Est GFR (Non-African American) 96.3 ml/min; Potassium 4.2 mmol/L (3.5-5.1)
--- NOTE | 2021-11-26 21:19 | Hospitalist Progress Note ---
Date of Service November 26, 2021 Assessment & Plan (1) Acute respiratory failure with hypoxia: Plan: 2nd to COVID-19 pneumonia, COPD exacerbation, +/- bacterial superinfection. Today is day #13 of steroids (first day was 11/14/21 during his 1st admit). Today is day #6 of azithromycin and rocephin; can stop the azithromycin. Continue rocephin 1 more day then d/c. CTA chest recently with ?PF/ILD. May be contributing to overall clinical picture. Will check a BNP in am to ensure radiographic findings are not also due to some element of CHF but my suspicion is low. Cont to wean NC O2 as tolerated. Cont pulmonary toilet. (2) Acute exacerbation of chronic obstructive pulmonary disease (COPD): Plan: Day #13 of IV steroids. Remains on BID dosing of dexamethasone 6mg. Would start weaning over 5-7 days to off as tolerated. Cont inhalers. (3) Pneumonia due to COVID-19 virus: Plan: Slowly resolving. Peak O2 requirements 15 L. Now <10. Wean steroids. Pulm toilet. Finish abx for ?bacterial superinfection. CXR in am. Wean NC O2. (4) Abnormal chest CT: Plan: 11/14/21 CTA without PE but emphysema and fibrotic changes seen. He may have superimposed ILD/PF on top of COPD. Needs pulm follow-up shortly after d/c. Suspect he is going to need NC O2 at discharge. (5) Secondary bacterial pneumonia: Plan: suspected. Day #6 rocephin - 1 more day then d/c. d/c azithromycin. (6) Hyperlipidemia: Plan: cont lipitor (7) Hypertension: Plan: controlled w/o meds (8) CAD (coronary artery disease): Plan: no ischemic sx's at this time trop neg at admission cont statin, asa, plavix (9) GERD (gastroesophageal reflux disease): Plan: given the presence of DAPT for #8 consider PPI for GI proph, at least while on high-dose steroids, but perhaps even indefinitely (10) Hyponatremia: Plan: check serum osm, urine osm, urine Na bmp am (11) DVT prophylaxis: Plan: lovenox 40mg BID Plan: PT, OT Admission and Anticipated Discharge Date Admission Date: November 20, 2021 Subjective feeling MUCH better cough, dyspnea, chest tightness (had latter upon re-admission to our hospital) - all improved or resolved eating well moving bowels he was upset today because the [place] [facility] wanted him to go to the [place] for admission - he declined such, was very irritable about this he wants to stay here and finish his course no new complaints tele normal overnight Review of Systems Review of Systems: gen - no fevers, weakness improved cv - no cp, no orthopnea pulm - STARR remains GI - no pain Physical Exam Physical Exam: gen - NAD, looks good neck - no JVD mouth - MMM, no thrush CV - RRR, s1 s2 lungs - mild end-exp wheezes, rales bases, no increased work of breathing abd - soft NT ND BS+ ext - no edema psych - a/o x 3 Results & Data Results & Data ([facility]) Vital Signs (Past 12 Hours) Vital Signs Temp Pulse Pulse Pulse Resp BP Pulse Ox 11/26/21 20:04 36.4 C L 79 22 144/82 H 94 11/26/21 15:44 36.5 C 77 18 165/91 H 89 L 11/26/21 15:31 88 11/26/21 11:16 36.5 C 70 19 135/68 93 11/26/21 10:30 20 92 Laboratory Results labs from this admission reviewed - Na mildly low imaging including CTA reviewed PG Care Time/CCT Total # of Minutes Spent Total Time Spent with Patient: Total time spent is greater than 50% in coordination of care (as documented) at patient's floor/unit and/or counseling patient: Coding Level of Care Code 51177 Subseq Hosp Care Lvl 2 Diagnoses Acute respiratory failure with hypoxia J96.01 Acute exacerbation of chronic obstructive pulmonary disease (COPD) J44.1 Pneumonia due to COVID-19 virus U07.1; J12.[address] R93.89 Secondary bacterial pneumonia J15.9 Hyperlipidemia E78.5 Hypertension I10 CAD (coronary artery disease) I25.10 GERD (gastroesophageal reflux disease) K21.9 DVT prophylaxis Z29.9 Hyponatremia E87.1
[2021-11-26] MEDS: ENOXAPARIN INJ 40 MG/0.4 ML SYR SQ SCH (22:54)
[2021-11-27] MEDS: cefTRIAXone SODIUM 2,000 MG in DEXTROSE 5% 50 ML IV SCH (00:12)
--- NOTE | 2021-11-27 07:10 | XRay Report ---
XR chest 1V portable CLINICAL HISTORY: covid-19 pneumonia, hypoxia COMPARISON STUDY: Chest CT November 14, 2021. Chest radiograph November 20, 2021. FINDINGS: Postoperative findings within the cervical spine are incidentally noted. There is no pneumo thorax or pleural effusion. Emphysema is present. Interstitial thickening with distortion is noted wi thin the lungs, slightly greater within the right lung. Bilateral airspace opacities have slightly pr ogressed. Cardiomediastinal silhouette is stable. There is no evidence for pulmonary edema. IMPRESSION: 1. Increase in bilateral airspace opacities. This may reflect viral pneumonia. 2. Interstitial thickening with distortion within the lungs, greater within the right lung. This may reflect pulmonary fibrosis superimposed upon emphysema. ACT 112: Negative or not required by law. Electronically signed by: Jamie Fried M.D. 11/27/2021 7:09 AM
[2021-11-27] MEDS: CLOPIDOGREL BISULFATE 75 MG TAB PO SCH (08:01)
[2021-11-27] MEDS: CALCIUM ACETATE 667 MG CAP/TAB PO SCH ×3 (08:01→17:18)
[2021-11-27] MEDS: ATORVASTATIN 40 MG TAB PO SCH (08:01)
[2021-11-27] MEDS: ZINC SULFATE 220 MG CAPSULE PO SCH (08:01)
[2021-11-27] MEDS: CHOLECALCIFEROL 5,000 UNITS 125 MCG TAB PO SCH (08:01)
[2021-11-27] MEDS: guaiFENesin 600 MG TABCR PO SCH ×2 (08:01→20:13)
[2021-11-27] MEDS: ASPIRIN 81 MG ECTAB PO SCH (08:01)
[2021-11-27] MEDS: ENOXAPARIN INJ 40 MG/0.4 ML SYR SQ SCH ×2 (08:02→20:12)
[2021-11-27] MEDS: dexAMETHasone 6 MG in SYRINGE 0 ML IV SCH ×2 (08:02→20:13)
[2021-11-27 09:01] LABS: BUN Creatinine Ratio 29.7 (10-20); Calcium 8.3 mg/dl (8.5-10.1); Creatinine Clr Calc Pharmacy 108.3 ml/min; Est GFR (African American) 112.2 ml/min; Est GFR (Non-African American) 96.8 ml/min; Potassium 4.2 mmol/L (3.5-5.1)
[2021-11-27] MEDS: AZITHROMYCIN 500 MG in DEXTROSE 5% 250 ML IV SCH (10:04)
--- NOTE | 2021-11-27 16:41 | Hospitalist Progress Note ---
Date of Service November 27, 2021 Assessment & Plan (1) Acute respiratory failure with hypoxia: Plan: / COVID19 PNA, COPD exacerbation, +/- bacterial superinfection. - Steroids stdarted 11/14/21 during his 1st admit - Rocephin 7 days azithromycin 6 days completed 11/27, discontinued -CTA chest: ?PF/ILD. -Cont to wean NC O2 as tolerated. -Cont pulmonary toilet. (2) Acute exacerbation of chronic obstructive pulmonary disease (COPD): Plan: - Day #13 of IV steroids. - Wean from 6mg BID to 4mg BID 11/28 - If doing well switch to 6mg daily then continue wean over ~1 week - Continue REVENUE [employer]OR inhalers (3) Pneumonia due to COVID-19 virus: Plan: -Slowly resolving. -Peak O2 requirements 15 L. -Now <10L Wean steroids as above -Pulm toilet. - Completed abx as above 11/27 - CXR 11/27: Increase in bilateral airspace opacities. This may reflect viral pneumonia. Interstitial thickening with distortion within the lungs, greater within the right lung. This may reflect pulmonary fibrosis superimposed upon emphysema. (4) Abnormal chest CT: Plan: 11/14/21 CTA without PE but emphysema and fibrotic changes seen. He may have superimposed ILD/PF on top of COPD. Needs pulm follow-up shortly after d/c. Suspect he is going to need NC O2 at discharge. (5) Secondary bacterial pneumonia: Plan: suspected. - abx as above (6) Hyperlipidemia: Plan: cont REVENUE DIRECTOR statin (7) Hypertension: Plan: controlled w/o meds (8) CAD (coronary artery disease): Plan: no ischemic sx's at this time trop neg at admission cont statin, asa, plavix (9) GERD (gastroesophageal reflux disease): Plan: - On DAPT - Continue PPI/famotidine (10) Hyponatremia: Plan: -?SIADH of PNA - 131 today - Urine/serum osm pending - Trend, consider fluid restrict/salt tab based on above (11) DVT prophylaxis: Plan: lovenox 40mg BID Admission and Anticipated Discharge Date Admission Date: November 20, 2021 Subjective Seen at bedside. He feels he is slowly improving, still short of breath with exertion. No nausea/vomiting. Last BM yesterday. -N/-V/-Ab Pain. No chest pain, chest pressure. some rib pain when coughing. No other questions or concerns. Review of Systems Review of Systems: All systems reviewed & are unremarkable except as noted in Subjective Physical Exam Physical Exam: General: A&Ox3. NAD. Cooperative. HEENT: Atraumatic, normocephalic. Vision/hearing grossly intact. Pulm: Mid R midlung end expiratory wheeze, otherwise CTAB A&P. -rales, -rhonchi. Symmetrical chest rise. No increased work of breathing. No respiratory distress. Cardiac: RRR, -mrg. Radial pulses intact and symmetrical. Abdominal: Nontender, nondistended, soft. BS present. Results & Data Results & Data ([facility]) Vital Signs (Past 12 Hours) Vital Signs Temp Pulse Pulse Pulse Resp BP BP 11/27/21 15:13 36.4 C L 78 17 138/66 11/27/21 12:33 63 11/27/21 11:46 36.8 C 80 18 128/70 11/27/21 09:58 18 11/27/21 08:31 94 H 11/27/21 07:20 36.7 C 61 21 134/76 Pulse Ox 11/27/21 15:13 90 11/27/21 12:33 11/27/21 11:46 96 11/27/21 09:58 88 L 11/27/21 08:31 11/27/21 07:20 97 PG Care Time/CCT Total # of Minutes Spent Total Time Spent with Patient: Total time spent is greater than 50% in coordination of care (as documented) at patient's floor/unit and/or counseling patient: Coding Level of Care Code 48582 Subseq Hosp Care Lvl 2 Diagnoses Acute respiratory failure with hypoxia J96.01 Acute exacerbation of chronic obstructive pulmonary disease (COPD) J44.1 Pneumonia due to COVID-19 virus U07.1; J12.[address] R93.89 Secondary bacterial pneumonia J15.9 Hyperlipidemia E78.5 Hypertension I10 CAD (coronary artery disease) I25.10 GERD (gastroesophageal reflux disease) K21.9 Hyponatremia E87.1 DVT prophylaxis Z29.9
[2021-11-27] MEDS: FAMOTIDINE 20 MG in SYRINGE 3 ML IV SCH (18:12)
[2021-11-27] MEDS: PANTOprazole 40 MG TAB PO SCH (18:12)
[2021-11-28 08:28] LABS: Hematocrit (blood only) 37.1 % (42-52); Hemoglobin 12.7 g/dL (14.0-18.0); Immature Granulocytes # (auto) 0.02 K/uL (0.00-0.02); Immature Granulocytes % (auto) 0.2 %; Lymphocytes # (auto) 1.08 K/uL (1.2-3.4); Lymphocytes % (auto) 8.9 %; Mean Corpuscular Hemoglobin 31.7 pg (25-34); Mean Corpuscular Hgb Conc 34.2 g/dL (32-36); Mean Corpuscular Volume 92.5 fL (80-100); Monocytes # (auto) 0.69 K/uL (0.11-0.59); Monocytes % (auto) 5.7 %; Neutrophils # (auto) 10.28 K/uL (1.4-6.5); Neutrophils % (auto) 85.2 %; Platelet Count 360 K/uL (130-400); RDW Standard Deviation 47.9 fL (36.4-46.3); Red Blood Count 4.01 M/uL (4.7-6.1); White Blood Count 12.07 K/uL (4.8-10.8)
[2021-11-28] MEDS: dexAMETHasone 6 MG in SYRINGE 0 ML IV SCH (08:51)
[2021-11-28] MEDS: ATORVASTATIN 40 MG TAB PO SCH (08:52)
[2021-11-28] MEDS: CALCIUM ACETATE 667 MG CAP/TAB PO SCH ×3 (08:52→20:08)
[2021-11-28] MEDS: ENOXAPARIN INJ 40 MG/0.4 ML SYR SQ SCH ×2 (08:52→20:09)
[2021-11-28] MEDS: PANTOprazole 40 MG TAB PO SCH (08:52)
[2021-11-28] MEDS: ZINC SULFATE 220 MG CAPSULE PO SCH (08:52)
[2021-11-28] MEDS: ASPIRIN 81 MG ECTAB PO SCH (08:53)
[2021-11-28] MEDS: CLOPIDOGREL BISULFATE 75 MG TAB PO SCH (08:53)
[2021-11-28] MEDS: CHOLECALCIFEROL 5,000 UNITS 125 MCG TAB PO SCH (08:53)
[2021-11-28] MEDS: guaiFENesin 600 MG TABCR PO SCH ×2 (08:53→20:11)
[2021-11-28] MEDS: FAMOTIDINE 20 MG in SYRINGE 3 ML IV SCH (09:00)
[2021-11-28 09:12] LABS: BUN Creatinine Ratio 30.3 (10-20); Calcium 7.9 mg/dl (8.5-10.1); Est GFR (Non-African American) 95.7 ml/min; Potassium 4.5 mmol/L (3.5-5.1)
--- NOTE | 2021-11-28 13:05 | Hospitalist Progress Note ---
Date of Service November 28, 2021 Assessment & Plan (1) Acute respiratory failure with hypoxia: Plan: 12/01 COVID19 PNA, COPD exacerbation, +/- bacterial superinfection. - Steroids started 11/14/21 during his 1st admit - Rocephin 7 days azithromycin 6 days completed 11/27, discontinued -CTA chest: ?PF/ILD. -Cont to wean NC O2 as tolerated. -Cont pulmonary toilet. (2) Acute exacerbation of chronic obstructive pulmonary disease (COPD): Plan: -Steroids started 11/14 as above - Wean from 6mg BID to 4mg BID 11/28 - If doing well switch to 6mg daily then continue wean over ~1 week - Continue [employer] inhalers (3) Pneumonia due to COVID-19 virus: Plan: -Slowly resolving. -Peak O2 requirements 15 L. -Now <10L Wean steroids as above -Pulm toilet. - Completed abx as above 11/27 - CXR 11/27: Increase in bilateral airspace opacities. This may reflect viral pneumonia. Interstitial thickening with distortion within the lungs, greater within the right lung. This may reflect pulmonary fibrosis superimposed upon emphysema. (4) Abnormal chest CT: Plan: 11/14/21 CTA without PE but emphysema and fibrotic changes seen. He may have superimposed ILD/PF on top of COPD. Needs pulm follow-up shortly after d/c. Suspect he is going to need NC O2 at discharge. Once oxygen requirements are down to 4 L/stable and steroids moved to daily we will order to extend. (5) Secondary bacterial pneumonia: Plan: suspected. - abx as above (6) Hyperlipidemia: Plan: cont [employer] statin (7) Hypertension: Plan: controlled w/o meds (8) CAD (coronary artery disease): Plan: no ischemic sx's at this time trop neg at admission cont statin, asa, plavix (9) GERD (gastroesophageal reflux disease): Plan: - On DAPT - Continue PPI/famotidine (10) Hyponatremia: Plan: -?SIADH of PNA - 131 today -Urine osmolarity high, relatively high urine sodium, low plasma tonicity consistent with SIADH -Fluid restrict, may consider salt tabs based on trend BMP daily (11) DVT prophylaxis: Plan: lovenox 40mg BID Admission and Anticipated Discharge Date Admission Date: November 20, 2021 Subjective Seen at bedside, somewhat frustrated by slow recovery from Covid but otherwise no acute concerns overnight. He reports he does get short of breath and desaturate easily with exertion. Cough persists. No shortness of breath at time of assessment. No chest pain, chest pressure time of assessment. No fever/chills overnight. Oxygen requirements are slowly downtrending. Review of Systems Review of Systems: All systems reviewed & are unremarkable except as noted in Subjective Physical Exam Physical Exam: General: A&Ox3. NAD. Cooperative. HEENT: Atraumatic, normocephalic. Vision/hearing grossly intact. Pulm: Scattered end expiratory wheeze of the right lung improved from prior otherwise CTAB A&P. -rales, -rhonchi. Symmetrical chest rise. No increased work of breathing. No respiratory distress. Cardiac: RRR, -mrg. Radial pulses intact and symmetrical. Abdominal: Nontender, nondistended, soft. BS present. Results & Data Results & Data ([facility]) Vital Signs (Past 12 Hours) Vital Signs Temp Pulse Pulse Pulse Resp BP Pulse Ox 11/28/21 11:56 36.0 C L 70 19 118/66 90 11/28/21 10:16 65 11/28/21 08:13 76 11/28/21 07:35 36.4 C L 80 19 131/74 91 11/28/21 05:41 36.4 C L 76 22 125/65 89 L PG Care Time/CCT Total # of Minutes Spent Total Time Spent with Patient: Total time spent is greater than 50% in coordination of care (as documented) at patient's floor/unit and/or counseling patient: Coding Level of Care Code 50046 Subseq Hosp Care Lvl 2 Diagnoses Acute respiratory failure with hypoxia J96.01 Acute exacerbation of chronic obstructive pulmonary disease (COPD) J44.1 Pneumonia due to COVID-19 virus U07.1; J12.[address] R93.89 Secondary bacterial pneumonia J15.9 Hyperlipidemia E78.5 Hypertension I10 CAD (coronary artery disease) I25.10 GERD (gastroesophageal reflux disease) K21.9 Hyponatremia E87.1 DVT prophylaxis Z29.9
[2021-11-28] MEDS: dexAMETHasone 4 MG in SYRINGE 0 ML IV SCH (20:09)
[2021-11-28] MEDS: FAMOTIDINE 20 MG TAB PO SCH (21:59)
[2021-11-29 06:45] LABS: Hematocrit (blood only) 36.9 % (42-52); Hemoglobin 12.5 g/dL (14.0-18.0); Immature Granulocytes # (auto) 0.03 K/uL (0.00-0.02); Immature Granulocytes % (auto) 0.3 %; Lymphocytes # (auto) 1.02 K/uL (1.2-3.4); Mean Corpuscular Hemoglobin 31.5 pg (25-34); Mean Corpuscular Hgb Conc 33.9 g/dL (32-36); Mean Corpuscular Volume 92.9 fL (80-100); Mean Platelet Volume 9.8 fL (7.4-10.4); Monocytes # (auto) 0.77 K/uL (0.11-0.59); Monocytes % (auto) 6.8 %; Neutrophils # (auto) 9.57 K/uL (1.4-6.5); Neutrophils % (auto) 83.9 %; Platelet Count 348 K/uL (130-400); RDW Coefficient of Variation 14.2 % (11.5-14.5); RDW Standard Deviation 48.4 fL (36.4-46.3); Red Blood Count 3.97 M/uL (4.7-6.1); White Blood Count 11.39 K/uL (4.8-10.8)
[2021-11-29 07:12] LABS: BUN Creatinine Ratio 37.7 (10-20); Calcium 7.9 mg/dl (8.5-10.1); Creatinine Clr Calc Pharmacy 104.4 ml/min; Est GFR (African American) 110.4 ml/min; Est GFR (Non-African American) 95.2 ml/min; Potassium 4.2 mmol/L (3.5-5.1)
[2021-11-29] MEDS: dexAMETHasone 4 MG in SYRINGE 0 ML IV SCH ×2 (08:23→20:12)
[2021-11-29] MEDS: guaiFENesin 600 MG TABCR PO SCH ×2 (08:23→20:12)
[2021-11-29] MEDS: CHOLECALCIFEROL 5,000 UNITS 125 MCG TAB PO SCH (08:24)
[2021-11-29] MEDS: ATORVASTATIN 40 MG TAB PO SCH (08:24)
[2021-11-29] MEDS: ASPIRIN 81 MG ECTAB PO SCH (08:24)
[2021-11-29] MEDS: PANTOprazole 40 MG TAB PO SCH (08:24)
[2021-11-29] MEDS: CALCIUM ACETATE 667 MG CAP/TAB PO SCH ×3 (08:24→17:03)
[2021-11-29] MEDS: CLOPIDOGREL BISULFATE 75 MG TAB PO SCH (08:25)
[2021-11-29] MEDS: ENOXAPARIN INJ 40 MG/0.4 ML SYR SQ SCH ×2 (08:25→20:13)
[2021-11-29] MEDS: ZINC SULFATE 220 MG CAPSULE PO SCH (08:25)
[2021-11-29] MEDS: FAMOTIDINE 20 MG TAB PO SCH ×2 (09:24→20:12)
--- NOTE | 2021-11-29 16:32 | Hospitalist Progress Note ---
Date of Service November 29, 2021 Assessment & Plan (1) Acute respiratory failure with hypoxia: Plan: 12/01 COVID19 PNA, COPD exacerbation, +/- bacterial superinfection. - Steroids started 11/14/21 during his 1st admit - Rocephin 7 days azithromycin 6 days completed 11/27, discontinued -CTA chest: ?PF/ILD. -Cont to wean NC O2 as tolerated. -Cont pulmonary toilet. O2 Requirement slowly weaning, progressing to 4-6 L on Oxymask today, hopefully will be able to transition to nasal cannula within the next 24 to 48 hours (2) Acute exacerbation of chronic obstructive pulmonary disease (COPD): Plan: -Steroids started 11/14 as above - Wean from 6mg BID to 4mg BID 11/28 - If doing well switch to 6mg daily 11/30 then continue wean over ~1 week - Continue CAR RUNNER inhalers (3) Pneumonia due to COVID-19 virus: Plan: -Slowly resolving. -Peak O2 requirements 15 L. -Now <10L Wean steroids as above -Pulm toilet. - Completed abx as above 11/27 - CXR 11/27: Increase in bilateral airspace opacities. This may reflect viral pneumonia. Interstitial thickening with distortion within the lungs, greater within the right lung. This may reflect pulmonary fibrosis superimposed upon emphysema. No evidence of pulmonary edema on repeat chest x-ray, defer Lasix at this time (4) Abnormal chest CT: Plan: 11/14/21 CTA without PE but emphysema and fibrotic changes seen. He may have superimposed ILD/PF on top of COPD. Needs pulm follow-up shortly after d/c. Suspect he is going to need NC O2 at discharge. Once oxygen requirements are down to 4 L/stable and steroids moved to daily can look towards discharge with close follow-up (5) Secondary bacterial pneumonia: Plan: suspected. 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 (7) Hypertension: Plan: controlled w/o meds (8) CAD (coronary artery disease): Plan: no ischemic sx's at this time trop neg at admission cont statin, asa, plavix (9) GERD (gastroesophageal reflux disease): Plan: - On DAPT - Continue PPI/famotidine (10) Hyponatremia: Plan: -?SIADH of PNA -Improving -Urine osmolarity high, relatively high urine sodium, low plasma tonicity consistent with SIADH -Fluid restrict, may consider salt tabs based on trend BMP daily (11) DVT prophylaxis: Plan: lovenox 40mg BID Admission and Anticipated Discharge Date Admission Date: November 20, 2021 Subjective Dago is seen at the bedside this morning. He is extremely frustrated by his slow recovery. Discussed his hyponatremia and oxygen requirements. He is understanding of this. Continuing dexamethasone. He is making slow but steady progress in oxygen requirements. He is not feel short of breath at rest. Denies chest pain, chest pressure, nausea, vomiting, diarrhea, constipation. Endorses that he is thirsty and wishes he can drink more water, discussed once his sodium is improved will consider liberalizing Review of Systems Review of Systems: All systems reviewed & are unremarkable except as noted in Subjective Physical Exam Physical Exam: General: A&Ox3. NAD. Cooperative. HEENT: Atraumatic, normocephalic. Vision/hearing grossly intact. Pulm: Trace wheezes on expiration today otherwise CTAB A&P. -rales, -rhonchi. Symmetrical chest rise. No increased work of breathing. No respiratory distress. Cardiac: RRR, -mrg. Radial pulses intact and symmetrical. Abdominal: Nontender, nondistended, soft. BS present. Results & Data Results & Data ([facility]) Vital Signs (Past 12 Hours) Vital Signs Temp Pulse Pulse Resp BP BP Pulse Ox 11/29/21 15:46 36.8 C 68 18 146/71 H 96 11/29/21 15:40 73 11/29/21 11:14 36.3 C L 73 18 118/71 93 11/29/21 07:07 36.4 C L 62 18 134/71 95 PG Care Time/CCT Total # of Minutes Spent Total Time Spent with Patient: Total time spent is greater than 50% in coordination of care (as documented) at patient's floor/unit and/or counseling patient: Coding Level of Care Code 53225 Subseq Hosp Care Lvl 2 Diagnoses Acute respiratory failure with hypoxia J96.01 Acute exacerbation of chronic obstructive pulmonary disease (COPD) J44.1 Pneumonia due to COVID-19 virus U07.1; J12.[address] R93.89 Secondary bacterial pneumonia J15.9 Hyperlipidemia E78.5 Hypertension I10 CAD (coronary artery disease) I25.10 GERD (gastroesophageal reflux disease) K21.9 Hyponatremia E87.1 DVT prophylaxis Z29.9
[2021-11-30] MEDS: dexAMETHasone 4 MG in SYRINGE 0 ML IV SCH ×2 (08:21→21:39)
[2021-11-30] MEDS: CHOLECALCIFEROL 5,000 UNITS 125 MCG TAB PO SCH (08:21)
[2021-11-30] MEDS: ASPIRIN 81 MG ECTAB PO SCH (08:21)
[2021-11-30] MEDS: CLOPIDOGREL BISULFATE 75 MG TAB PO SCH (08:21)
[2021-11-30] MEDS: ZINC SULFATE 220 MG CAPSULE PO SCH (08:21)
[2021-11-30] MEDS: ATORVASTATIN 40 MG TAB PO SCH (08:21)
[2021-11-30] MEDS: PANTOprazole 40 MG TAB PO SCH (08:21)
[2021-11-30] MEDS: ENOXAPARIN INJ 40 MG/0.4 ML SYR SQ SCH ×2 (08:22→21:40)
[2021-11-30] MEDS: CALCIUM ACETATE 667 MG CAP/TAB PO SCH ×3 (08:22→16:41)
[2021-11-30] MEDS: FAMOTIDINE 20 MG TAB PO SCH ×2 (08:22→21:45)
[2021-11-30] MEDS: guaiFENesin 600 MG TABCR PO SCH ×2 (08:22→21:37)
[2021-11-30] MEDS ORDERED: dexAMETHasone 1 MG TAB PO ONE (09:12)
[2021-11-30 09:30] LABS: Eosinophils # (auto) 0.02 K/uL (0-0.5); Eosinophils % (auto) 0.2 %; Hematocrit (blood only) 40.4 % (42-52); Hemoglobin 13.7 g/dL (14.0-18.0); Immature Granulocytes # (auto) 0.02 K/uL (0.00-0.02); Immature Granulocytes % (auto) 0.2 %; Lymphocytes # (auto) 1.27 K/uL (1.2-3.4); Lymphocytes % (auto) 10.2 %; Mean Corpuscular Hemoglobin 31.7 pg (25-34); Mean Corpuscular Hgb Conc 33.9 g/dL (32-36); Mean Corpuscular Volume 93.5 fL (80-100); Monocytes # (auto) 0.84 K/uL (0.11-0.59); Monocytes % (auto) 6.8 %; Neutrophils # (auto) 10.25 K/uL (1.4-6.5); Neutrophils % (auto) 82.6 %; Platelet Count 326 K/uL (130-400); RDW Coefficient of Variation 14.2 % (11.5-14.5); RDW Standard Deviation 48.5 fL (36.4-46.3); Red Blood Count 4.32 M/uL (4.7-6.1)
[2021-11-30 10:08] LABS: BUN Creatinine Ratio 35.6 (10-20); Calcium 8.3 mg/dl (8.5-10.1); Est GFR (African American) 112.8 ml/min; Est GFR (Non-African American) 97.3 ml/min; Potassium 3.9 mmol/L (3.5-5.1)
--- NOTE | 2021-11-30 16:47 | Hospitalist Progress Note ---
Date of Service November 30, 2021 Assessment & Plan (1) Acute respiratory failure with hypoxia: Plan: 12/01 COVID19 PNA, COPD exacerbation, +/- bacterial superinfection. - Steroids started 11/14/21 during his 1st admit - Rocephin 7 days azithromycin 6 days completed 11/27, discontinued -CTA chest: ?PF/ILD. -Cont to wean NC O2 as tolerated. -Cont pulmonary toilet. O2 Requirement slowly weaning, greatly improved to 2/. Currently on 3 L nasal cannula, although desats with rest Continue steroids for 1 more day, will test oxygen requirements again in the morning and see if he can maintain saturation of 3 L at rest, 5 L or less with ambulation. On attempted trial today did desat down into the 70s with prolonged recovery after 10 feet of ambulation x4. (2) Acute exacerbation of chronic obstructive pulmonary disease (COPD): Plan: -Steroids started 11/14 as above - Wean from 6mg BID to 4mg BID 11/28 -Wean to daily steroids 11/30 Continue 6 mg daily, decrease by 1 mg daily and wean remaining over 1 week - Continue [employer] inhalers (3) Pneumonia due to COVID-19 virus: Plan: -Slowly resolving. -Peak O2 requirements 15 L. -Now <10L Wean steroids as above -Pulm toilet. - Completed abx as above 11/27 - CXR 11/27: Increase in bilateral airspace opacities. This may reflect viral pneumonia. Interstitial thickening with distortion within the lungs, greater within the right lung. This may reflect pulmonary fibrosis superimposed upon emphysema. No evidence of pulmonary edema on repeat chest x-ray, defer Lasix at this time (4) Abnormal chest CT: Plan: 11/14/21 CTA without PE but emphysema and fibrotic changes seen. He may have superimposed ILD/PF on top of COPD. Needs pulm follow-up shortly after d/c. See above for o2 reqs (5) Secondary bacterial pneumonia: Plan: suspected. - abx as above (6) Hyperlipidemia: Plan: cont [employer] statin (7) Hypertension: Plan: controlled w/o meds (8) CAD (coronary artery disease): Plan: no ischemic sx's at this time trop neg at admission cont statin, asa, plavix (9) GERD (gastroesophageal reflux disease): Plan: - On DAPT - Continue PPI/famotidine (10) Hyponatremia: Plan: -?SIADH of PNA -Improving -Urine osmolarity high, relatively high urine sodium, low plasma tonicity consis tent with SIADH -Stable on fluid restriction, lifted per pt discussion, will start again if downtrending BMP daily (11) DVT prophylaxis: Plan: lovenox 40mg BID Admission and Anticipated Discharge Date Admission Date: November 20, 2021 Subjective Seen at bedside. Patient oxygen requirements greatly improved overnight, is now down to 3 L of nasal cannula although does desat quickly with exertion. No feve r, chills, sweats, eating breakfast well although somewhat dissatisfied with the diversity of food from the cafeteria, and otherwise has no acute complaints. Review of Systems Review of Systems: All systems reviewed & are unremarkable except as noted in Subjective Physical Exam Physical Exam: General: A&Ox3. NAD. Cooperative. HEENT: Atraumatic, normocephalic. Vision/hearing grossly intact. Pulm: Scattered wheezes on expiration today otherwise CTAB A&P. -rales, - rhonchi. Symmetrical chest rise. No increased work of breathing. No respiratory distress. Cardiac: RRR, -mrg. Radial pulses intact and symmetrical. Abdominal: Nontender, nondistended, soft. BS present. Results & Data Results & Data ([facility]) Vital Signs (Past 12 Hours) Vital Signs Temp Pulse Resp BP BP Pulse Ox 11/30/21 15:15 36.6 C 85 19 137/78 94 11/30/21 11:33 36.5 C 76 18 92/63 L 94 11/30/21 07:18 36.5 C 71 18 137/68 94 PG Care Time/CCT Total # of Minutes Spent Total Time Spent with Patient: Total time spent is greater than 50% in coordination of care (as documented) at patient's floor/unit and/or counseling patient: Coding Level of Care Code 52406 Subseq Hosp Care Lvl 2 Diagnoses Acute respiratory failure with hypoxia J96.01 Acute exacerbation of chronic obstructive pulmonary disease (COPD) J44.1 Pneumonia due to COVID-19 virus U07.1; J12.[address] R93.89 Secondary bacterial pneumonia J15.9 Hyperlipidemia E78.5 Hypertension I10 CAD (coronary artery disease) I25.10 GERD (gastroesophageal reflux disease) K21.9 Hyponatremia E87.1 DVT prophylaxis Z29.9
[2021-12-01 07:47] LABS: Hematocrit (blood only) 37.7 % (42-52); Hemoglobin 12.7 g/dL (14.0-18.0); Immature Granulocytes # (auto) 0.03 K/uL (0.00-0.02); Immature Granulocytes % (auto) 0.3 %; Lymphocytes # (auto) 1.07 K/uL (1.2-3.4); Lymphocytes % (auto) 11.2 %; Mean Corpuscular Hemoglobin 31.2 pg (25-34); Mean Corpuscular Hgb Conc 33.7 g/dL (32-36); Mean Corpuscular Volume 92.6 fL (80-100); Mean Platelet Volume 9.8 fL (7.4-10.4); Monocytes # (auto) 0.48 K/uL (0.11-0.59); Neutrophils # (auto) 7.96 K/uL (1.4-6.5); Neutrophils % (auto) 83.5 %; Platelet Count 284 K/uL (130-400); RDW Coefficient of Variation 14.1 % (11.5-14.5); Red Blood Count 4.07 M/uL (4.7-6.1); White Blood Count 9.54 K/uL (4.8-10.8)
[2021-12-01] MEDS: ATORVASTATIN 40 MG TAB PO SCH (08:17)
[2021-12-01] MEDS: CHOLECALCIFEROL 5,000 UNITS 125 MCG TAB PO SCH (08:17)
[2021-12-01] MEDS: ZINC SULFATE 220 MG CAPSULE PO SCH (08:17)
[2021-12-01] MEDS: PANTOprazole 40 MG TAB PO SCH (08:17)
[2021-12-01] MEDS: CLOPIDOGREL BISULFATE 75 MG TAB PO SCH (08:17)
[2021-12-01] MEDS: CALCIUM ACETATE 667 MG CAP/TAB PO SCH ×2 (08:17→13:13)
[2021-12-01] MEDS: guaiFENesin 600 MG TABCR PO SCH (08:17)
[2021-12-01] MEDS: ASPIRIN 81 MG ECTAB PO SCH (08:17)
[2021-12-01] MEDS: FAMOTIDINE 20 MG TAB PO SCH (08:17)
[2021-12-01] MEDS: ENOXAPARIN INJ 40 MG/0.4 ML SYR SQ SCH (08:18)
[2021-12-01 08:20] LABS: BUN Creatinine Ratio 35.7 (10-20); Calcium 8.1 mg/dl (8.5-10.1); Creatinine Clr Calc Pharmacy 115.8 ml/min; Est GFR (African American) 114.8 ml/min; Potassium 4.2 mmol/L (3.5-5.1)
[2021-12-01] MEDS ORDERED: dexAMETHasone 4 MG TAB PO SCH (09:00)
[2021-12-01] MEDS: dexAMETHasone 4 MG in SYRINGE 0 ML IV SCH (11:00)
--- NOTE | 2021-12-01 12:12 | Discharge Summary ---
Date of Service December 01, 2021 Admission HPI Per Admitting Provider The patient is a 66-year-old male with a past medical history including COPD, hyperlipidemia, hypertension, syncope, CAD, cervical spine stenosis, shingles, GERD, history of neck surgery and status post left knee arthroscopy. Initially developed symptoms on 11/13, was then admitted from 11/14-11/16, discharged to home, felt good on 11/17 through , and then developed symptoms on 11/20. He was diagnosed with COVID-19 on 11/14/2021. He was discharged home on dexamethasone and albuterol inhaler, which he reports taking as directed. In the emergency department this evening, his pulse ox was recorded as 84% on room air, chest x- ray showed some moderate worsening compared to 11/14, and he was thus referred for evaluation for admission. From the ED he received the following medications: Solu-Medrol 125 mg IV, and duo nebs x2. Principal Diagnosis Post Covid hypoxia, COPD exacerbation Discharge Exam General: A&Ox3. NAD. Cooperative. Comfortable on 2-3 L of nasal cannula oxygen. HEENT: Atraumatic, normocephalic. Vision/hearing grossly intact. Pulm: Scattered wheezes on forced expiration today otherwise CTAB A&P. -rales, - rhonchi. Symmetrical chest rise. No increased work of breathing. No respiratory distress. Cardiac: RRR, -mrg. Radial pulses intact and symmetrical. Abdominal: Nontender, nondistended, soft. BS present. Discharge Data Allergies Allergy/AdvReac Type Severity Reaction Status Date / Time IVORY SOAP Allergy Mild RASH Uncoded 11/20/21 23:51 Consultations 11/20/21 23:09 ED Decision to Admit Stat Hospital Course (1) Acute respiratory failure with hypoxia: Dago is a 66-year-old male with a past medical history of COPD and Covid who presented with hypoxia likely due to post Covid inflammation and COPD exacerbation with concern for bacterial superinfection. He completed a course of antibiotics with clinical improvement. CTA chest did show evidence of pulmonary fibrosis/ILD. He gradually clinically improved while on steroids. At time of discharge he was weaned to 2 L of oxygen at rest, 5 L with ambulation and was stable for discharge home. He was discharged to follow-up with his primary care physician and pulmonology for further. To do as outpatient 1. Complete steroid taper of dexamethasone 2. Repeat BMP to check sodium within 1 week as outpatient, patient with mild hyponatremia to 512147 during admission which improved with fluid restriction consistent with SIADH 3. Continued home health with focus on pulmonary rehab 4. Follow-up with PCP within 1 to [address] scan during admission showed evidence of underlying pulmonary fibrosis/ILD. Recommended for follow-up with pulmonology within 1 to 2 weeks of discharge. 2/ COVID19 PNA, COPD exacerbation, +/- bacterial superinfection. - Steroids started 11/14/21 during his 1st admit - Rocephin 7 days azithromycin 6 days completed 11/27, discontinued -CTA chest: ?PF/ILD. -Cont to wean NC O2 as tolerated. -Cont pulmonary toilet. O2 Requirement slowly weaning, greatly improved to 11/30. Currently on 3 L nasal cannula, although desats with rest Dexamethasone weaned to 6 mg daily at time of discharge. Discharged to continue a dexamethasone 6 mg taper, decrease by 1 mg daily. (2) Acute exacerbation of chronic obstructive pulmonary disease (COPD): -Steroids, antibiotics as above Continued on home inhalers (3) Pneumonia due to COVID-19 virus: -Slowly resolving. -Peak O2 requirements 15 L. -Pulm toilet. - Completed abx as above 11/27 - CXR 11/27: Increase in bilateral airspace opacities. This may reflect viral pneumonia. Interstitial thickening with distortion within the lungs, greater within the right lung. This may reflect pulmonary fibrosis superimposed upon emphysema. No evidence of pulmonary edema on repeat chest x-ray, deferred additional Lasix Hypoxia gradually improved and was discharged on home oxygen as noted above (4) Abnormal chest CT: 11/14/21 CTA without PE but emphysema and fibrotic changes seen. He may have superimposed ILD/PF on top of COPD. Needs pulm follow-up shortly after d/c. See above for o2 reqs (5) Secondary bacterial pneumonia: suspected. - abx as above (6) Hyperlipidemia: cont [employer] statin (7) Hypertension: controlled w/o meds (8) CAD (coronary artery disease): no ischemic sx's at this time trop neg at admission cont statin, asa, plavix (9) GERD (gastroesophageal reflux disease): - On DAPT - Continue PPI/famotidine (10) Hyponatremia: -?SIADH of PNA -Improved with fluid restriction -Urine osmolarity high, relatively high urine sodium, low plasma tonicity consistent with SIADH -Stable on fluid restriction, lifted per pt discussion, will start again if downtrending 133 at discharge, recommended fluid restriction the patient discharged with follow-up BMP as outpatient (11) DVT prophylaxis: lovenox 40mg BID Total Time Total Time Spent Total Time Spent (In Minutes): Time spent day of discharge 35 minutes including direct patient care, documentation, review of labs and images, and coordination of care. Discharge Plan Discharge Items Patient Disposition: Home - Home Health Services Reason For Visit: COVID-19 PNEUMONIA, COPD EXACERBATION, HYPOXIA Discharge Diagnosis: Post COVID Hypoxia, COPD Exacerbation Activity: Per Instructions section Non-emergency contact: Primary Care Provider Call non-emergency contact if: you have any medication questions, your symptoms worsen, your pain is not controlled, your pain is worsening and you have a fever Follow-up/Referrals: Lisa Baker MD [Physician] - Mariaelena Carpenter, [facility] [Primary Care Provider] - Diet: Regular Fluids: 2000ml (8 cups) Addtl Attending Provider Instructions: You are seen in the hospital for acute hypoxic respiratory failure due to Covid with change made been worsened by a COPD exacerbation. Your oxygen levels slowly down trended over several days. At time of discharge you were seen by respiratory therapy for formal evaluation of your oxygen requirements, you were requiring 2 L of oxygen at rest and 5 L with exertion. You can prescribe indications as below. Please follow-up with your primary care provider as below. You have been prescribed a course of steroid medications. Your steroids were gradually weaned during admission. When you return home please take dexamethasone 6 mg daily for 1 day, then 5 mg daily for 1 day, then 4 mg daily for 1 day, then 3 mg daily for 1 day, then 2 mg daily for 1 day, then 1 mg daily and then stop. Please do not take indomethacin while on steroids. Steroids can be rough on the stomach and can contribute to ulcers. You have been prescribed a short course of a antiacid medicine, Protonix, to help protect your stomach while on dexamethasone. Please take Protonix 40 mg once daily for 2 weeks. You have been prescribed home oxygen as noted above. Please use 2 L of oxygen at all times and 5 L with exertion. Please follow-up with your primary care physician for further adjustments and decreases to your oxygen levels as you continue to improve. Your sodium levels were slightly low during admission. This did improve by restricting water intake to less than 2 L/day. Excess fluid intake may worsen breathing status and may further lower your sodium levels. Covid and other pneumonias can temporarily cause a condition called SIADH in which your body is more likely to hold onto excess water and have low sodium. Please follow-up with your primary care provider for blood work to recheck your sodium levels at your follow-up appointment, and present for reevaluation if you have any new or worsening symptoms. Physical therapy has recommended for home health/physical therapy to help with your strength and pulmonary status. This is being set up by case management. Your CT scan showed evidence of underlying pulmonary fibrosis and concern for chronic lung disease. A follow-up appointment with pulmonary is being scheduled for you within 1 to 2 weeks of discharge. Please keep this appointment, and if you do not hear regarding an appoint within 48 hours please call their office at the number above. A followup appointment is being scheduled for you with your PCP. You should be seen seen within 1 week. You should receive a call to confirm this appointment. If you do not receive a call within 48 hours to confirm this appointment, or need to change this appointment, please call the provider's office at the number above. At this appointment you should have your sodium levels rechecked. If you develop any new or worsening symptoms including fever, chills, sweats, chest pain, chest pressure, difficulty breathing, uncontrolled nausea/vomiting, rash, wheezing, passing out or nearly passing out, bleeding, black/bloody bowel movements, or other new or concerning symptoms please call your primary care physician, or call 911 for re-evaluation in the emergency department if you are very concerned. Pending Studies at Discharge: No Stand-Alone Forms: My Layer, Smoking Cessation Medications and DC Order Prescriptions: New pantoprazole 40 mg Tablet,Delayed Release (Dr/Ec) 40 mg PO QAM Qty: 14 RF: 0 dexamethasone 1 mg tablet See Rx Instructions .ROUTE .COMPLEX Qty: 21 RF: 0 Continued albuterol sulfate [ProAir HFA] 90 mcg/actuation Hfa Aerosol Inhaler 2 puff INHALATION QID PRN (Reason: SHORT OF BREATH) RF: 0 atorvastatin 20 mg Tablet 40 mg PO QAM Qty: 1 RF: 3 aspirin 81 mg Tablet,Delayed Release (Dr/Ec) 81 mg PO QAM RF: 0 dicyclomine 10 mg capsule 10 mg PO TID PRN (Reason: Pain) RF: 0 clopidogrel 75 mg tablet 75 mg PO QAM RF: 0 fluticasone propion-salmeterol [Advair Diskus] 250-50 mcg/dose Blister With Device 1 inh INHALATION BID RF: 0 Discontinued indomethacin 75 mg capsule, extended release 75 mg PO BID MDD 2 PRN (Reason: prn knee/wrist pain) Qty: 10 RF: 0 dexamethasone 6 mg tablet See Rx Instructions .ROUTE .COMPLEX Qty: 11 RF: 0 Discharge Orders: Discharge Order (Routine); Ordered 12/01/21 Ordered By: Romel Flores Admission Data Admit Date/Time: 11/20/21 23:45 Attending Provider: Romel Flores Admit Provider: Mac Cuellar Primary Care Provider: Mariaelena Carpenter Other Providers: Mac Cuellar ; [facility] Coding Level of Care Code D/C DAY MANAGEMENT >30 MINS Diagnoses Acute respiratory failure with hypoxia J96.01 Acute exacerbation of chronic obstructive pulmonary disease (COPD) J44.1 Pneumonia due to COVID-19 virus U07.1; J12.[address] R93.89 Secondary bacterial pneumonia J15.9 Hyperlipidemia E78.5 Hypertension I10 CAD (coronary artery disease) I25.10 GERD (gastroesophageal reflux disease) K21.9 Hyponatremia E87.1 DVT prophylaxis Z29.9
== END 2021-12-01 13:43 | disposition home health service (06) | DRG 177 ==
LOC: ED 21:31 → SUATTDRO 23:45 → EDINP 23:45 → 2S 11-21 13:53

== ENCOUNTER 2023-04-21 08:14 | Observation (INO) ==
--- NOTE | 2023-03-16 11:12 | PAT Medication Instructions ---
Medication Instructions Date of Service March 16, 2023 Home Medications Medication Instructions Recorded atorvastatin 20 mg tablet 40 mg PO QAM #1 tab 04/12/21 albuterol sulfate 90 mcg/actuation aerosol inhaler (ProAir HFA) 2 puff inhalation QID PRN SHORT OF BREATH atorvastatin 20 mg tablet 40 mg PO QAM aspirin 81 mg tablet,delayed release 81 mg PO QAM cholecalciferol (vitamin D3) 25 mcg (1,000 unit) tablet (Vitamin D3) 25 mcg PO QAM cyanocobalamin (vitamin B-12) 1,000 mcg capsule 1,000 mcg PO Q30D isosorbide mononitrate 60 mg tablet,extended release 24 hr 60 mg PO QAM lisinopril 20 mg tablet 20 mg PO QAM magnesium oxide 420 mg tablet 420 mg PO QAM methocarbamol 750 mg tablet 750 mg PO BID nitroglycerin 0.4 mg sublingual tablet 0.4 mg sublingual UD PRN Chest Pain Continue as directed nitroglycerin 0.4 mg sublingual tablet 0.4 mg sublingual UD PRN Chest Pain (if needed) DO NOT take the morning of surgery cholecalciferol (vitamin D3) 25 mcg (1,000 unit) tablet (Vitamin D3) 25 mcg PO QAM cyanocobalamin (vitamin B-12) 1,000 mcg capsule 1,000 mcg PO Q30D lisinopril 20 mg tablet 20 mg PO QAM magnesium oxide 420 mg tablet 420 mg PO QAM methocarbamol 750 mg tablet 750 mg PO BID Take morning of surgery With a small sip of water, OTHERWISE NOTHING TO EAT OR DRINK AFTER MIDNIGHT: albuterol sulfate 90 mcg/actuation aerosol inhaler (ProAir HFA) 2 puff inhalation QID PRN SHORT OF BREATH (use if needed; please bring with you to hospital day of surgery if possible) atorvastatin 20 mg tablet 40 mg PO QAM aspirin 81 mg tablet,delayed release 81 mg PO QAM (unless surgeon directed otherwise) isosorbide mononitrate 60 mg tablet,extended release 24 hr 60 mg PO QAM Take evening before surgery albuterol sulfate 90 mcg/actuation aerosol inhaler (ProAir HFA) 2 puff inhalation QID PRN SHORT OF BREATH (if needed) methocarbamol 750 mg tablet 750 mg PO BID Other Notes If you have any questions please call us at [phone] or [phone] or [phone] or [phone]
--- NOTE | 2023-03-23 11:07 | Anesthesiology Consultation ---
Date of Service March 23, 2023 Assessment & Plan (1) Encounter for pre-operative examination: Chart Review Chart Review: Acceptable Risk for Surgery and Patient seen in Pre Admission Testing - Pt is NOT an OPJ candidate Per PAT appt on 03/23/23, patient denies any recent travel or large group activities. Pt is NOT vaccinated for Covid. Will leave to surgeon's discretion if preop Covid testing needed. Educated on importance of using Covid precautions one week prior to surgery Pt seen by cardio 03/21/23= patient seen for follow-up. CADstent to LAD in March 2021. Patient denies any further chest discomfort. Stress test negative for ischemia 04/01/2022. We will add metoprolol succinate 12.5 mg daily. HypertensionBP 129/77. Hyperlipidemialast LDL 70. Encourage weight loss for obesity. Patient will be considered low risk for upcoming knee surgery. Beta- sherie therapy should be continued throughout the perioperative period. Patient seen by pulmonology 03/21/2023 = patient seen for follow-up on COPD with asthma overlap and post COVID-[address] to be done today. Continue current COPD/asthma regimen. He does not have a pulmonary contraindication to knee replacement surgery. This is scheduled for March 2023. Okay to proceed as planned. Please keep patient on usual inhaler therapy in the preop and postop period. Follow-up in 6 months. Pt seen by PCP 02/28/23= seen for follow up on chronic illnesses. Patient presents for routine visit. States he is doing well. No issues or concerns today. Has arthritis to left knee. Scheduled for TKA on 04/21/2023. History of neck paingetting injection on 03/12/2023. History of CAD/stents/hypertensionfollows with [place] cardiology. History of COPDweaning himself off oxygen. Only uses oxygen at night. Breathing has been good. Has pulm appointment 03/21/2023. History of hyperlipidemiaon atorvastatin. History of [place]. Continue current meds. Follow up in six months Teaching & Discussion Pre-Anesthesia Teaching/Discussion Notes: Instructed NPO after midnight before surgery,except medications with 15 cc of water. Medication instructions provided according to the PAT guidelines. History Surgery Operation Date: 04/21/23 10:20 Proposed Procedures p Left Total Knee Arthroplasty - Nikolas Killian, DO Height/Weight Height: 5 ft 7 in Weight: 108 kg Allergies Allergy/AdvReac Type Severity Reaction Status Date / Time IVORY SOAP Allergy Mild RASH Uncoded 03/16/23 09:49 Medications Home Medications Medication Instructions Recorded Confirmed Last Taken albuterol sulfate 90 mcg/actuation 2 puff inhalation QID PRN SHORT OF 09/07/20 03/16/23 11/12/21 aerosol inhaler (ProAir HFA) BREATH atorvastatin 20 mg tablet 40 mg PO QAM #1 tab 04/12/21 03/16/23 11/12/21 aspirin 81 mg tablet,delayed 81 mg PO QAM 05/24/21 03/16/23 11/12/21 release cholecalciferol (vitamin D3) 25 25 mcg PO QAM 02/01/23 03/16/23 Unknown mcg (1,000 unit) tablet (Vitamin D3) cyanocobalamin (vitamin B-12) 1,000 mcg PO Q30D 02/01/23 03/16/23 Unknown 1,000 mcg capsule isosorbide mononitrate 60 mg 60 mg PO QAM 02/01/23 03/16/23 Unknown tablet,extended release 24 hr lisinopril 20 mg tablet 20 mg PO QAM 02/01/23 03/16/23 Unknown magnesium oxide 420 mg tablet 420 mg PO QAM 02/01/23 03/16/23 Unknown methocarbamol 750 mg tablet 750 mg PO BID 02/01/23 03/16/23 Unknown nitroglycerin 0.4 mg sublingual 0.4 mg sublingual UD PRN Chest Pain 03/16/23 03/16/23 Unknown tablet fluticasone 250 mcg-salmeterol 50 1 inh inhalation BID 03/23/23 03/23/23 Unknown mcg/dose blistr powdr for inhalation metoprolol succinate 25 mg 12.5 mg PO QAM 03/23/23 03/23/23 Unknown tablet,extended release 24 hr Past Medical History Medical History CAD (coronary artery disease) S/p PCI with FAUSTINO to LAD on 04/12/21 (residual 60% Cx stenosis per cardio records) Chronic obstructive pulmonary disease with asthma overlap per records Breathing stable Degenerative disc disease CERVICAL; RECENT INJECTION 03/13/23>ROM "IS GOOD" GERD (gastroesophageal reflux disease) WELL CONTROLLED AND STABLE History of COVID-19 10/2020, [facility] ER TEST, ADMITTED TO [facility] FOR 15 DAYS, ON 15L O2 FOR 8 DAYS; SHORTNESS OF BREATH, SYNCOPE>RESOLVED W/EXCEPTION OF BEING ON OXYGEN AT NIGHT. Hyperlipidemia Hypertension On home oxygen therapy O2 2lpm at night- has weaned off oxygen during the day since 2020 Covid infection. Pulm aware. 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 Follows with pulmonology Prediabetes Presumed- Hgb A1C 6.2 on 02/28/23 Rheumatoid arthritis Per review of records after PAT appt Exercise / Class Metabolic Activity III < 4 Walking/Shop/Light housework (no chest pain or SOB with flat surface ambulation ) Past Family History Family History Other No family history of adverse response to anesthesia Past Surgical History Surgical History H/O neck surgery x 2 C4-7 fusion History of appendectomy History of cardiac cath 04/12/2021, [facility], X1 STENT;F/U DR. [facility]OW [place], [place] History of colonoscopy with polypectomy History of hand surgery right middle finger tip of finger removed History of heart artery stent 04/12/2021, [facility], X1 History of surgery NERVE GRAFT LEFT HAND History of wisdom tooth extraction S/P left knee arthroscopy X3 Past Anesthesia History No Hx of Anesthesia Complications and Other (FH unknown ) History of PONV No Hx of PONV and No Hx of Motion Sickness Social History Smoking Status: Former smoker tobacco type: cigarettes Do You Dip or Chew Tobacco: Yes (HX-QUIT 1980s) Smoking End Date: 08/2019 Hx Alcohol Use: Yes Alcohol type: beer alcohol intake frequency: holidays/special occasions only Hx Substance Use: No substance use type: does not use Review of Systems Snoring unknown- no hx of sleep study Patient denies chest pain, shortness of breath, dyspnea on exertion, cough, wheezing, palpitations. No hx of seizures, stroke. No hx of blood clots or blood transfusions Physical Exam Vital Signs VITALS BP 122/70 (manually) P 82 TEMP 97.7 SP02 95% on RA RESP 16 Constitutional no acute distress ENMT Mouth: no TMJ clicking Thyromental Distance: > or= 3.5 Finger Breadths (3.5) Mallampati Class: III Missing all top teeth Missing bottom molars and side teeth Neck + limited neck extension Respiratory normal respiratory effort; no respiratory distress Auscultation: lungs clear to auscultation bilaterally; no wheezes Cardiovascular Rate/Rhythm: regular rate and regular rhythm Heart Sounds: no murmur Vessels: no carotid bruit Musculoskeletal Spine: no pain with cervical ROM Extremities: extremities normal to inspection Psychiatric Orientation: alert Lab Results Anesthesia Preop Results Results Anesthesia Widget: Na 133 mmol/L (136-145) L 03/23/23 K 4.6 mmol/L (3.5-5.1) 03/23/23 Cl 101 mmol/L (98-107) 03/23/23 CO2 27 mmol/L (21-32) 03/23/23 BUN 25 mg/dl (6-23) H 03/23/23 Creat 1.04 mg/dl (0.6-1.4) 03/23/23 Glucose Level 92 mg/dl (70-99(Fasting)) 03/23/23 PT 9.8 Seconds (9.0-12.0) 03/23/23 PTT 23.4 Seconds (21.0-31.0) 03/23/23 INR 0.9 (0.9-1.1) 03/23/23 Blood Type A Positive 03/23/23 Antibody Screen NEGATIVE 03/23/23 Testing Laboratory Results 02/28/23= WBC: 6.9 H/H: 14.1/42.8 PLATELETS: 274 Electrocardiogram Date: 03/21/23 Findings: + NSR @ (83bpm ) Normal EKG per cardio. Chest X-Ray Date: 03/23/23 FINDINGS: No pneumothorax. No pleural effusions. The cortex and what is normal in size. There are low lung volumes. This mild interstitial thickening within the mid to lower lung zones. This is likely chronic. No new focal lung consolidations to suggest a pneumonia. No evidence for pulmonary edema. Cervical spinal fusion hardware is noted. IMPRESSION: Mild interstitial thickening within the mid to lower lung zones which is likely chronic. Otherwise, no acute process within the chest. Stress Test Date: 04/01/22 Type: nuclear Summary: 1. Negative myocardial perfusion study for Lexiscan induced ischemia. 2. Normal LV size and function. LVEF 69% with no regional wall motion abnormalities. 3. Non-diagnostic Lexiscan ECG due to inability to achieve target heart rate. Cardiac Catheterization Date: 04/12/21 Findings: LM - Normal caliber, no significant disease LAD - Medium caliber, 70% early mid stenosis trifurcation with D1 and large septal, distal vessel small and tapers prior to apex. Medium D1 without significant disease. 70% ostial stenosis of first septal Circumflex -medium caliber, 60% distal stenosis prior to left PLB. Medium caliber OM 3 and left PLB without significant disease. RCA -dominant, medium caliber, downward/superior takeoff, 40% proximal stenosis, remainder of vessel without significant disease. Summary: 1. Multi-vessel coronary artery disease -70% mid LAD stenosis (FFR 0.72) at trifurcation with D1 and large septal 60% distal circumflex 40% proximal RCA 2. Normal intracardiac filling pressure 3. Successful PCI of proximal to mid LAD with single drug-eluting stent (2.25 x 18 mm [place]; postdilated with 2.5 NC). COVID-19 Risk Screen Screening Information COVID-19 Screen Date: 03/23/23 Exposure 21 Days Family/Household +COVID Last 21 Days: No Exposure 10 Days Any COVID Exposure Last 10 Days: No Symptoms Last 10 Days Experienced COVID Sx Last 10 Days: No + COVID 0-90 Days COVID + in Last 0-90 Days: No Risk Plan COVID Risk Plan: No Risk Identified Patient Education COVID Preop Screening Education Complete: Yes
--- NOTE | 2023-04-20 07:58 | History & Physical Report ---
Date of Service April 20, 2023 Assessment & Plan (1) Osteoarthritis of left knee: We will proceed with a left total knee arthroplasty. Postoperatively he will be started on aspirin for DVT prophylaxis and kept overnight in the hospital for postop medical management. He plans to have the hospital set up home health before discharge. History of Present Illness Chief Complaint: Osteoarthritis of the left knee. Primary Care Provider: Mariaelena Carpenter PA-C Dago is a pleasant 67-year-old male who has been dealing with chronic left knee pain. He has had 3 knee arthroscopies in the past, the most recent being in [address] Goff. He has had multiple MRIs of his left knee as well, the most recent being in October 2022. The MRIs do show some worsening osteoarthritis of the left knee. He is really struggling with the left knee. He has failed years of conservative treatment including cortisone injections, physical therapy, ant-inflammatories, and multiple arthroscopies. He has also been seeing pain management. He really limps with his left knee. It is painful everyday. It keeps him from doing activities he enjoys. After failing conservative treatment, he has elected proceed with a left total knee arthroplasty. Allergies Allergy/AdvReac Type Severity Reaction Status Date / Time IVORY SOAP Allergy Mild RASH Uncoded 03/31/23 09:04 Home Medications Medication Instructions Recorded Confirmed Type albuterol sulfate 90 mcg/actuation 2 puff inhalation QID PRN SHORT OF 09/07/20 03/31/23 History aerosol inhaler (ProAir HFA) BREATH atorvastatin 20 mg tablet 40 mg PO QAM #1 tab 04/12/21 03/31/23 Rx aspirin 81 mg tablet,delayed 81 mg PO QAM 05/24/21 03/31/23 History release cholecalciferol (vitamin D3) 25 25 mcg PO QAM 02/01/23 03/31/23 History mcg (1,000 unit) tablet (Vitamin D3) cyanocobalamin (vitamin B-12) 1,000 mcg PO Q30D 02/01/23 03/31/23 History 1,000 mcg capsule isosorbide mononitrate 60 mg 60 mg PO QAM 02/01/23 03/31/23 History tablet,extended release 24 hr lisinopril 20 mg tablet 20 mg PO QAM 02/01/23 03/31/23 History magnesium oxide 420 mg tablet 420 mg PO QAM 02/01/23 03/31/23 History methocarbamol 750 mg tablet 750 mg PO BID 02/01/23 03/31/23 History nitroglycerin 0.4 mg sublingual 0.4 mg sublingual UD PRN Chest Pain 03/16/23 03/31/23 History tablet fluticasone 250 mcg-salmeterol 50 1 inh inhalation BID 03/23/23 03/31/23 History mcg/dose blistr powdr for inhalation metoprolol succinate 25 mg 12.5 mg PO QAM 03/23/23 03/31/23 History tablet,extended release 24 hr Past Med/Surg History Medical History CAD (coronary artery disease) S/p PCI with FAUSTINO to LAD on 04/12/21 (residual 60% Cx stenosis per cardio records) Chronic obstructive pulmonary disease with asthma overlap per records Breathing stable Degenerative disc disease CERVICAL; RECENT INJECTION 03/13/23>ROM "IS GOOD" GERD (gastroesophageal reflux disease) WELL CONTROLLED AND STABLE History of COVID-19 10/2020, [facility] ER TEST, ADMITTED TO [facility] FOR 15 DAYS, ON 15L O2 FOR 8 DAYS; SHORTNESS OF BREATH, SYNCOPE>RESOLVED W/EXCEPTION OF BEING ON OXYGEN AT NIGHT. Hyperlipidemia Hypertension On home oxygen therapy O2 2lpm at night- has weaned off oxygen during the day since 2020 Covid infection. Pulm aware. Seen by pulm 03/21/23- approved for surgery; sating 95% on RA at PAT appt 03/23/23 [id number] condition Post Covid 19 pulmonary fibrosis per records (was on continuous oxygen- now only on oxygen at night). Follows with pulmonology Prediabetes Presumed- Hgb A1C 6.2 on 02/28/23 Rheumatoid arthritis Per review of records after PAT appt Surgical History H/O neck surgery x 2 C4-7 fusion History of appendectomy History of cardiac cath 04/12/2021, [facility], X1 STENT;F/U [facility], [place] History of colonoscopy with polypectomy History of hand surgery right middle finger tip of finger removed History of heart artery stent 04/12/2021, [facility], X1 History of surgery NERVE GRAFT LEFT HAND History of wisdom tooth extraction S/P left knee arthroscopy X3 Family History Other No family history of adverse response to anesthesia Social History Smoking Status: Former smoker Tobacco Type: Cigarettes Second Hand Exposure: Yes (HX); Do You Dip or Chew Tobacco: Yes (HX-QUIT 1980s); Hx Alcohol Use: Yes Alcohol type: beer Hx Substance Use: No Preferred Language: Indonesian Communication Ability: Effective Manager Pathology Required: No Beliefs That Will Affect Care: None marital status: Current Living Situation: Spouse current occupation: assistant at surgery disability Feels Safe at Home: Yes Assistive Devices: Denture - Upper, Denture - Lower, Glasses, Hearing Aid - Bilateral and Oxygen - at Night Review of Systems All systems reviewed & are unremarkable except as noted in HPI & below. Physical Exam On physical examination of the left knee, he has a slight varus deformity. He has tenderness palpation of the distal medial femoral condyle and over the medial joint line.. Constitutional WD/WN, vitals as above Eyes PERRL, conjunctivae normal, anicteric sclerae ENMT external ear and nose normal, oropharynx normal Neck trachea midline, no thyromegaly Respiratory normal respiratory effort, lungs clear to auscultation Cardiovascular RRR, no murmur, no edema Gastrointestinal (Abdomen) normal bowel sounds, soft, nontender, no hepatosplenomegaly Skin no rashes, warm and dry Psychiatric A+Ox3, euthymic affect Results & Data Results & Data Laboratory Results . Diagnostic Findings X-rays of the left knee show medial compartmental arthritis with some joint space narrowing. MRIs of the left knee do show advanced medial compartmental arthritis.. PG Care Time/CCT Total # of Minutes Spent Total Time Spent with Patient: Total time spent is greater than 50% in coordination of care (as documented) at patient's floor/unit and/or counseling patient: Coding Level of Care Code None Diagnoses Osteoarthritis of left knee M17.12
[~2023-04-21 08:14] MED LIST: ACETAMINOPHEN 500 MG TAB PO SCH; BUPIVACAINE 0.5 % 5 MG/1 ML PF 10ML VIAL ONE; EPINEPHrine INJ 1 MG/ML AMP ONE; FAMOTIDINE 20 MG TAB PO SCH; GABAPENTIN 300 MG CAP PO SCH; Ketorolac (*for OR use only*) 30 MG, dexAMETHasone 4 MG, KETAMINE HCL (**OR use only) 1... INFIL SCH; LR 500ML BOLUS, THEN 15ML/HR IV SCH; LR 60ML/HR IV SCH; ROPIVACAINE 0.5% 5 MG/ML 30 ML VIAL ONE; TRANEXAMIC ACID 1,000 MG **IV Intra-op IV SCH; TRANEXAMIC ACID 1,000 MG **IV Pre-op IV SCH; ceFAZolin 2000MG 2,000 MG/15 ML SYR IV SCH; dexAMETHasone 4 MG TAB PO SCH
[2023-04-21] MEDS ORDERED: MIDAZOLAM HCL 1 MG/ML 2ML VIAL ONE (09:31)
[2023-04-21] MEDS ORDERED: fentaNYL citrate PF 100 MCG/2 ML VIAL ONE (09:31)
--- NOTE | 2023-04-21 10:02 | History & Physical Bridge Note ---
Date of Service April 21, 2023 History & Physical Bridge Note I have examined the patient, reviewed the History & Physical and in the interval since the performance of the History & Physical I have noted the following changes of clinical significance: no changes noted
[2023-04-21] MEDS ORDERED: ORTHO JOINT ANESTHETIC ONE (10:14)
[2023-04-21] MEDS ORDERED: fentaNYL citrate PF 100 MCG/2 ML VIAL IV PRN (10:32)
[2023-04-21] MEDS ORDERED: ONDANSETRON INJ 2 MG/ML 2 ML VIAL IV PRN ×2 (10:32→13:17)
[2023-04-21] MEDS ORDERED: NALOXONE HCL 0.4 MG/1 ML VIAL/CARP IV PRN ×2 (10:32→13:17)
[2023-04-21] MEDS ORDERED: HYDROmorphone INJ 1 MG/ML SYRINGE IV PRN (10:32)
[2023-04-21] MEDS ORDERED: PROMETHAZINE HCL 12.5 MG in SODIUM CHLORIDE 0.9% 50 ML IV PRN (10:32)
[2023-04-21] MEDS ORDERED: ePHEDrine sulfate 50 MG/ML AMP IV PRN (10:32)
[2023-04-21] MEDS ORDERED: FLUMAZENIL 0.1 MG/1 ML 10 ML VIAL IV PRN (10:32)
[2023-04-21] MEDS ORDERED: ATROPINE SULFATE 0.1 MG/ML 10ML SYR IV PRN (10:32)
[2023-04-21] MEDS ORDERED: ePHEDrine sulfate 50 MG/ML SYR ONE (11:29)
[2023-04-21] MEDS ORDERED: PROPOFOL IV EMULSION 10 MG/ML 20 ML VIAL IV ONE ×2 (11:29)
[2023-04-21] MEDS ORDERED: PHENYLEPHRINE HCL 10 MG/ML VIAL ONE (11:32)
[2023-04-21] MEDS ORDERED: LIDOCAINE 2% 2 ML VIAL/AMP(20MG/ML) INFIL ONE (11:33)
--- NOTE | 2023-04-21 11:45 | Operative Report ---
PG Post Operative Report Pre & Post Diagnosis Operation Date: 04/21/23 10:20 Pre-Op Diagnosis: Left Knee Degenerative Joint Disease Post-Op Diagnosis: Left Knee Degenerative Joint Disease I identified the patient and participated in the time-out.: Yes Procedure Operation Date: 04/21/23 10:20 Actual Procedures p Left Total Knee Arthroplasty, Cemented(Left) - Nikolas Killian DO Surgeon Nikolas Killian DO Fleet Administrative Assistant Nikolas Guerra PA-C Estimated Blood Loss 30 Findings Consistent with Post-Op Diagnosis Specimens Left femoral tibial bone Description of Procedure Implants used: I used a Tonny Persona total knee arthroplasty system with a size 8 PS standard femur, D tibia, 31 oval patella, and a size 12 CPS polyethylene bearing. All components were cemented in place with Biomet cement. Dago arrived [facility] for the above procedure. He was seen in the preoperative holding area and the operative extremity was identified and signed. He was given a preoperative antibiotic, TXA, a spinal anesthetic and an adductor nerve block. He was taken back to the operating room and laid on the table in supine position. He was given basic sedation. The operative knee was then prepped and draped in sterile fashion. A timeout was done, and the patient and the operative extremity was properly identified. A midline incision was made directly over the patella. Dissection was taken down to the extensor mechanism. A midvastus arthrotomy was used. The medial retinaculum was released and the fat pad was mostly excised. The knee was flexed and the ACL, PCL, and meniscus were removed. A drill was sent down the center of the femoral canal followed by an intramedullary simon. Off that simon a distal femoral cutting block was placed. 9 mm was resected off the distal femur at 5 of valgus. A posterior referencing AP sizing guide was then placed on the distal femur. The femur measured to be a size 8. 2 drill holes were placed in 3 of external rotation. A 4-in-1 cutting block was then impacted into place. Anterior, posterior, and chamfer cuts were then made. The proximal tibia was then exposed. An external tibial alignment guide was placed. A tibial cut guide was then anchored in place and the proximal tibia was then resected. The posterior aspect of the knee was then opened up and any additional meniscus fragments and osteophytes were removed. The tibia measured to be a size D. The tibial plate was then placed in the appropriate rotation and the tibia was drilled and punched. Trial components were then placed. I used a size 12 CPS polyethylene insert. The knee was brought through a full range of motion and felt to be stable. The peg holes for the femoral component were then drilled. The patella was then everted and 9 mm was resected off the posterior aspect of the patella. The patella measured to be a size 31 oval. 3 peg holes were then drilled. A trial patella was placed. The knee was once again brought through a full range of motion and felt to be stable. Trial components were then removed. The surrounding soft tissues were injected with 100 cc of an orthopedic pain control cocktail. All components were then cemented into place with Biomet cement. The final polyethylene insert was then snapped into place. Once cement was dry the tourniquet was deflated. Hemostasis was obtained. A dilute betadyne lavage was then done for 3 minutes. The joint was then irrigated with normal saline solution. The midvastus arthrotomy was then closed with #1 Vicryl suture. The skin was closed with 2-0 Vicryl, 3-0V lock suture, and rob. A soft compressive dressing was placed. He was then transferred to a hospital bed and taken to the postanesthesia care unit in stable condition. He tolerated the procedure well. Nikolas Guerra PA-C, was present for the entire procedure. He was critical for patient positioning, prepping, draping, retraction exposure, wound closure and application of sterile dressing. I attest to the content of the Intraoperative Record and any orders documented therein. Any exceptions are noted below.
--- NOTE | 2023-04-21 12:36 | XRay Report ---
TWO VIEWS LEFT KNEE CLINICAL HISTORY: Postoperative examination. FINDINGS: AP and crosstable lateral portable views of the left knee are obtained. A left knee arthrop lasty is in near anatomic alignment. There has been undersurface remodeling of the patella. No acute fracture is seen. There are expected postoperative changes around the knee including skin clips, soft tissue edema, and subcutaneous gas. There is atherosclerotic calcification of the popliteal artery. IMPRESSION: Expected postoperative changes status post left knee arthroplasty. No acute fracture is s een. ACT 112: Negative or not required by law. Electronically signed by: Deonte Cline M.D. 04/21/2023 12:35 PM
--- NOTE | 2023-04-21 13:13 | Anesthesiology Progress Note ---
Date of Service April 21, 2023 Anesthesia Post Procedure Vital Signs Vital Signs: Temp Pulse Pulse Resp BP BP Pulse Ox 04/21/23 13:06 36.5 C 80 20 117/66 94 04/21/23 12:25 86 23 124/70 93 04/21/23 12:57 74 13 128/66 95 04/21/23 12:45 36.2 C L 88 16 132/72 93 04/21/23 12:35 81 17 140/68 95 04/21/23 12:15 86 15 95/68 L 99 04/21/23 12:05 36.1 C L 86 23 121/45 L 99 04/21/23 08:42 36.5 C 87 16 138/74 95 O2 Del Method O2 Flow Rate 04/21/23 13:06 Room Air 04/21/23 12:25 Room Air 04/21/23 12:57 Room Air 04/21/23 12:45 Room Air 04/21/23 12:35 Room Air 04/21/23 12:15 Oxymask 5 04/21/23 12:05 Oxymask 5 04/21/23 08:42 Room Air Pain Intensity Left Knee: Pain Intensity: 7 Transfer of Care Handoff Completed per policy Notes Mental Status: alert / awake / arousable Patient Amnestic to Procedure: Yes Nausea / Vomiting: adequately controlled Pain: adequately controlled Airway Patency, RR, SpO2: stable & adequate BP & HR: stable & adequate Hydration State: stable & adequate Neuraxial Anesthesia: was administered and sensory block is resolving Anesthetic Complications: no major complications apparent
[2023-04-21] MEDS ORDERED: HYDROmorphone INJ 0.5 MG/0.5 ML SYR IV PRN (13:17)
[2023-04-21] MEDS ORDERED: NITROGLYCERIN SL 0.4 MG/TAB TAB SL PRN (13:17)
[2023-04-21] MEDS ORDERED: MAGNESIUM HYDROXIDE SUSP 30 ML UDC PO PRN (13:17)
[2023-04-21] MEDS ORDERED: oxyCODONE HCL IR 5 MG TAB (IMMEDIATE RELEASE) PO PRN (13:17)
[2023-04-21] MEDS ORDERED: METOCLOPRAMIDE HCL INJ 5 MG/ML 2 ML VIAL IV PRN (13:17)
[2023-04-21] MEDS ORDERED: ALBUTEROL HFA 8 GM INHALER INH PRN (13:17)
[2023-04-21] MEDS ORDERED: bisacodyL 10 MG SUPP PR PRN (13:17)
[2023-04-21] MEDS: SODIUM CHLORIDE 0.9% 1000ML 1,000 ML IV SCH (14:19)
[2023-04-21] MEDS: ACETAMINOPHEN 500 MG TAB PO SCH ×2 (14:49→22:45)
[2023-04-21] MEDS: KETOROLAC TROMETHAMINE 15 MG/ML VIAL IV SCH ×2 (14:50→18:12)
[2023-04-21] MEDS: ceFAZolin 2000MG 2,000 MG/15 ML SYR IV SCH (18:11)
[2023-04-21] MEDS: METHOCARBAMOL 750 MG TABLET PO SCH (20:09)
[2023-04-21] MEDS: DOCUSATE SODIUM 100 MG CAP PO SCH (20:09)
[2023-04-21] MEDS: FLUTICASONE/VILANTEROL 200/25MCG 14 PUFFS/INHALER INH SCH (20:10)
[2023-04-21] MEDS: ASPIRIN 81 MG ECTAB PO SCH (20:10)
[2023-04-21] MEDS ORDERED: SENNA 8.6 MG TAB PO SCH (21:00)
[2023-04-22] MEDS: KETOROLAC TROMETHAMINE 15 MG/ML VIAL IV SCH ×2 (00:21→05:15)
[2023-04-22] MEDS: SODIUM CHLORIDE 0.9% 1000ML 1,000 ML IV SCH (01:15)
[2023-04-22] MEDS: ceFAZolin 2000MG 2,000 MG/15 ML SYR IV SCH (02:11)
[2023-04-22] MEDS: ACETAMINOPHEN 500 MG TAB PO SCH (05:15)
[2023-04-22] MEDS ORDERED: dexAMETHasone 4 MG TAB PO SCH (08:00)
[2023-04-22] MEDS: ASPIRIN 81 MG ECTAB PO SCH (08:15)
[2023-04-22] MEDS: METHOCARBAMOL 750 MG TABLET PO SCH (08:15)
[2023-04-22] MEDS: FLUTICASONE/VILANTEROL 200/25MCG 14 PUFFS/INHALER INH SCH (08:15)
[2023-04-22] MEDS: DOCUSATE SODIUM 100 MG CAP PO SCH (08:16)
--- NOTE | 2023-04-22 08:30 | Orthopedic Progress Note ---
Date of Service April 22, 2023 Assessment & Plan (1) Status post left knee replacement: Overall he is doing very well. Is not having much pain in the left knee. He will be seen by physical therapy today for ambulation and range of motion exercises. The nursing staff can change his dressing after physical therapy. He is on aspirin for DVT prophylaxis. He can be discharged home later today. He will follow-up with orthopedics in 2 weeks. Chuy Loza was seen and examined at bedside this morning. Overall he is doing very well. Is not having much pain in the left knee. He has been up and ambulating with physical therapy. He has no complaints.. Review of Systems All systems reviewed & are unremarkable except as noted in HPI & below. Physical Exam On physical examination of the left knee, the dressing is clean and dry. His leg is out full extension. He has active dorsiflexion plantarflexion of his left ankle.. Results & Data Results & Data Laboratory Results . Diagnostic Findings Postoperative x-rays of the left knee show the prosthesis to be in anatomic alignment without any evidence of fracture, dislocation, or loosening.. PG Care Time/CCT Total # of Minutes Spent Total Time Spent with Patient: Total time spent is greater than 50% in coordination of care (as documented) at patient's floor/unit and/or counseling patient: Coding Level of Care Code 93446 Post Operative Follow-Up Diagnoses Status post left knee replacement Z96.652
--- NOTE | 2023-04-22 08:32 | Discharge Summary ---
Date of Service April 22, 2023 Admission HPI (Per Admitting) Dago is a pleasant 67-year-old male who has been dealing with chronic left knee pain. He has had 3 knee arthroscopies in the past, the most recent being in [address] Goff. He has had multiple MRIs of his left knee as well, the most recent being in October 2022. The MRIs do show some worsening osteoarthritis of the left knee. He is really struggling with the left knee. He has failed years of conservative treatment including cortisone injections, physical therapy, ant-inflammatories, and multiple arthroscopies. He has also been seeing pain management. He really limps with his left knee. It is painful everyday. It keeps him from doing activities he enjoys. After failing conservative treatment, he has elected proceed with a left total knee arthroplasty. Admission Exam (Per Admitting) On physical examination of the left knee, he has a slight varus deformity. He has tenderness palpation of the distal medial femoral condyle and over the medial joint line.. Principal Diagnosis Same as "Discharge Diagnosis" noted below under Discharge Instructions. Discharge Exam On physical examination of the left knee, the dressing is clean and dry. His leg is out full extension. He has active dorsiflexion plantarflexion of his left ankle.. Discharge Data Procedures Performed Operation Date: 04/21/23 10:20 Actual Procedures p Left Total Knee Arthroplasty, Cemented(Left) - Nikolas Killian DO Ordered Studies 04/21/23 05:00 US - OR guided needle placemen Routine Hospital Course (1) Status post left knee replacement: On April 21, 2023 Dago arrived at [facility] and underwent a left knee replaced without complication. He had a spinal anesthetic. Postoperatively he was started on aspirin for DVT prophylaxis and transferred to the general orthopedic floors. His hospital course was uneventful. On postop day #1, his vital signs were stable and his pain was well controlled. He was able to participate well with physical therapy doing ambulation and range of motion exercises. He was then discharged home. He will follow-up with orthopedics in 2 weeks. PG Care Time/CCT Total # of Minutes Spent Total Time Spent with Patient: Total time spent is greater than 50% in coordination of care (as documented) at patient's floor/unit and/or counseling patient: Discharge Plan Discharge Items Patient Disposition: Home - Home Health Services Reason For Visit: Left Knee Degenerative Joint Disease Discharge Diagnosis: Left knee replacement Activity: Per Instructions section Non-emergency contact: Surgeon Call non-emergency contact if: your wound has increased redness and your wound has increased drainage Follow-up/Referrals: Mariaelena Carpenter PA-C [Primary Care Provider] - Diet: Regular Addtl Attending Provider Instructions: Activity and Therapy Recommendations: * If you are using [facility] then therapy will be provided at your home until they feel you have accomplished all of your goals. * If you are using [facility] then Physical Therapy will be provided until they feel you are ready to start Outpatient Physical Therapy. * If you are not using home therapy then Outpatient Physical Therapy should start about 3-5 days from your day of surgery. Therapy will last about 6-10 weeks * It is important not to put a pillow under your knee when you are relaxing or sleeping. It is just as important to make sure you are getting your knee perfectly straight as it is to regain your knee bend. * You were shown a series of exercises in the hospital. Do these exercises three times each day including the exercises you were shown in physical therapy. * Get up and walk several times each day. For the first four weeks, try not to stand or walk for more than one hour at a time. If you do stand or walk for more than one hour, you will not hurt anything, but your leg will likely swell. * As you feel comfortable, you may change from the walker or crutches to a cane and then to independent walking. Medications: * Narcotic You will likely be sent home from the hospital with a prescription for the narcotic pain medication that worked best throughout your stay. * Aspirin Most patients will be required to take Aspirin 81mg twice a day for 6 weeks after surgery. This is obtained [id number] and a prescription is not necessary. * Other medications may be prescribed for specific circumstances. If you have any questions, please call the office at . * Resume previous home medications unless otherwise instructed TEDs/Elastic Stockings: The white elastic stockings help limit swelling and prevent blood clots from forming in your legs.~ The more you wear them, the more they work. Wear them for six weeks. Dressing Care: The dressing can be changed after physical therapy on postop day #1. Daily dry dressing changes for a few days, especially if the incision is still draining some. If the incision is not draining then you may leave the rob open to air. If there is a little bit of drainage or if the rob are getting stuck on your clothing then cover the incision with a dry dressing. The rob will be removed at your 2 week follow-up appointment. Showering: You may shower 5 days from the day of surgery as long as the incision is no longer draining. You may shower with the rob exposed. Let soapy water run over the rob and pat them dry. Do not scrub or soak the incision. Things To Watch For: * Drainage from the incision site that occurs more than one week after your surgery. * Increased redness at the incision site. * Fever above 102 degrees Fahrenheit. * Unusual chest pain or shortness of breath. * Call [facility] at with any of the above problems Follow-Up Visit: Follow-up with Dr. Killian's PA (Nikolas Guerra) 2-3 weeks after your day of surgery. He will remove your rob and answer any questions. If you have any additional questions or concerns, Dr Killian is usually in the office at the same time and will be available An appointment was probably scheduled when you signed-up for surgery in the office. If you have any questions call Office Instructions: More detailed instructions as well as Frequently Asked Questions were provided in a folder by our office when you signed-up for surgery. Please review these instructions when you get home. If you have any further questions or concerns, please feel free to call the office at [phone] Pending Studies at Discharge: No Stand-Alone Forms: [facility], Sm[facility] Cessation Medications and DC Order Prescriptions: New oxycodone-acetaminophen 5-325 mg tablet 1 tab PO Q6H PRN (Reason: pain) Qty: 30 0RF Continued magnesium oxide 420 mg tablet 420 mg PO QAM lisinopril 20 mg tablet 20 mg PO QAM isosorbide mononitrate 60 mg tablet extended release 24 hr 60 mg PO QAM methocarbamol 750 mg tablet 750 mg PO BID cholecalciferol (vitamin D3) [Vitamin D3] 25 mcg (1,000 unit) tablet 25 mcg PO QAM cyanocobalamin (vitamin B-12) 1,000 mcg capsule 1,000 mcg PO Q30D albuterol sulfate [ProAir HFA] 90 mcg/actuation Hfa Aerosol Inhaler 2 puff INHALATION QID PRN (Reason: SHORT OF BREATH) nitroglycerin 0.4 mg Tablet, Sublingual 0.4 mg sublingual UD PRN (Reason: Chest Pain) fluticasone propion-salmeterol 250-50 mcg/dose Blister With Device 1 inh INHALATION BID metoprolol succinate 25 mg Tablet Extended Release 24 Hr 12.5 mg PO QAM Rx Instructions: Take 1/2 of the 25mg tablet by mouth every morning atorvastatin 20 mg Tablet 40 mg PO QAM Qty: 1 3RF Changed aspirin 81 mg Tablet,Delayed Release (Dr/Ec) 81 mg PO BID 42 Days Qty: 0 0RF Admission Data Admit Date/Time: 04/21/23 12:05 Attending Provider: Nikolas Killian Admit Provider: Nikolas Killian Primary Care Provider: Mariaelena Carpenter Other Providers: [facility]
[2023-04-22] MEDS ORDERED: MULTIVITAMIN TAB PO SCH (09:00)
[2023-04-22] MEDS ORDERED: METOPROLOL SUCC 25MG EXT REL TAB PO SCH (09:00)
[2023-04-22] MEDS ORDERED: lisinopril 20 MG TAB PO SCH (09:00)
[2023-04-22] MEDS ORDERED: MAGNESIUM OXIDE 400 MG TAB PO SCH (09:00)
[2023-04-22] MEDS ORDERED: ISOSORBIDE MONO EXTENDED REL 60 MG TABCR PO SCH (09:00)
[2023-04-22] MEDS ORDERED: ATORVASTATIN 40 MG TAB PO SCH (09:00)
== END 2023-04-22 11:02 | disposition home health service (06) ==
LOC: 3E 08:14 → ASU 08:14